=== PATIENT | female | born 1965 | race African-American/Black ===

== ENCOUNTER 2017-07-17 15:42 | Outpatient (CLI) | payer OTHER | END 2017-07-17 15:43 | disposition home or self-care (01) | LOC: BICRAD 15:42 | PROVIDERS: ATTEND Internal Medicine | DX: Z02.71 Encounter for disability determination (principal) | CPT/HCPCS: 71046 ==

== ENCOUNTER 2018-02-25 08:17 | Inpatient (IN) | payer OTHER, SELFPAY ==
[2018-02-25 10:09] LABS: Troponin I 0.015 ng/mL (< 0.028)
[2018-02-25 12:22] LABS: Troponin I Less than 0.010 ng/mL (< 0.028)
[2018-02-25] MEDS ORDERED: Ondansetron ODT 4 MG TAB PO PRN (17:29)
[2018-02-25] MEDS ORDERED: hydrALAZINE 20 MG/ML VIAL SLOW IVP PRN (17:29)
[2018-02-25] MEDS ORDERED: Dextrose 50% Abboject 50 ML SYRINGE SLOW IVP PRN (17:29)
[2018-02-25] MEDS ORDERED: cloNIDine 0.1 MG TAB PO PRN (17:29)
[2018-02-25] MEDS ORDERED: Dextrose 5% in Water 1,000 ML IV PRN (17:29)
[2018-02-25] MEDS ORDERED: Ondansetron PF 4 MG/2 ML Vial IVP PRN (17:29)
[2018-02-25 17:31] VITALS: BMI 26.2
[2018-02-25] MEDS: Carvedilol 6.25 MG TAB PO SCH (20:12)
[2018-02-25] MEDS: Famotidine 20 MG TAB PO SCH (20:14)
[2018-02-25] MEDS: Mometasone/Formoterol 120 PUFF INHALER INH SCH (20:27)
[2018-02-25] MEDS: cefTRIAXone\\ROCEPHIN 2 GM in Sodium Chloride 0.9% 100 ML IVPB SCH (20:47)
--- NOTE | 2018-02-25 21:41 | HP ---
DATE OF ADMISSION: 02/25/2018 PRIMARY CARE PROVIDER: Dr. Sara Clemens. CHIEF COMPLAINT: Shortness of breath and cough. HISTORY OF PRESENT ILLNESS: This is a 52-year-old -Swedish female who presents to [facility] Emergency Department in transfer from [place] [facility] after complaining of incr easing shortness of breath over the last 48 to 72 hours. The patient was initially evaluated by EMS with O2 saturations measured at 89% to 90% on room air. Patient received DuoNebs x2 in addition to S shawna-Medrol and placed on oxygen supplementation. Patient states she has noticed increasing shortness of breath and was exposed to a friend who had upper respiratory infection and symptoms in the last 4 days. Patient denied any productive cough, but does state she has a history of asthma and COPD and has a home nebulizer which she has been using regularly. Patient also took cough drops as well as Al -Ruby Cold medicine. Patient states none of her interventions were alleviated her symptoms. Pat ient denies any other chemical exposure, recent drug use or tobacco. Patient denies any recent diagn osis of pneumonia, immunosuppressant medications or travel history. In the emergency room, patient u nderwent chest imaging showing bilateral infiltrates receiving bronchodilator therapy and Solu-Medrol . Patient also received IV Solu-Medrol and bronchodilator therapy and [facility]. PAST MEDICAL HISTORY: 1. History of hepatitis B. 2. Diabetes mellitus type 2, on oral hypoglycemics. 3. Diastolic dysfunction with ejection fraction of 40-45%. 4. Chronic obstructive pulmonary disease. 5. History of tobacco use, none currently. 6. Hyperlipidemia. 7. Hypertension. PAST SURGICAL HISTORY: Status post hysterectomy. CURRENT MEDICATIONS: 1. Metformin 500 mg p.o. daily. 2. ProAir HFA 2 puffs inhaled q.4 hours p.r.n. 3. Carvedilol 6.25 mg p.o. b.i.d. 4. Lasix 40 mg p.o. b.i.d. 5. Spironolactone 12.5 mg p.o. daily. 6. Nitrostat 0.4 mg sublingually p.r.n. chest pain. 7. Paxil 20 mg p.o. daily. 8. Aspirin 325 mg p.o. daily. 9. DuoNeb 3 mL nebulized q.i.d. p.r.n. ALLERGIES: No known drug allergies. FAMILY HISTORY: Mother with congestive heart failure, chronic kidney disease, and diabetes mellitus. Father with prostate and throat cancer. SOCIAL HISTORY: Patient formerly used tobacco products x15 years. History of alcohol use socially. No current illicit drug use. Remote history of cocaine and marijuana use. with 2 children . Lives in [place], [place]. REVIEW OF SYSTEMS: The following complete review of systems was negative, unless otherwise mentioned in the HPI or below: Constitutional: Weight loss or gain, ability to conduct usual activities. Sk in: Rash, itching. Eyes: Double vision, pain. ENT/Mouth: Nose bleeding, neck stiffness, pain, te nderness. Cardiovascular: Palpitations, dyspnea on exertion, orthopnea. Respiratory: Shortness of breath, wheezing, cough, hemoptysis, fever or night sweats. Gastrointestinal: Poor appetite, abdom inal pain, heartburn, nausea, vomiting, constipation, or diarrhea. Genitourinary: Urgency, frequenc y, dysuria, nocturia. Musculoskeletal: Pain, swelling. Neurologic/Psychiatric: Anxiety, depressio n. Allergy/Immunologic: Skin rash, bleeding tendency. PHYSICAL EXAMINATION: VITAL SIGNS: Currently, blood pressure 154/90, pulse 82, respiratory rate 20, temperature 98.7 degre es Fahrenheit, O2 saturation 98% on 3 liters per minute by nasal cannula. GENERAL APPEARANCE: This is a 52-year-old -Swedish female, alert and oriented x3, pleasant, in no acute distress. HEENT: Pupils are equal, round, and reactive to light and accommodation. Extraocular muscles are in tact. No scleral icterus, no conjunctival injection. Nares patent. OP is clear. Teeth in fair rep air. NECK: Supple, no cervical adenopathy, no thyromegaly, no carotid bruits, no JVD appreciated. Cervic al spine with full active and passive range of motion. No meningeal signs appreciated. LUNGS: Coarse breath sounds bilaterally with expiratory wheezes and basilar crackles. CARDIOVASCULAR: S1, S2, without noted murmur, rub or gallop. ABDOMEN: Rounded, soft, nontender, nondistended. Bowel sounds are positive in all four quadrants. There is no hepatosplenomegaly, no abdominal bruits, no rebound or guarding appreciated. EXTREMITIES: Warm and dry with fair turgor. No clubbing, cyanosis or asymmetric edema appreciated. Pulses palpable distally at the dorsalis pedis, posterior tibial, and popliteal arteries bilaterally . Capillary refill less than 2 seconds. NEUROLOGIC: Cranial nerves II-XII are grossly intact. No focal or lateralizing signs appreciated. PERTINENT LABORATORY AND X-RAY FINDINGS: Sodium 142, potassium 3.6, chloride 108, CO2 of 26, BUN 14, creatinine 0.94, glucose 128. Hemoglobin A1c 6.2, glucose 128, calcium 8.7. LFTs within normal chairez its. Troponin I negative x3. BNP 108, previously noted 33 on 07/05/2017 and 107 on 04/29/2016. CBC showed a white blood cell count of 4.2, hemoglobin 10.7, hematocrit 35, MCV 67, platelet count 128 w ith normal differential. Portable chest x-ray dated 02/25/2018 showed bilateral opacities with quest ionable multifocal infiltrates. ASSESSMENT AND PLAN: 1. Acute hypoxic respiratory failure. Patient will be observed on the telemetry unit. Suspect mult ifactorial including component of potential pneumonia with chronic obstructive pulmonary disease. We will continue treatment as outlined in #2. Oxygen supplementation to maintain O2 saturation greater than or equal to 90%. Solu-Medrol 40 mg IV q.6 hours, Dulera 2 puffs inhaled b.i.d. 2. Bilateral pneumonia. Suspect bacterial in origin; however, atypical. Suspect gram positive orga nisms. Continue Zithromax 500 mg IV q.24 hours with additional Rocephin 2 grams IV q.24 hours. Bloo d cultures x2 pending. DuoNebs q.4 hours. 3. Hypertension, labile. We will resume home antihypertensive regimen after confirmation of home re gimen. P.r.n. hydralazine and clonidine. 4. Diabetes mellitus type 2. Continue home regimen of metformin. Serial Accu-Cheks before meals an d at bedtime. ADA diet. 5. Diastolic dysfunction. Appears compensated currently. Resume home regimen to include Lasix 40 m g b.i.d. 6. Prophylaxis. Sequential compression devices while in bed. Pepcid 20 mg p.o. b.i.d. 7. Influenza vaccination update prior to discharge. 8. Code status is FULL. Surrogate medical decision maker not identified.
[2018-02-25] MEDS: Azithromycin 500 MG in Sodium Chloride 0.9% 250 ML 250 ML IVPB SCH (21:47)
[2018-02-26] MEDS: Benzonatate 100 MG CAP PO PRN (02:41)
[2018-02-26 04:39] LABS: Band 1 % (5-11); Hemoglobin 10.4 g/dL (12.0-16.0); Hypochromia SLIGHT = 6-15 cells (100X) (0-5/hpf); Lymphocytes 19 % (21-51); MDiff Complete? YES; Mean Corpuscular HGB CONC 32.7 g/dL (32.0-36.0); Mean Corpuscular Hemoglobin 21.2 pg (27.0-31.0); Mean Platelet Volume 8.6 fL (7.4-10.4); Microcytosis SLIGHT = 6-15 cells (100X) (0-5/hpf); Monocytes 2 % (0-10); Neutrophil 78 % (42-75); PLT Morphology Comment Appears Decreased; Platelet Count 120 thou/uL (130-400); RBC Distribution Width 18.1 % (11.5-14.5); Red Blood Cell (RBC) Count 4.91 mill/uL (4.20-5.40); Target Cells MODERATE= 6-15 cells (100X) (0-1/hpf); White Blood Cell (WBC) Count 4.9 thou/uL (4.8-10.8)
[2018-02-26 04:55] LABS: Anion Gap 11 mmol/L (10-20); BUN (Urea Nitrogen) 14 mg/dL (9.8-20.1); Calc. Creatinine Clearance 74 mL/min (70-130); Calcium 8.7 mg/dL (7.8-10.44); Carbon Dioxide 23 mmol/L (22-29); Chloride 106 mmol/L (98-107); Estimated GFR-MDRD 71; Glucose 288 mg/dL (70-105); Potassium 4.2 mmol/L (3.5-5.1); Sodium 136 mmol/L (136-145)
[2018-02-26] MEDS: HumaLOG 300 UNITS/3 ML VIAL SC PRN ×4 (05:11→21:49)
[2018-02-26] MEDS: Mometasone/Formoterol 120 PUFF INHALER INH SCH ×2 (08:00→18:43)
[2018-02-26] MEDS: Lisinopril 20 MG TAB PO SCH (08:24)
[2018-02-26] MEDS: Spironolactone 25 MG TAB PO SCH (08:24)
[2018-02-26] MEDS: metFORMIN 500 MG TAB PO SCH (08:24)
[2018-02-26] MEDS: Famotidine 20 MG TAB PO SCH ×2 (08:24→20:17)
[2018-02-26] MEDS: PARoxetine 20 MG TAB PO SCH (08:24)
[2018-02-26] MEDS: Carvedilol 6.25 MG TAB PO SCH ×2 (08:25→20:17)
[2018-02-26] MEDS ORDERED: guaiFENesin 200 MG TAB PO PRN (08:47)
--- NOTE | 2018-02-26 08:50 | PDOC.PN ---
- Subjective Encounter Start Date: 02/26/18 Encounter Start Time: 08:49 Patient sitting up in bed, she reports feeling better today but still complaining of a cough. She states she has some tightness in her chest worse with inspiration and cough. She reports some mild shortness of breath, but denies fever, chills, nausea or vomiting. - Objective Resuscitation Status: Resuscitation Status FULL:Full Resuscitation MAR Reviewed: Yes Vital Signs & Weight: Vital Signs (12 hours) Temp Pulse Resp BP Pulse Ox 02/26/18 08:00 96 02/26/18 07:58 93 18 95 02/26/18 07:24 97.9 F 71 16 154/105 H 98 02/26/18 04:15 97.9 F 70 22 H 166/91 H 97 02/26/18 02:47 97 02/25/18 23:50 98 02/25/18 23:47 97.5 F L 65 16 161/90 H 98 Weight Weight 158 lb I&O: 02/25/18 02/26/18 02/27/18 06:59 06:59 06:59 Intake Total 350 Output Total 700 Balance -350 Result Diagrams: 02/26/18 03:52 02/26/18 03:52 Additional Labs: Accuchecks 02/26/18 02/25/18 04:20 21:15 POC Glucose 267 H 208 H Radiology Reviewed by me: Yes Phys Exam - Physical Examination Mild due to wheezing and shortness of breath HEENT: PERRLA, moist MMs, oral pharynx no lesions Neck: no nodes, no JVD, supple Bilateral expiratory wheezes noted Cardiovascular: RRR, no significant murmur, no rub Gastrointestinal: soft, non-tender, no distention, positive bowel sounds Musculoskeletal: no edema, pulses present Neurological: non-focal, normal sensation, moves all 4 limbs Lymphatic: no nodes Psychiatric: normal affect, A&O x 3 Skin: no rash, normal turgor, cap refill <2 seconds Dx/Plan (1) Pneumonia Code(s): J18.9 - PNEUMONIA, UNSPECIFIED ORGANISM Status: Acute (2) COPD exacerbation Code(s): J44.1 - CHRONIC OBSTRUCTIVE PULMONARY DISEASE W (ACUTE) EXACERBATION Status: Acute (3) Diabetes mellitus Code(s): E11.9 - TYPE 2 DIABETES MELLITUS WITHOUT COMPLICATIONS Status: Chronic Qualifiers: Diabetes mellitus type: type 2 (4) Hypertension Code(s): I10 - ESSENTIAL (PRIMARY) HYPERTENSION Status: Chronic Comment: Dietary indiscretions with high sodium foods and did not take coreg and lisinopril at right doses - Plan cont current plan of care, continue antibiotics, respiratory therapy, DVT proph w/SCDs * Continue supportive treatments with carol rothman, add guaifenesin for cough * IV solumedrol with plan to transition to oral prednisone taper * Continue antibiotics including IV azithromycin and ceftriaxone with plan to transition to oral equivalent prior to discharge * Monitor patient progress, likely discharge in the next 24 hours if improved
[2018-02-26] MEDS ORDERED: Prevnar 13-Val Conj/PF 0.5 ML SYRINGE IM ONE (09:00)
[2018-02-26] MEDS: Acetaminophen 500 MG TAB PO PRN (15:27)
[2018-02-26] MEDS: cefTRIAXone\\ROCEPHIN 2 GM in Sodium Chloride 0.9% 100 ML IVPB SCH (17:09)
[2018-02-26] MEDS: Azithromycin 500 MG in Sodium Chloride 0.9% 250 ML 250 ML IVPB SCH (20:17)
[2018-02-27] MEDS: Acetaminophen 500 MG TAB PO PRN ×4 (00:03→21:02)
[2018-02-27] MEDS: Benzonatate 100 MG CAP PO PRN ×3 (00:03→21:02)
[2018-02-27] MEDS: HumaLOG 300 UNITS/3 ML VIAL SC PRN ×4 (05:17→21:05)
[2018-02-27] MEDS: Mometasone/Formoterol 120 PUFF INHALER INH SCH ×2 (07:40→18:49)
[2018-02-27] MEDS: metFORMIN 500 MG TAB PO SCH (08:48)
[2018-02-27] MEDS: PARoxetine 20 MG TAB PO SCH (08:48)
[2018-02-27] MEDS: Carvedilol 6.25 MG TAB PO SCH ×2 (08:48→21:02)
[2018-02-27] MEDS: Spironolactone 25 MG TAB PO SCH (08:48)
[2018-02-27] MEDS: Lisinopril 20 MG TAB PO SCH (08:48)
[2018-02-27] MEDS: Famotidine 20 MG TAB PO SCH ×2 (08:49→21:03)
[2018-02-27 09:35] LABS: #Lymphocytes 0.5 thou/uL (1.20-3.40); #Monocytes 0.2 thou/uL (0.11-0.59); #Neutrophils 7.3 thou/uL (1.40-6.50); %Eosinophils 0.2 % (0.0-10.0); %Lymphocytes 6.4 % (21.0-51.0); %Neutrophils 90.5 % (42.0-75.0); Hemoglobin 11.3 g/dL (12.0-16.0); Mean Corpuscular HGB CONC 32.4 g/dL (32.0-36.0); Mean Corpuscular Hemoglobin 21.1 pg (27.0-31.0); Mean Corpuscular Volume 65.2 fL (78.0-98.0); Mean Platelet Volume 8.4 fL (7.4-10.4); Platelet Count 141 thou/uL (130-400); RBC Distribution Width 18.3 % (11.5-14.5); Red Blood Cell (RBC) Count 5.36 mill/uL (4.20-5.40)
[2018-02-27 09:50] LABS: Anion Gap 12 mmol/L (10-20); BUN (Urea Nitrogen) 19 mg/dL (9.8-20.1); Calc. Creatinine Clearance 73 mL/min (70-130); Carbon Dioxide 24 mmol/L (22-29); Chloride 105 mmol/L (98-107); Estimated GFR-MDRD 67; Glucose 358 mg/dL (70-105); Potassium 4.4 mmol/L (3.5-5.1); Sodium 137 mmol/L (136-145)
[2018-02-27 10:04] LABS: Hypochromia MODERATE=16-30 cells (100X) (0-5/hpf); MDiff Complete? YES; Microcytosis MODERATE=15-30 cells (100X) (0-5/hpf); PLT Morphology Comment Appears Adequate; Polychromasia SLIGHT = 2-3 cells (100X) (0-2/hpf); Target Cells MODERATE= 6-15 cells (100X) (0-1/hpf)
--- NOTE | 2018-02-27 10:53 | RAD ---
PORTABLE CHEST: History: Cough. Comparison: 02-25-18 FINDINGS: Heart size is enlarged. Pulmonary vessels appear engorged with increased parenchymal markings, more i n the parahilar distribution. On the previous examination the appear to be more upper lobe. I think t his is more just technique related. In reviewing an old examination from 07-17-17, I do not see that t here is a definite interval change. I believe that these changes are related to interstitial fibrotic lung change. IMPRESSION: Cardiomegaly with chronic interstitial fibrotic lung change. POS: ISHA
--- NOTE | 2018-02-27 12:36 | PDOC.PN ---
- Subjective Encounter Start Date: 02/27/18 Encounter Start Time: 10:00 Patient lying in bed, she reports feeling a little better today, but remains short of breath with persistent cough. She denies chest pain. Is reports some side and rib pain from coughing worse with inspiration. - Objective Resuscitation Status - Order Detail: 02/26/18 12:20 Resuscitation Status Routine Resuscitation Status: FULL: Full Resuscitation Discussed with: Per previous order MAR Reviewed: Yes Vital Signs & Weight: Vital Signs (12 hours) Temp Pulse Resp BP Pulse Ox 02/27/18 11:00 97.1 F L 69 20 174/85 H 97 02/27/18 10:49 73 16 02/27/18 08:11 97.1 F L 81 20 172/93 H 96 02/27/18 07:40 96 02/27/18 07:39 71 20 96 02/27/18 05:07 98.1 F 65 20 139/82 95 02/27/18 02:34 72 18 95 Weight Weight 163 lb 8 oz I&O: 02/26/18 02/27/18 02/28/18 06:59 06:59 06:59 Intake Total 350 1400 Output Total 700 850 Balance -350 550 Result Diagrams: 02/27/18 09:20 02/27/18 09:20 Additional Labs: Accuchecks 02/27/18 02/27/18 02/26/18 11:10 05:15 21:21 POC Glucose 344 H 273 H 260 H 02/26/18 17:07 POC Glucose 242 H Radiology Reviewed by me: Yes (Showing chronic interstitial fibrotic changes) EKG Reviewed by me: Yes Phys Exam - Physical Examination Constitutional: NAD HEENT: PERRLA, moist MMs, oral pharynx no lesions Neck: no nodes, no JVD, supple Expiratory wheezes throughout, improved since 02/26 Cardiovascular: RRR, no significant murmur, no rub Gastrointestinal: soft, non-tender, positive bowel sounds Musculoskeletal: no edema, pulses present Neurological: non-focal, normal sensation, moves all 4 limbs Lymphatic: no nodes Psychiatric: normal affect, A&O x 3 Skin: no rash, normal turgor, cap refill <2 seconds Dx/Plan (1) Pneumonia Code(s): J18.9 - PNEUMONIA, UNSPECIFIED ORGANISM Status: Acute (2) COPD exacerbation Code(s): J44.1 - CHRONIC OBSTRUCTIVE PULMONARY DISEASE W (ACUTE) EXACERBATION Status: Acute (3) Diabetes mellitus Code(s): E11.9 - TYPE 2 DIABETES MELLITUS WITHOUT COMPLICATIONS Status: Chronic Qualifiers: Diabetes mellitus type: type 2 (4) Hypertension Code(s): I10 - ESSENTIAL (PRIMARY) HYPERTENSION Status: Chronic Comment: Dietary indiscretions with high sodium foods and did not take coreg and lisinopril at right doses - Plan cont current plan of care, DVT proph w/SCDs * Due to elevated blood pressures will increase carvedilol to 12.5mg BID * Chest xray displaying interstitial fibrotic changes, ordered CT chest for evaluation and consult placed for pulmonology for evaluation * Continue Antibiotics including ceftriaxone and azithromycin * IV solumedrol, along with Duoneb treatments * Continue all other home medications
[2018-02-27] MEDS ORDERED: Carvedilol 6.25 MG TAB PO SCH (12:45)
--- NOTE | 2018-02-27 12:52 | PDOC.EVN ---
Event Note - Event Note Event Note: I have interviewed, examined and discussed pt with Tani LAWS regarding dyspnea and interstitial lung changes on current abx, Solumedrol. Mild improvement in symptoms but maintaining saturations on RA. Repeat PCXR showing persistent interstitial changes. Check CT chest today, ? sarcoidosis. See progress note documentation for full details. Consult Pulmonology for further recommendations.
--- NOTE | 2018-02-27 14:49 | CT ---
CT THORAX WITH CONTRAST: DATE: 02/27/18 HISTORY: 52-year-old female with cough and dyspnea. Rule out fibrotic disease. COMPARISON: CT pulmonary angiogram of 11/20/13. FINDINGS: The previously demonstrated heterogeneously distributed fibrotic interstitial lung disease has worsen ed. This is present in the bilateral upper lobes and lower lobes, but slightly more severe in the upp er lobes. They have both central and peripheral components (no subpleural dominance). They are associ ated with diffuse mild to moderate bronchiectasis in the areas involved. There are patchy areas of pu lmonary parenchyma that are relatively spared, most notably the right middle lobe. The pattern is not that of IPF/UIP. There is no pneumothorax or pleural effusion. Previously, there was severe, conflu ent soft tissue density without calcification throughout much of the mediastinum, especially subcarin al region, with contiguous extension into the bilateral susannah. This is still present, but has improved . No calcified mediastinal or hilar lymph nodes are present. Again noted are the very nodular margins of the liver. There is probably splenomegaly, but only the uppermost portion of the spleen is includ ed on this scan, and therefore the evaluation is incomplete. There are small paraesophageal varices i n the thoracoabdominal junction adjacent to the aorta. No thoracic aortic aneurysm or dissection. No cardiomegaly or pericardial effusion. IMPRESSION: 1. Severe bilateral pulmonary fibrosis has worsened since 2014. (This is NOT idiopathic pulmonary fi brosis/usual interstitial pneumonia). 2. Mediastinal and bilateral hilar lymphadenopathy has slightly improved compared to 2014. 3. Hepatic cirrhosis. 4. Paraesophageal varices. JAME Almanzar POS: ISHA
[2018-02-27] MEDS ORDERED: Iopamidol 370 76% 100 ML VIAL ONE (16:46)
[2018-02-27] MEDS: cefTRIAXone\\ROCEPHIN 2 GM in Sodium Chloride 0.9% 100 ML IVPB SCH (17:12)
[2018-02-27] MEDS: Azithromycin 500 MG in Sodium Chloride 0.9% 250 ML 250 ML IVPB SCH (21:03)
[2018-02-28] MEDS: HumaLOG 300 UNITS/3 ML VIAL SC PRN ×4 (06:14→23:17)
[2018-02-28] MEDS: Mometasone/Formoterol 120 PUFF INHALER INH SCH ×2 (06:40→18:59)
--- NOTE | 2018-02-28 08:47 | CON ---
DATE OF CONSULTATION: 02/27/2018 HISTORY OF PRESENT ILLNESS: 52-year-old female, who was seeing Dr. Madrigal in the remote past, comes into the hospital with shortness of breath, cough, and wheezing. She says, over the last 3 years, she has had history of COPD, asthma diagnosis. She denies any chest pain, chills, or sweats. She was admitted yesterday. X-ray is actually consistent with congestive heart failure. The CAT scan done today shows significant fibrotic changes in both lungs, not much pleural effusion. She says at most she can barely walk 100 feet without getting markedly short of breath. She denies any fever or chills. She has an inhaler at home and a nebulizer, which were prescribed by her primary care physician. PAST MEDICAL HISTORY: Pertinent for CHF, COPD, asthma, previous tobacco abuse, hypertension, apparently hepatitis B, and diabetes. MEDICATIONS: From home includes metformin 500, potassium, Prozac 20, lisinopril 40, Lasix 40 twice a day, Coreg 6.25, and HFA albuterol. ALLERGIES: NONE. SOCIAL HISTORY: Disabled. Alcohol, minimal. Tobacco, smoked maybe a pack every week or so, quit smoking about 4 years ago. PAST SURGICAL HISTORY: Hysterectomy. REVIEW OF SYSTEMS: Otherwise 10-point negative. PHYSICAL EXAMINATION: GENERAL: Appears to be in no acute distress. VITAL SIGNS: Blood pressure is 174/85, saturation 97% on room air, respirations 20, temperature 97, pulse 69. CHEST: Reveals minimal crackles, minimal rhonchi, minimal wheezing bilaterally. CARDIAC: Normal S1 and S2. No gallops. LABORATORY DATA: White count 8000, H and H 11 and 35, platelet count 141. Lytes are normal. IMPRESSION: 1. Bilateral reticulonodular infiltrates consistent with fibrosing lung. 2. Tobacco abuse. 3. Asthma. 4. Diastolic dysfunction. 5. Hepatitis B. PLAN: At this stage, continue empiric antibiotics, neb treatments with steroids and Dulera. Pulmonary function tests prior to discharge. We will notify Dr. Madrigal. We will follow. Job ID: [id number]
[2018-02-28] MEDS: Lisinopril 20 MG TAB PO SCH (08:59)
[2018-02-28] MEDS: metFORMIN 500 MG TAB PO SCH (08:59)
[2018-02-28] MEDS: Spironolactone 25 MG TAB PO SCH (08:59)
[2018-02-28] MEDS: Famotidine 20 MG TAB PO SCH ×2 (09:00→20:33)
[2018-02-28] MEDS: Carvedilol 6.25 MG TAB PO SCH ×2 (09:00→20:32)
[2018-02-28] MEDS: Acetaminophen 500 MG TAB PO PRN ×2 (09:00→23:18)
[2018-02-28] MEDS: PARoxetine 20 MG TAB PO SCH (09:00)
[2018-02-28] MEDS: Benzonatate 100 MG CAP PO PRN (09:00)
--- NOTE | 2018-02-28 16:40 | PDOC.PN ---
- Subjective Encounter Start Date: 02/28/18 Encounter Start Time: 16:40 Patient sitting up in bed, she reports feeling better. She denies chest pain. Mild stable shortness of breath, intermittent cough. CT chest revealed fibrosis. Pulmonology services were consulted, Dr Mooney recommending continuing abx, duonebs, steroids. - Objective Resuscitation Status - Order Detail: 02/26/18 12:20 Resuscitation Status Routine Resuscitation Status: FULL: Full Resuscitation Discussed with: Per previous order MAR Reviewed: Yes Vital Signs & Weight: Vital Signs (12 hours) Temp Pulse Resp BP Pulse Ox 02/28/18 15:52 98.0 F 68 14 141/90 H 96 02/28/18 13:50 66 14 97 02/28/18 10:48 98.0 F 65 20 152/81 H 93 L 02/28/18 09:48 65 16 98 02/28/18 07:45 98.0 F 65 20 173/98 H 95 02/28/18 06:38 61 16 99 02/28/18 05:12 98.4 F 63 16 172/104 H 97 Weight Weight 167 lb 11.2 oz I&O: 02/27/18 02/28/18 03/01/18 06:59 06:59 06:59 Intake Total 1400 1950 Output Total 850 Balance 550 1950 Result Diagrams: 02/27/18 09:20 02/27/18 09:20 Additional Labs: Accuchecks 02/28/18 02/28/18 02/27/18 10:53 05:19 20:27 POC Glucose 323 H 252 H 258 H 02/27/18 16:29 POC Glucose 256 H Radiology Reviewed by me: Yes Phys Exam - Physical Examination Constitutional: NAD HEENT: PERRLA, moist MMs, oral pharynx no lesions Neck: no nodes, no JVD, supple Respiratory: no rales, no rhonchi Coarse breath sounds Cardiovascular: RRR, no significant murmur, no rub Gastrointestinal: soft, non-tender, positive bowel sounds Musculoskeletal: no edema, pulses present Neurological: non-focal, normal sensation, moves all 4 limbs Lymphatic: no nodes Psychiatric: normal affect, A&O x 3 Skin: no rash, normal turgor, cap refill <2 seconds Dx/Plan (1) Pneumonia Code(s): J18.9 - PNEUMONIA, UNSPECIFIED ORGANISM Status: Acute (2) COPD exacerbation Code(s): J44.1 - CHRONIC OBSTRUCTIVE PULMONARY DISEASE W (ACUTE) EXACERBATION Status: Acute (3) Diabetes mellitus Code(s): E11.9 - TYPE 2 DIABETES MELLITUS WITHOUT COMPLICATIONS Status: Chronic Qualifiers: Diabetes mellitus type: type 2 (4) Hypertension Code(s): I10 - ESSENTIAL (PRIMARY) HYPERTENSION Status: Chronic Comment: Dietary indiscretions with high sodium foods and did not take coreg and lisinopril at right doses (5) Pulmonary fibrosis Code(s): J84.10 - PULMONARY FIBROSIS, UNSPECIFIED Status: Acute - Plan cont current plan of care, plan discussed w/ family, continue antibiotics * Pulmonology services following, planning for PFTs * Continue abx, duonebs, steroids for now * Continue other home medications * Further medical management pending PFTs
[2018-02-28] MEDS: cefTRIAXone\\ROCEPHIN 2 GM in Sodium Chloride 0.9% 100 ML IVPB SCH (17:18)
[2018-02-28] MEDS: Azithromycin 500 MG in Sodium Chloride 0.9% 250 ML 250 ML IVPB SCH (20:31)
--- NOTE | 2018-02-28 20:46 | PRG ---
DATE OF SERVICE: 02/28/2018 SUBJECTIVE: Carmelina Collazo says she is feeling better. Her vital signs have been stable. OBJECTIVE: VITAL SIGNS: She is afebrile, heart rate 68, respiratory rate 14, oximetry is 96% on room air, and blood pressure 141/90. LUNGS: Remarkable for end-expiratory wheezes. HEART: Regular rhythm. ABDOMEN: Soft. EXTREMITIES: Without edema. NEURO: Grossly nonfocal. IMPRESSION: 1. Interstitial lung disease of unclear etiology. At this point in time, did not plan a surgical lung biopsy, but this will need to be followed closely. 2. History of chronic obstructive pulmonary disease and asthma, which is probably more reason for her admission. I doubt this is allergic bronchopulmonary aspergillosis. I doubt she has vasculitis, but it will remain in the differential. PLAN: We will continue to follow . Hopefully debbie will be ready to go home in 24 to 48 hours with close outpatient followup. Job ID: [id number] MTDD
[2018-03-01] MEDS: cloNIDine 0.1 MG TAB PO PRN (05:51)
[2018-03-01] MEDS: HumaLOG 300 UNITS/3 ML VIAL SC PRN ×4 (06:00→20:43)
[2018-03-01] MEDS: Mometasone/Formoterol 120 PUFF INHALER INH SCH ×2 (07:05→18:42)
[2018-03-01] MEDS: Carvedilol 6.25 MG TAB PO SCH ×2 (08:28→20:44)
[2018-03-01] MEDS: Famotidine 20 MG TAB PO SCH ×2 (08:28→20:45)
[2018-03-01] MEDS: PARoxetine 20 MG TAB PO SCH (08:28)
[2018-03-01] MEDS: Lisinopril 20 MG TAB PO SCH (08:29)
[2018-03-01] MEDS: metFORMIN 500 MG TAB PO SCH (08:29)
[2018-03-01] MEDS: Spironolactone 25 MG TAB PO SCH (08:29)
--- NOTE | 2018-03-01 11:38 | PRG ---
DATE OF SERVICE: 03/01/2018 SUBJECTIVE: Carmelina Collazo says she is feeling better. She is still quite bronchospastic. OBJECTIVE: VITAL SIGNS: She is afebrile. Heart rate in the 50s, blood pressure is elevated from 161 to 173 this morning, saturation is 93%. LUNGS: Remarkable for coarse diffuse wheezes. HEART: Regular rhythm. ABDOMEN: Soft and nontender. IMPRESSION: 1. Chronic obstructive pulmonary disease exacerbation. I have send an alpha1-antitrypsin level. 2. Interstitial lung disease with cystic changes. I doubt this is lymphangioleiomyomatosis. Eosinophilic granuloma was still in the differential. 3. Mediastinal lymph nodes that are improved compared to 2014. 4. Cirrhosis with esophageal varices seen on CT. 5. We will continue with current care. She can be switched to p.o. antimicrobial therapy. Probably, she continue with IV steroids for now, but we will decrease the dose. We will continue to follow. I have encouraged her to make sure she follows up with us she does go home, but she is probably several days away from being discharged. 6. ??Cirrhosis Job ID: [id number] MTDD
--- NOTE | 2018-03-01 16:30 | PDOC.PN ---
- Subjective Encounter Start Date: 03/01/18 Encounter Start Time: 10:00 Patient lying in bed, she reports feeling a little better. She denies chest pain , fever or chills. She reports some shortness of breath with intermittent cough. - Objective Resuscitation Status - Order Detail: 02/26/18 12:20 Resuscitation Status Routine Resuscitation Status: FULL: Full Resuscitation Discussed with: Per previous order MAR Reviewed: Yes Vital Signs & Weight: Vital Signs (12 hours) Temp Pulse Resp BP BP Pulse Ox 03/01/18 15:52 63 16 03/01/18 15:49 98.2 F 62 18 144/90 H 93 L 03/01/18 11:28 97.8 F 63 16 138/84 96 03/01/18 10:29 65 16 03/01/18 08:29 173/95 H 03/01/18 08:28 173/95 H 03/01/18 07:33 98.4 F 60 20 161/101 H 93 L 03/01/18 07:05 55 L 16 03/01/18 06:52 55 L 16 03/01/18 05:51 173/95 H 03/01/18 05:00 97.9 F 60 16 173/95 H 96 Weight Weight 168 lb 5 oz I&O: 02/28/18 03/01/18 03/02/18 06:59 06:59 06:59 Intake Total 1950 730 Output Total 900 Balance 1950 -170 Result Diagrams: 02/27/18 09:20 02/27/18 09:20 Additional Labs: Accuchecks 03/01/18 03/01/18 02/28/18 10:32 05:55 20:04 POC Glucose 285 H 246 H 343 H 02/28/18 16:43 POC Glucose 243 H Radiology Reviewed by me: Yes EKG Reviewed by me: Yes Phys Exam - Physical Examination Constitutional: NAD HEENT: PERRLA, moist MMs, oral pharynx no lesions Neck: no nodes, no JVD Coarse breath sounds, expiratory wheezes bilaterally Cardiovascular: RRR, no significant murmur, no rub Gastrointestinal: soft, non-tender, no distention, positive bowel sounds Musculoskeletal: no edema, pulses present Neurological: non-focal, normal sensation, moves all 4 limbs Lymphatic: no nodes Psychiatric: normal affect, A&O x 3 Skin: no rash, normal turgor, cap refill <2 seconds Dx/Plan (1) Pneumonia Code(s): J18.9 - PNEUMONIA, UNSPECIFIED ORGANISM Status: Acute (2) COPD exacerbation Code(s): J44.1 - CHRONIC OBSTRUCTIVE PULMONARY DISEASE W (ACUTE) EXACERBATION Status: Acute (3) Diabetes mellitus Code(s): E11.9 - TYPE 2 DIABETES MELLITUS WITHOUT COMPLICATIONS Status: Chronic Qualifiers: Diabetes mellitus type: type 2 (4) Hypertension Code(s): I10 - ESSENTIAL (PRIMARY) HYPERTENSION Status: Chronic Comment: Dietary indiscretions with high sodium foods and did not take coreg and lisinopril at right doses (5) Pulmonary fibrosis Code(s): J84.10 - PULMONARY FIBROSIS, UNSPECIFIED Status: Acute - Plan cont current plan of care, continue antibiotics * Continue medical management * Pulmonology following, Await Alpha 1 antitrypsin. Continue abx and wean off steroids * Continue duonebs, patient may benefit from bronchoscopy in future but will leave up to pulmonology * BP elevated this morning, but improved after home medications, IV hydralazine prn * d/c tele, transfer to medical floor
[2018-03-01] MEDS: Furosemide 80 MG TAB PO SCH (20:45)
[2018-03-01] MEDS: Acetaminophen 500 MG TAB PO PRN (20:47)
--- NOTE | 2018-03-01 20:47 | PDOC.EVN ---
Event Note - Event Note Event Note: Patient discussed with Tani Jovel and records reviewed. Patient examined. Diffuse rales on lung exam, but less than anticipated after reviewing the CT. Discussed the situation with the patient at length. Also discussed with her daughter by phone. Continuing the steroids for the pulmonary fibrosis/ inflammation. Pulmonary following.
[2018-03-01] MEDS: Cefuroxime Axetil 250 MG TAB PO SCH (20:49)
[2018-03-02] MEDS: HumaLOG 300 UNITS/3 ML VIAL SC PRN ×4 (05:29→21:01)
[2018-03-02] MEDS: Mometasone/Formoterol 120 PUFF INHALER INH SCH ×2 (06:34→18:42)
[2018-03-02] MEDS: cloNIDine 0.1 MG TAB PO PRN (08:42)
[2018-03-02] MEDS: PARoxetine 20 MG TAB PO SCH (08:43)
[2018-03-02] MEDS: Potassium Chloride 20 MEQ TAB PO SCH (08:43)
[2018-03-02] MEDS: Spironolactone 25 MG TAB PO SCH (08:43)
[2018-03-02] MEDS: Cefuroxime Axetil 250 MG TAB PO SCH ×2 (08:43→20:35)
[2018-03-02] MEDS: Famotidine 20 MG TAB PO SCH ×2 (08:44→20:36)
[2018-03-02] MEDS: metFORMIN 500 MG TAB PO SCH (08:44)
[2018-03-02] MEDS: Lisinopril 20 MG TAB PO SCH (08:44)
[2018-03-02] MEDS: Furosemide 80 MG TAB PO SCH ×2 (08:45→20:37)
[2018-03-02] MEDS: Carvedilol 6.25 MG TAB PO SCH ×2 (09:22→20:35)
--- NOTE | 2018-03-02 13:02 | PRG ---
DATE OF SERVICE: 03/02/2018 SUBJECTIVE: She says she is still short of breath with minimal exertion. She does not feel like she is able to go home at the current time. OBJECTIVE: VITAL SIGNS: Temperature 97.7, pulse 60, respirations 16, O2 saturation 96%, and blood pressure 167/96. HEENT: Unremarkable. NECK: No adenopathy or JVD. LUNGS: Clear, but distant. CARDIAC: S1 and S2. Regular. ABDOMEN: Soft. EXTREMITIES: No edema. ASSESSMENT: 1. Chronic obstructive pulmonary disease with exacerbation. 2. Rule out alpha-1 antitrypsin disease. PLAN: Basically, awaiting improvement in the patient's performance status. She is continuing therapy with IV steroids, nebulization treatments, and Dulera. PT will be consulted. Job ID: [id number]
--- NOTE | 2018-03-02 14:35 | PDOC.PN ---
- Subjective Encounter Start Date: 03/02/18 Encounter Start Time: 10:00 Patient sitting up in bed undergoing Duoneb treatment. No signs of acute distress. No chest pain. Mild tightness in her chest with shortness of breath. She continues to improve. - Objective Resuscitation Status - Order Detail: 02/26/18 12:20 Resuscitation Status Routine Resuscitation Status: FULL: Full Resuscitation Discussed with: Per previous order MAR Reviewed: Yes Vital Signs & Weight: Vital Signs (12 hours) Temp Pulse Resp BP BP Pulse Ox 03/02/18 14:19 62 16 97 03/02/18 11:43 97.7 F 60 16 167/96 H 96 03/02/18 10:04 62 16 98 03/02/18 09:22 190/94 H 03/02/18 08:44 190/94 H 03/02/18 08:42 190/94 H 03/02/18 08:00 98.2 F 56 L 16 190/94 H 96 03/02/18 06:36 59 L 16 98 03/02/18 06:34 59 L 16 98 03/02/18 04:04 98.1 F 53 L 16 170/93 H 92 L Weight Weight 168 lb 5 oz I&O: 03/01/18 03/02/18 03/03/18 06:59 06:59 06:59 Intake Total 730 550 Output Total 900 1800 Balance -170 -1250 Result Diagrams: 02/27/18 09:20 02/27/18 09:20 Additional Labs: Accuchecks 03/02/18 03/02/18 03/01/18 10:56 05:25 20:36 POC Glucose 389 H 321 H 433 H 03/01/18 16:49 POC Glucose 372 H Radiology Reviewed by me: Yes <Tani Jovel - Last Filed: 03/02/18 14:43> - Objective Resuscitation Status - Order Detail: 02/26/18 12:20 Resuscitation Status Routine Resuscitation Status: FULL: Full Resuscitation Discussed with: Per previous order Vital Signs & Weight: Weight Weight 160 lb 11.2 oz Result Diagrams: 02/27/18 09:20 02/27/18 09:20 <Kit Harris - Last Filed: 03/11/18 08:50> Phys Exam - Physical Examination Constitutional: NAD HEENT: PERRLA, moist MMs, oral pharynx no lesions Neck: no nodes Coarse breath sounds, improved wheezing undergoing duoneb treatment Cardiovascular: RRR, no significant murmur, no rub Gastrointestinal: soft, non-tender, no distention, positive bowel sounds Musculoskeletal: no edema, pulses present Neurological: non-focal, normal sensation, moves all 4 limbs Lymphatic: no nodes Psychiatric: normal affect, A&O x 3 Skin: no rash, normal turgor, cap refill <2 seconds <Tani Jovel - Last Filed: 03/02/18 14:43> Dx/Plan (1) Pneumonia Code(s): J18.9 - PNEUMONIA, UNSPECIFIED ORGANISM Status: Acute (2) COPD exacerbation Code(s): J44.1 - CHRONIC OBSTRUCTIVE PULMONARY DISEASE W (ACUTE) EXACERBATION Status: Acute (3) Diabetes mellitus Code(s): E11.9 - TYPE 2 DIABETES MELLITUS WITHOUT COMPLICATIONS Status: Chronic Qualifiers: Diabetes mellitus type: type 2 (4) Hypertension Code(s): I10 - ESSENTIAL (PRIMARY) HYPERTENSION Status: Chronic Comment: Dietary indiscretions with high sodium foods and did not take coreg and lisinopril at right doses (5) Pulmonary fibrosis Code(s): J84.10 - PULMONARY FIBROSIS, UNSPECIFIED Status: Acute - Plan cont current plan of care, continue antibiotics, PT/OT * Patient will continue current management, Pulmonology plan to wean off IV steroids and likely continue on oral prednisone * Continue oral abx, duoneb treatments and other home medications. * PT/OT * Await alpha 1 antitrypsin * Sugars remain elevated likely due to steroids, increase sliding scale <Tani Jovel - Last Filed: 03/02/18 14:43> - Plan * . <Kit Harris - Last Filed: 03/11/18 08:50> Attending Addendum - Attending Addendum Date/Time: 03/11/18 0850 Pt seen and examined in conjunction with Tani Jovel PA-C on the day of service. I have seen and evaluated the patient and reviewed all documentations. I agree with the findings and plan as outlined in his note and participated in Medical decision-making. <Kit Harris - Last Filed: 03/11/18 08:50>
[2018-03-02] MEDS ORDERED: Insulin Regular 300 UNITS/3 ML VIAL SC PRN (14:41)
[2018-03-02] MEDS ORDERED: Dextrose 5% in Water 1,000 ML IV PRN (14:41)
[2018-03-02] MEDS ORDERED: Dextrose 50% Abboject 50 ML SYRINGE SLOW IVP PRN (14:41)
[2018-03-02] MEDS: Acetaminophen 500 MG TAB PO PRN (18:21)
[2018-03-03] MEDS: HumaLOG 300 UNITS/3 ML VIAL SC PRN ×3 (05:38→19:19)
[2018-03-03] MEDS: Mometasone/Formoterol 120 PUFF INHALER INH SCH ×2 (08:33→19:27)
[2018-03-03] MEDS: Potassium Chloride 20 MEQ TAB PO SCH (09:32)
[2018-03-03] MEDS: Lisinopril 20 MG TAB PO SCH (09:32)
[2018-03-03] MEDS: Cefuroxime Axetil 250 MG TAB PO SCH ×2 (09:33→21:23)
[2018-03-03] MEDS: PARoxetine 20 MG TAB PO SCH (09:33)
[2018-03-03] MEDS: Amlodipine 5 MG TAB PO SCH (09:33)
[2018-03-03] MEDS: Famotidine 20 MG TAB PO SCH ×2 (09:33→20:03)
[2018-03-03] MEDS: Spironolactone 25 MG TAB PO SCH (09:34)
[2018-03-03] MEDS: metFORMIN 500 MG TAB PO SCH (09:34)
[2018-03-03] MEDS: Carvedilol 6.25 MG TAB PO SCH ×2 (09:34→20:03)
[2018-03-03] MEDS: Furosemide 80 MG TAB PO SCH ×2 (09:34→13:42)
[2018-03-03] MEDS: cloNIDine 0.1 MG TAB PO PRN (09:35)
[2018-03-03] MEDS ORDERED: HumaLOG 300 UNITS/3 ML VIAL SC PRN (13:50)
--- NOTE | 2018-03-03 18:48 | PDOC.PN ---
- Subjective Encounter Start Date: 03/03/18 Encounter Start Time: 17:00 Patient was seen and examined s/p code red on the floor, she was moved to safe environment and transported to another room. She had denied any further symptoms at that time. She appeared alert and oriented no acute distress noted. She denies chest pain, sob, or abdominal pain. - Objective Resuscitation Status - Order Detail: 02/26/18 12:20 Resuscitation Status Routine Resuscitation Status: FULL: Full Resuscitation Discussed with: Per previous order MAR Reviewed: Yes Vital Signs & Weight: Vital Signs (12 hours) Temp Pulse Resp BP BP Pulse Ox 03/03/18 11:48 60 20 03/03/18 11:05 133/83 03/03/18 09:35 184/107 H 03/03/18 08:33 53 L 20 94 L 03/03/18 08:15 53 L 20 94 L 03/03/18 08:05 93 L 03/03/18 08:00 97.6 F 56 L 18 184/107 H 93 L Weight Weight 157 lb 4 oz I&O: 03/02/18 03/03/18 03/04/18 06:59 06:59 06:59 Intake Total 550 941 Output Total 1800 1700 Balance -1250 -699 Result Diagrams: 02/27/18 09:20 02/27/18 09:20 Additional Labs: Accuchecks 03/03/18 03/03/18 03/02/18 11:08 05:39 20:47 POC Glucose 410 H 334 H 383 H Phys Exam - Physical Examination Constitutional: NAD HEENT: PERRLA, moist MMs, oral pharynx no lesions Neck: no nodes, no JVD, supple Coarse breath sounds noted, no increased work of breathing Cardiovascular: RRR, no significant murmur, no rub Gastrointestinal: soft, non-tender, positive bowel sounds Musculoskeletal: no edema, pulses present Neurological: non-focal, normal sensation, moves all 4 limbs Lymphatic: no nodes Psychiatric: normal affect, A&O x 3 Skin: no rash, normal turgor, cap refill <2 seconds Dx/Plan (1) Pneumonia Code(s): J18.9 - PNEUMONIA, UNSPECIFIED ORGANISM Status: Acute (2) COPD exacerbation Code(s): J44.1 - CHRONIC OBSTRUCTIVE PULMONARY DISEASE W (ACUTE) EXACERBATION Status: Acute (3) Diabetes mellitus Code(s): E11.9 - TYPE 2 DIABETES MELLITUS WITHOUT COMPLICATIONS Status: Chronic Qualifiers: Diabetes mellitus type: type 2 (4) Hypertension Code(s): I10 - ESSENTIAL (PRIMARY) HYPERTENSION Status: Chronic Comment: Dietary indiscretions with high sodium foods and did not take coreg and lisinopril at right doses (5) Pulmonary fibrosis Code(s): J84.10 - PULMONARY FIBROSIS, UNSPECIFIED Status: Acute - Plan cont current plan of care, continue antibiotics, respiratory therapy * Continue medical management * Monitor patient symptoms of smoking inhalation closely * Wean off steroids * Sugars elevated therefore sliding scale increased
[2018-03-03] MEDS: predniSONE 20 MG TAB PO SCH (19:19)
[2018-03-03] MEDS: Acetaminophen 500 MG TAB PO PRN (20:42)
[2018-03-04] MEDS: HumaLOG 300 UNITS/3 ML VIAL SC PRN ×3 (05:19→16:10)
[2018-03-04] MEDS: Mometasone/Formoterol 120 PUFF INHALER INH SCH (06:28)
[2018-03-04 07:15] VITALS: BP 138/89; TEMP 98
--- NOTE | 2018-03-04 07:49 | PRG ---
DATE OF SERVICE: 03/03/2018 SUBJECTIVE: She looks and feels well. Had no acute complaints. OBJECTIVE: VITAL SIGNS: On exam, temperature 97.6, pulse 53, blood pressure 184/107, and O2 saturation 94% on room air. HEENT: Unremarkable. NECK: Without adenopathy or JVD. CHEST: Clear without audible wheezing or rhonchi. ABDOMEN: Soft and nontender. EXTREMITIES: No edema. ASSESSMENT: 1. Chronic obstructive pulmonary disease exacerbation. 2. Hyperglycemia with [id number] blood sugars. PLAN: I will go ahead and change her over to oral steroids. I think she can probably go home tomorrow. She may need to be on insulin at home temporarily while the steroids are being tapered. That issue will be left to the hospitalist. Job ID: [id number]
[2018-03-04] MEDS: Amlodipine 5 MG TAB PO SCH (08:20)
[2018-03-04] MEDS: Potassium Chloride 20 MEQ TAB PO SCH (08:20)
[2018-03-04] MEDS: Lisinopril 20 MG TAB PO SCH (08:21)
[2018-03-04] MEDS: Spironolactone 25 MG TAB PO SCH (08:21)
[2018-03-04] MEDS: PARoxetine 20 MG TAB PO SCH (08:21)
[2018-03-04] MEDS: Cefuroxime Axetil 250 MG TAB PO SCH (08:21)
[2018-03-04] MEDS: metFORMIN 500 MG TAB PO SCH (08:21)
[2018-03-04] MEDS: predniSONE 20 MG TAB PO SCH (08:21)
[2018-03-04] MEDS: Famotidine 20 MG TAB PO SCH (08:21)
[2018-03-04] MEDS: Furosemide 80 MG TAB PO SCH ×2 (08:21→12:58)
[2018-03-04] MEDS: Carvedilol 6.25 MG TAB PO SCH (08:22)
--- NOTE | 2018-03-04 15:00 | PRG ---
DATE OF SERVICE: 03/04/2018 SUBJECTIVE: Carmelina Collazo says she is feeling better. OBJECTIVE: VITAL SIGNS: Heart rate is in the 50s this morning, 82 at 1048 hours; blood pressure 138/89; respiratory rate 16; oximetry is 97% on room air. LUNGS: Clear. HEART: Regular rhythm. S1 and S2 normal. ABDOMEN: Soft. LABORATORY DATA: White count is 8, hemoglobin 11.3, and platelets 141,000. Only lab that has been checked is blood sugar in the last few days. IMPRESSION: 1. Chronic obstructive pulmonary disease exacerbation, alpha-1 level is pending. 2. Cirrhosis by CT. She states she used to be a fairly heavy drinker, but has never had this worked up. She does need to see a cost control specialist after discharge. 3. Nodular changes on CT. These will be followed as an outpatient. Doubt she has eosinophilic granuloma, and probably, cut her prednisone back to once a day, which should help with blood sugar control. Job ID: [id number]
[2018-03-05] MEDS ORDERED: predniSONE 20 MG TAB PO SCH (08:00)
--- NOTE | 2018-03-06 15:27 | DIS ---
DATE OF ADMISSION: 02/25/2018 DATE OF DISCHARGE: 03/04/2018 PRIMARY CARE PHYSICIAN: Dr. Sara Clemens. CONSULTANTS: Dr. Mooney, Dr. Madrigal, and Dr. Mcdonald from Pulmonology. PROCEDURES: 1. The patient had a chest x-ray, which showed cardiomegaly with chronic interstitial fibrotic lung change. 2. Chest CT. Impression was;. a. Severe bilateral pulmonary fibrosis, it is worsened since 2014. b. Mediastinal bilateral hilar lymphadenopathy with slight improvement compared to 2014. c. Hepatic cirrhosis. d. Paraesophageal varices. HOSPITAL COURSE: Ms. Collazo is a 52-year-old female, who was admitted on 02/25/2018. She was transferred from the [facility] after complaining of increasing shortness of breath over the last 48 to 72 hours. The patient was initially evaluated by EMS with O2 saturation measured about 89% to 90% on room air. The patient received two DuoNebs in the emergency room in addition to Solu-Medrol and placed on O2. The patient at that time reported that she had noticed some increasing shortness of breath and was exposed to a friend with upper respiratory infection in the last 4 days prior to admission. Reports that she does have a history of asthma and COPD and uses a home nebulizer. The patient was referred to the hospitalist service for admission. Past medical history includes hepatitis B; type 2 diabetes; diastolic dysfunction with an EF of 40% to 45%; chronic obstructive pulmonary disease; history of tobacco use, none currently; hyperlipidemia; and hypertension. The patient was seen by Pulmonology during her stay and recommended empiric antibiotics, neb treatments, steroids, and Dulera. Recommended a pulmonary function test prior to discharge. The patient was seen by Dr. Madrigal. On day of discharge, stated that she was feeling much better, impression of chronic obstructive pulmonary disease exacerbation. Alpha one level was pending. Cirrhosis by CT. Nodular changes on CT. She will be followed as an outpatient. Recommended her prednisone be cut back once a day. The patient was feeling better. Reports she was feeling much less short of breath. Was feeling comfortable with discharge. DISCHARGE DIAGNOSES: 1. Chronic obstructive pulmonary disease exacerbation. 2. Cirrhosis by CT. 3. Nodular changes on CT. Bilateral pneumonia, improved. 4. Hypertension. 5. Diabetes mellitus. 6. Diastolic dysfunction. REVIEW OF SYSTEMS: The patient was examined on the morning of discharge. The patient reports much lesser shortness of breath. Reports that she is breathing easier. Denies a headache. Denies chest pain or palpitations. Denies lower extremity edema. Denied any abdominal pain, nausea, vomiting, or diarrhea. All other systems were reviewed and were negative unless mentioned in the hospital course. PHYSICAL EXAMINATION: VITAL SIGNS: Temperature is 98.7, pulse 66, respirations 16, pulse ox 96% on room air, and blood pressure 112/76. CONSTITUTIONAL: The patient is in no distress. The patient is alert and oriented to person, place, and time. HEENT: Head is atraumatic and normocephalic. Eyes, pupils are equally round and reactive to light. Extraocular muscles are intact. No nystagmus. ENT; mouth exam is normal. Mucous membranes are moist. NECK: Normal range of motion. Trachea is midline. RESPIRATORY/CHEST: Breath sounds are clear. No wheezing. No rales. CARDIOVASCULAR: Heart rate is normal rate and rhythm. Heart sounds are normal. ABDOMEN: Female, nontender abdomen. Bowel sounds are heard. BACK: Normal inspection. Normal range of motion. No tenderness, EXTREMITIES: Upper extremity, findings; normal inspection. Normal range of motion. Motor strength is normal. Sensation intact. Radial pulses are normal bilaterally. Lower extremity; normal range of motion. Motor strength is normal. Sensation is intact bilaterally. No edema is noted. Pedal pulses are normal bilaterally. NEURO: The patient is alert to person, place, and time. Speech is normal. Gait is normal. Cranial nerves 2 through 12 are intact. No focal motor or sensory deficits. SKIN: Warm and dry, normal in color. PSYCH: The patient has a normal affect. MEDICATIONS: The patient was discharged on her home medications, which include, 1. ProAir two puffs q.4 hours as needed for shortness of breath or wheezing. 2. Lisinopril 40 mg p.o. daily. 3. Paroxetine 20 mg p.o. daily. 4. Norvasc 5 mg p.o. daily. 5. Coreg 6.25 mg p.o. b.i.d. 6. Lasix 40 mg p.o. b.i.d. 7. Atrovent inhaler q.6 hours as needed for shortness of breath or wheezing. 8. Metformin 500 mg p.o. b.i.d. 9. Dulera 200 two puffs b.i.d. 10. Potassium chloride 20 mEq p.o. daily. 11. Prednisone 20 mg p.o. q.a.m. 12. Aldactone 25 mg p.o. daily. ALLERGIES: NO KNOWN DRUG ALLERGIES. PATIENT CONDITION: Stable. DISPOSITION: The patient was discharged to home. REFERRALS: Dr. Sara Clemens within the next week. Dr. Madrigal within the next 2 to 3 weeks. Job ID: [id number]
== END 2018-03-04 18:11 | disposition home or self-care (01) | DRG 190 ==
LOC: ERS 08:17 → ERHOLD 09:03 → OBSVTOIN 09:03 → 2SW 09:25 → ONC 03-01 17:46 → T4-A 03-03 17:18
PROVIDERS: ADMIT Family Medicine; ATTEND Family Medicine
DX: J44.0 Chronic obstructive pulmonary disease with (acute) lower respiratory infection (principal); J96.01 Acute respiratory failure with hypoxia; J18.9 Pneumonia, unspecified organism; B19.10 Unspecified viral hepatitis B without hepatic coma; I50.30 Unspecified diastolic (congestive) heart failure; J44.1 Chronic obstructive pulmonary disease with (acute) exacerbation; E11.9 Type 2 diabetes mellitus without complications; Z79.84 Long term (current) use of oral hypoglycemic drugs; Z72.0 Tobacco use; Z79.01 Long term (current) use of anticoagulants; J84.10 Pulmonary fibrosis, unspecified; I11.0 Hypertensive heart disease with heart failure
CPT/HCPCS: 36415; 36416; 71045; 71260; 80048; 82103; 85007; 85025; 85027; 87040; 94640; 99285; G8979-GP-CI; J0456; J0696; J2920; J7050; J7506; J7620

== ENCOUNTER 2018-03-22 17:08 | Observation (INO) | payer SELFPAY ==
[2018-03-22] MEDS ORDERED: Albuterol Sulfate 2.5 mg/3 ml Neb ONE (18:02)
[2018-03-22 19:33] LABS: Troponin I 0.028 ng/mL (< 0.028)
[2018-03-22] MEDS ORDERED: Acetaminophen 325 MG TAB PO PRN (19:49)
[2018-03-22] MEDS ORDERED: Ondansetron ODT 4 MG TAB SL PRN (19:49)
[2018-03-22] MEDS ORDERED: Ondansetron PF 4 MG/2 ML Vial IVP PRN (19:49)
[2018-03-22 21:25] LABS: Troponin I 0.016 ng/mL (< 0.028)
[2018-03-22] MEDS ORDERED: Dextrose 5% in Water 1,000 ML IV PRN (22:01)
[2018-03-22] MEDS ORDERED: Dextrose 50% Abboject 50 ML SYRINGE SLOW IVP PRN (22:01)
[2018-03-23 01:09] LABS: Troponin I 0.014 ng/mL (< 0.028)
--- NOTE | 2018-03-23 03:27 | HP ---
CHIEF COMPLAINT: Shortness of breath and cough. HISTORY OF PRESENT ILLNESS: This patient is a 52-year-old female, who was just discharged from this facility about 3-1/2 weeks ago. At that time, the patient had significant COPD exacerbation and concerning for possibility of some pulmonary fibrosis. She also had some nodular cirrhosis seen on her imaging. She did have a history of alcohol abuse, but there was workup undergoing for alpha-1 antitrypsin levels. The patient was ultimately discharged with p.o. steroids. She was having substantial trouble with hyperglycemia related to her steroids, and therefore Dr. Clemens, her PCP, discontinued those. The patient reports for the last 3 days, she has had increased shortness of breath, dyspnea on exertion, orthopnea, and cough. The cough is dry and nonproductive. She has had no associated fevers or chills. She does say she feels cold all the time. The patient initially presented to Dr. Clemens's office today. Based on her symptoms, she was referred to the [facility], where she appeared to have some hypoxia. She received 20 mg of Lasix there and was transferred to this facility. In the emergency department here, the patient received nebulizer treatments with some improvement. REVIEW OF SYSTEMS: The patient reports that she has had some slight discomfort in her upper pretibial areas bilaterally. She has also had some cramping in her feet. She also reports some dark stools over the last week. All other systems were reviewed and all pertinent positives and negatives noted in the history of present illness. PAST MEDICAL HISTORY: Notable for the above-mentioned COPD with possibility of some fibrotic changes, hepatitis B, diabetes mellitus type 2, diastolic dysfunction, systolic function revealing EF of 40% to 45% on echo, history of tobacco abuse, hyperlipidemia, hypertension. SURGICAL HISTORY: Hysterectomy. SOCIAL HISTORY: The patient smoked for 15 years, history of significant alcohol use, but no longer, no history of drugs. She has a remote history of cocaine and marijuana use. She is , has 2 children. She is full code and her daughter would be her surrogate decision maker. FAMILY HISTORY: Mother had congestive heart failure, chronic kidney disease, diabetes mellitus. Father had prostate cancer and throat cancer. ALLERGIES: NONE. CURRENT MEDICATIONS: 1. Metformin 500 mg p.o. b.i.d. 2. Aldactone 25 mg daily. 3. Potassium 20 mEq daily. 4. Paroxetine 20 daily. 5. Coreg 6.25 one p.o. b.i.d. 6. Norvasc 5 mg daily. 7. Albuterol HFA 2 puffs q.4 hours p.r.n. 8. Ipratropium bromide one vial q.i.d. per neb p.r.n. 9. Lasix 40 mg b.i.d. 10. Dulera 200/5 two puffs b.i.d. 11. Lisinopril 40 mg p.o. daily. PHYSICAL EXAMINATION: VITAL SIGNS: Temperature 98.3, pulse 91, respirations 16, O2 saturation on 2 L nasal cannula, BP 117/75. GENERAL APPEARANCE: Age-appropriate female. She is awake, alert, oriented, pleasant, and cooperative. Currently, she is breathing quite comfortably with nasal cannula. She is speaking in full sentences without any difficulty. She has minimal observed cough. ENT: PERRL. No OP lesions. NECK: Supple and symmetric without lymphadenopathy, JVD, or carotid bruits. HEART: Regular rate and rhythm with occasional PVCs noted. LUNGS: Demonstrate bibasilar rales, right worse than left with fair air exchange. No wheezes noted. ABDOMEN: Soft, nontender, and nondistended. Positive bowel sounds. No masses. No organomegaly. EXTREMITIES: Warm and dry. Very slight tenderness over the pretibial bony area of both lower extremities. No cyanosis, clubbing, or edema. NEUROLOGIC: The patient moves all extremities spontaneously with no evidence of focal deficits. PSYCHIATRIC: The patient has normal affect and behavior. LABORATORY DATA: White count 4.4, hemoglobin 12.1, platelets 92. Sodium 141, potassium 4.8, chloride 106, CO2 is 23, BUN 12, creatinine 1.06, glucose 86, calcium 9.4, magnesium 2.2. Troponin 0.021. BNP 175. TSH 1.167. Flu screen is negative. Chest x-ray, extensive bilateral interstitial changes which appear to be stable, probable small pleural effusion, borderline cardiomegaly. IMPRESSION AND PLAN: 1. Acute hypoxic respiratory failure. The patient was noted to have sats in the 80s at the outside emergency department. She has responded well to nebulizer treatments thus far and appears to be doing fairly well with regards to her breathing. We will continue some steroids and nebulizer treatments. 2. The patient has a history of mild systolic dysfunction with ejection fraction of 40% to 45% and grade 1 diastolic dysfunction. She does not appear to be in decompensated heart failure at this time, although she did receive a dose of Lasix at the outside Emergency Department. 3. Iron deficiency anemia. The patient has microcytosis. She did have iron studies done in previous workup and iron levels were significantly low. She reports some dark stools this week and will need to do hemoccults and start the patient on some iron supplementation. 4. History of diabetes, which was poorly controlled when she was on steroids. We will need to continue to monitor that for the time that she is here. We will give sliding scale insulin as needed. 5. Hypertension. Continue with the Norvasc and lisinopril. 6. Palpitations. The patient appears to be having some simple premature ventricular contractions which are likely benign. We will continue to monitor on tele and checking the troponins. Job ID: [id number]
[2018-03-23 05:35] LABS: Anion Gap 13 mmol/L (10-20); BUN (Urea Nitrogen) 15 mg/dL (9.8-20.1); Calc. Creatinine Clearance 64 mL/min (70-130); Calcium 9.2 mg/dL (7.8-10.44); Carbon Dioxide 23 mmol/L (22-29); Chloride 104 mmol/L (98-107); Estimated GFR-MDRD 62; Glucose 306 mg/dL (70-105); Potassium 3.9 mmol/L (3.5-5.1); Sodium 136 mmol/L (136-145)
[2018-03-23] MEDS: HumaLOG 300 UNITS/3 ML VIAL SC PRN ×4 (05:52→21:10)
[2018-03-23 05:57] LABS: #Lymphocytes 0.7 thou/uL (1.20-3.40); #Monocytes 0.1 thou/uL (0.11-0.59); #Neutrophils 1.5 thou/uL (1.40-6.50); %Basophils 1.4 % (0.0-1.0); %Eosinophils 1.4 % (0.0-10.0); %Lymphocytes 28.6 % (21.0-51.0); %Monocytes 5.4 % (0.0-10.0); %Neutrophils 63.2 % (42.0-75.0); Anisocytosis SLIGHT = 6-15 cells (100X) (0-5/hpf); Hemoglobin 11.9 g/dL (12.0-16.0); Hypochromia SLIGHT = 6-15 cells (100X) (0-5/hpf); Large Platelets SLIGHT; MDiff Complete? YES; Mean Corpuscular Hemoglobin 22.8 pg (27.0-31.0); Mean Corpuscular Volume 67.2 fL (78.0-98.0); Microcytosis SLIGHT = 6-15 cells (100X) (0-5/hpf); PLT Morphology Comment Appears Decreased; Platelet Count 90 thou/uL (130-400); Poikilocytosis SLIGHT = 6-15 cells (100X) (0-5/hpf); Polychromasia SLIGHT = 2-3 cells (100X) (0-2/hpf); RBC Distribution Width 21.3 % (11.5-14.5); Red Blood Cell (RBC) Count 5.22 mill/uL (4.20-5.40); Schistocytes SLIGHT = 2-5 cells (100X) (0-1/hpf); Stomatocytes SLIGHT = 2-5 cells (100X) (0-1/hpf); Target Cells SLIGHT = 2-5 cells (100X) (0-1/hpf); White Blood Cell (WBC) Count 2.4 thou/uL (4.8-10.8)
[2018-03-23] MEDS: Mometasone/Formoterol 120 PUFF INHALER INH SCH ×2 (06:58→18:39)
[2018-03-23] MEDS: Lisinopril 20 MG TAB PO SCH (09:44)
[2018-03-23] MEDS: Potassium Chloride 20 MEQ TAB PO SCH (09:47)
[2018-03-23] MEDS: metFORMIN 500 MG TAB PO SCH ×2 (09:47→17:56)
[2018-03-23] MEDS: Spironolactone 25 MG TAB PO SCH (09:48)
[2018-03-23] MEDS: PARoxetine 20 MG TAB PO SCH (09:48)
[2018-03-23] MEDS: Amlodipine 5 MG TAB PO SCH (09:50)
[2018-03-23] MEDS: Ferrous Sulfate 325 MG TAB PO SCH ×2 (09:50→17:55)
[2018-03-23] MEDS: Carvedilol 6.25 MG TAB PO SCH ×2 (09:50→17:55)
[2018-03-23] MEDS: Famotidine 20 MG TAB PO SCH ×2 (09:50→19:45)
[2018-03-23] MEDS: Furosemide 40 MG TAB PO SCH ×2 (09:51→14:56)
[2018-03-23] MEDS ORDERED: Acetaminophen 325 MG TAB PO PRN (12:34)
[2018-03-23] MEDS ORDERED: Dicyclomine 20 MG TAB PO PRN (12:35)
--- NOTE | 2018-03-23 12:49 | PDOC.PN ---
- Subjective Encounter Start Date: 03/23/18 (1850) Subjective: Patient still c/o of SOB, worse with exertion -: Reports no dizziness today with ambulation -: Reports wheezing, reports intermittent abdominal cramping - Objective Resuscitation Status - Order Detail: 03/22/18 21:58 Resuscitation Status Routine Resuscitation Status: FULL: Full Resuscitation Discussed with: Patient Vital Signs & Weight: Vital Signs (12 hours) Temp Pulse Resp BP BP Pulse Ox 03/23/18 12:40 68 16 98 03/23/18 11:44 97.4 F L 59 L 16 125/72 96 03/23/18 09:50 74 131/86 03/23/18 09:44 131/86 03/23/18 09:13 98 03/23/18 07:48 97.9 F 74 20 132/93 H 96 03/23/18 06:58 70 16 98 03/23/18 06:51 70 16 98 03/23/18 04:27 97.7 F 78 16 112/63 100 Weight Weight 69.672 kg I&O: 03/22/18 03/23/18 03/24/18 06:59 06:59 06:59 Intake Total 550 Balance 550 Result Diagrams: 03/23/18 04:52 03/23/18 04:52 Additional Labs: Accuchecks 03/23/18 03/23/18 03/22/18 10:55 04:35 20:45 POC Glucose 399 H 295 H 229 H Phys Exam - Physical Examination Constitutional: NAD HEENT: PERRLA, moist MMs Neck: no nodes, no JVD Respiratory: wheezing present Wheezing noted to upper lobes, scattered rhonchi Cardiovascular: RRR, no significant murmur Gastrointestinal: soft, non-tender Musculoskeletal: no edema, pulses present Neurological: non-focal, normal sensation Lymphatic: no nodes Psychiatric: normal affect, A&O x 3 Skin: no rash, normal turgor Dx/Plan (1) COPD exacerbation Code(s): J44.1 - CHRONIC OBSTRUCTIVE PULMONARY DISEASE W (ACUTE) EXACERBATION Status: Acute (2) Congestive heart failure due to hypertension Code(s): I11.0 - HYPERTENSIVE HEART DISEASE WITH HEART FAILURE Status: Chronic Comment: Taking meds incorrectly- didn't increase lisinopril or coreg per titration instructions. States she is currently taking 40 mg q day instead of BID and coreg 3.125 mg po q day- although is unreliable historian (3) Dyspnea Code(s): R06.00 - DYSPNEA, UNSPECIFIED Status: Acute (4) Palpitations Code(s): R00.2 - PALPITATIONS Status: Chronic Comment: EKG sinus rhythm- probably due to not taking coreg over weekend - Plan cont current plan of care, respiratory therapy Will dc solu-medrol after 3 doses and switch to Prednisone 20mg daily -: Continue neb treatments -: Awaiting stool sample for occult blood, reports intermittment abd cramping -: Sliding scale insulin protocol for hyperglycemia due to steroids -: Monitor VS, labs, hopefully DC tomorrow * .
[2018-03-23 16:15] VITALS: BMI 25.5
--- NOTE | 2018-03-23 21:24 | CON ---
DATE OF CONSULTATION: HISTORY OF PRESENT ILLNESS: The patient of Dr. Madrigal's who was apparently due to see him in a few weeks presented with congestion, coughing, unresponsive to her home medication. We have been consulted regarding her pulmonary status. She has known history of COPD, alpha-1 results are pending, cirrhosis by CT. She says she is not smoking. Clearly, she has had previous history of smoking, quit smoking four years ago. She also carries a history of asthma. She denies any chills or sweats. PAST MEDICAL HISTORY: COPD, asthma, CHF, hepatitis B, diabetes, hypertension. PREVIOUS SURGERIES: Hysterectomy. SOCIAL HISTORY: Alcohol, social. Tobacco, quit four years ago. HOME MEDICATIONS: Metformin 500 twice a day, Aldactone 25, potassium, Prozac 20 twice a day, lisinopril 40, Lasix 40 twice a day, Coreg 6.25 twice a day, Norvasc 5 mg a day. REVIEW OF SYSTEMS: Otherwise, 10 point negative. PHYSICAL EXAMINATION: GENERAL: She appears to be in no acute distress. VITAL SIGNS: Saturations are 98 on 2 L, respiratory rate 16, temperature 97, blood pressure 135/72. CHEST: Basilar crackles. No wheezing. CARDIAC: Normal S1, S2. No gallops. ABDOMEN: No masses. LABORATORY DATA: White count is 2.4, H and H is 11 is 35, platelet count is 90,000, thrombocytopenic. Lytes are normal. Creatinine is unremarkable. X-ray shows CHF findings. IMPRESSION: Congestive heart failure, chronic obstructive pulmonary disease, asthma, former tobacco abuse. From a pulmonary standpoint of view, she is on adequate medication. Continue neb treatments, supportive care whenever okay with primary care physician to follow up with Dr. Madrigal. This is a 70-minute clinic consultation note with 50% in direct patient care. Job ID: [id number]
[2018-03-24] MEDS: Mometasone/Formoterol 120 PUFF INHALER INH SCH (07:15)
[2018-03-24] MEDS ORDERED: predniSONE 20 MG TAB PO SCH (08:00)
[2018-03-24] MEDS: Carvedilol 6.25 MG TAB PO SCH (09:01)
[2018-03-24] MEDS: Ferrous Sulfate 325 MG TAB PO SCH (09:01)
[2018-03-24] MEDS: Lisinopril 20 MG TAB PO SCH (09:02)
[2018-03-24] MEDS: Furosemide 40 MG TAB PO SCH (09:02)
[2018-03-24] MEDS: Potassium Chloride 20 MEQ TAB PO SCH (09:02)
[2018-03-24] MEDS: metFORMIN 500 MG TAB PO SCH (09:02)
[2018-03-24] MEDS: Famotidine 20 MG TAB PO SCH (09:02)
[2018-03-24] MEDS: Amlodipine 5 MG TAB PO SCH (09:02)
[2018-03-24] MEDS: Spironolactone 25 MG TAB PO SCH (09:02)
[2018-03-24] MEDS: PARoxetine 20 MG TAB PO SCH (09:03)
[2018-03-24 12:10] VITALS: BP 100/55; TEMP 98.7
--- NOTE | 2018-03-24 13:28 | PRG ---
DATE OF SERVICE: 03/24/2018 SUBJECTIVE: This morning, she says she is better, less shortness of breath and cough. OBJECTIVE: VITAL SIGNS: Sats are 96 on room air, respirations 16, temperature 98, pulse 72, and blood pressure is 112/76. CHEST: Decreased breath sounds. No wheezing. CARDIAC: Normal S1 and S2. No gallops. ABDOMEN: No masses. IMPRESSION: 1. Congestive heart failure. 2. Chronic obstructive pulmonary disease. 3. Bronchitis, much improved. DISPOSITION: Probably could go home at any time on present treatment. Follow up with Dr. Madrigal. Job ID: [id number]
--- NOTE | 2018-03-25 00:36 | DIS ---
DATE OF ADMISSION: 03/22/2018 DATE OF DISCHARGE: 03/24/2018 PRIMARY CARE PHYSICIAN: Sara Clemens DO CONSULTANTS: Dr. Mooney with Pulmonology. PROCEDURES: The patient had a chest x-ray in [place] on 03/22/2018, which showed extensive bilateral interstitial changes which appear stable. Probable small pleural effusions. Borderline cardiomegaly. No significant new process. HOSPITAL COURSE: Ms. Collazo is very pleasant 52-year-old female, who had recently been discharged from this facility about 3-1/2 weeks ago. At that time, she had significant COPD exacerbation and concerning for possibility of some pulmonary fibrosis. Also nodular cirrhosis seen on her imaging. She did have a history of alcohol abuse. The patient was ultimately discharged at that time with p.o. steroids. She was having substantial trouble with her hypoglycemia related to her steroids and therefore Dr. Clemens, her PCP, discontinued this. The patient reports over the last 3 days, she has had increased shortness of breath, dyspnea on exertion, orthopnea, and cough. Cough is dry and nonproductive. She has had no associated fevers or chills. The patient reports that she initially had gone to see her PCP. Based on her symptoms, she was referred to the [facility], where she appeared to have some hypoxia, received 20 mg of Lasix and was transferred to the [facility] in [place], where she was subsequently admitted. During her ER visit in this facility, she received some nebulizer treatments, which she reports gave her some improvement. During her admission here, she was given DuoNeb q.6 hours, Lasix b.i.d., her inhalers and Pulmonary was consulted, who agreed with the plan. The patient subsequently started feeling better. Vital signs remained stable. Laboratory remained stable and the patient was subsequently discharged to home with Pulmonology agreeing to plan. The patient's case also discussed with Dr. Lopez and he agreed with the plan to discharge to home. DISCHARGE DIAGNOSES: 1. Acute hypoxic respiratory failure, improved. 2. Mild systolic dysfunction. 3. Iron-deficiency anemia. 4. Diabetes mellitus. 5. Hypertension. REVIEW OF SYSTEMS: The patient was examined on the morning of discharge. The patient reports that her breathing has improved. She denies any palpitations, chest pain, any shortness of breath, any headache, fever, chills, abdominal pain, nausea, vomiting, or diarrhea. All other systems are reviewed and are negative unless mentioned in the hospital course. PHYSICAL EXAMINATION: VITAL SIGNS: Temperature is 98.5, respiratory rate is 16, pulse is 72, blood pressure is 112/76, and pulse ox is 96% on room air. CONSTITUTIONAL: The patient is in no distress. The patient appears pain free, is oriented to person, place, and time. HEENT: Head is atraumatic and normocephalic. Eyes; eyelids are normal to inspection. Pupils are equally round and reactive to light. Extraocular muscles are intact. ENT; mouth exam is normal. Mucous membranes are moist. NECK: Normal range of motion. Trachea is midline. RESPIRATORY AND CHEST: Clear bilaterally. CARDIOVASCULAR: Heart rate is regular rate and rhythm. Heart sounds are normal. ABDOMEN: Female. Nontender. Bowel sounds are heard. BACK: Normal inspection. Normal range of motion. EXTREMITIES: Upper extremities; normal inspection. Normal range of motion. Motor strength is normal. Sensation is intact. Radial pulses are normal bilaterally. Lower extremity; inspection is normal, range of motion is normal, motor strength is normal. Sensation is intact. Pedal pulses are normal bilaterally. No edema. NEUROLOGIC: The patient is alert to person, place, and time. Speech is normal. Gait is normal. Cranial nerves II through XII are intact. No focal, motor, or sensory deficits are noted. SKIN: Warm, dry, and normal in color. PSYCHIATRIC: The patient has a normal affect. MEDICATIONS: The patient will be discharged to home on her home medications, which include; 1. ProAir HFA 2 puffs q.4 hours as needed for shortness of breath or wheezing. 2. Lisinopril 40 mg p.o. daily. 3. Paroxetine 20 mg p.o. daily. 4. Norvasc 5 mg p.o. daily. 5. Coreg 6.25 mg p.o. b.i.d. 6. Lasix 40 mg p.o. b.i.d. 7. Metformin 500 mg p.o. b.i.d. 8. DuoNeb q.6 hours as needed for wheezing or shortness of breath. 9. Dulera 200 two puffs b.i.d. 10. Potassium chloride 20 mEq p.o. daily. 11. Spironolactone 25 mg p.o. daily. 12. Prednisone 20 mg p.o. daily q.a.m. x4 days. ALLERGIES: NONE. CONDITION ON DISCHARGE: The patient's condition is stable. The patient will be discharged to home. FOLLOWUP: The patient should follow up with Dr. Clemens within the next week. Follow up with Dr. Madrigal within the next 2 weeks. Job ID: [id number]
== END 2018-03-24 13:55 | disposition home or self-care (01) ==
LOC: ERS 17:08 → 2SW 18:08
PROVIDERS: ADMIT Family Medicine; ATTEND Family Medicine
DX: J96.01 Acute respiratory failure with hypoxia (principal); E11.9 Type 2 diabetes mellitus without complications; E78.5 Hyperlipidemia, unspecified; D50.9 Iron deficiency anemia, unspecified; I11.0 Hypertensive heart disease with heart failure; I50.9 Heart failure, unspecified; J44.9 Chronic obstructive pulmonary disease, unspecified; Z79.84 Long term (current) use of oral hypoglycemic drugs; Z79.899 Other long term (current) drug therapy; Z87.891 Personal history of nicotine dependence
CPT/HCPCS: 36415; 36416; 80048; 82274; 84484; 85025; 90471; 90686; 94640; 96374; 96376; G0008; G0378; J2920; J7506; J7611; J7620

== ENCOUNTER 2019-10-08 14:05 | Inpatient (IN) | payer BC, OTHER ==
[2019-10-08 15:20] LABS: Hemoglobin 12.5 g/dL (12.0-16.0); Mean Corpuscular Hemoglobin 26.4 pg (27.0-31.0); Mean Corpuscular Volume 77.7 fL (78.0-98.0); RBC Distribution Width 16.1 % (11.5-14.5); Red Blood Cell (RBC) Count 4.74 mill/uL (4.20-5.40)
[2019-10-08 15:51] LABS: Band 4 % (5-11); Lymphocytes 9 % (21-51); MDiff Complete? YES; Mean Platelet Volume 10.4 fL (7.4-10.4); Monocytes 2 % (0-10); Neutrophil 79 % (42-75); Platelet Count 85 thou/uL (130-400); Platelet Morphology Comment Appears Decreased; Polychromasia SLIGHT = 2-3 cells (100X) (0-2/hpf); Reactive Lymphocytes 6 % (0-10); Target Cells MODERATE= 6-15 cells (100X) (0-1/hpf)
--- NOTE | 2019-10-08 15:54 | RAD ---
PORTABLE CHEST ONE VIEW: 10/08/19 at 2:18 p.m. HISTORY: Cough, shortness of breath, hypoxia on room air. COMPARISON: 03/22/18. FINDINGS/IMPRESSION: The heart size is normal. The aorta is tortuous. Chronic interstitial changes are again seen bilatera lly. No lobar consolidation, pneumothoraces, or large effusions are identified. Mild superimposed per ipheral opacities may represent superimposed viral infection. POS: [facility]
[2019-10-08 15:58] LABS: ALT (SGPT) 16 U/L (8-55); Albumin 3.8 g/dL (3.5-5.0); Alkaline Phosphatase 122 U/L (40-110); Anion Gap 14 mmol/L (10-20); BUN (Urea Nitrogen) 12 mg/dL (9.8-20.1); Calc. Creatinine Clearance 0 mL/min (70-130); Calcium 8.8 mg/dL (7.8-10.44); Carbon Dioxide 20 mmol/L (22-29); Chloride 108 mmol/L (98-107); Estimated GFR-MDRD 78; Globulin 3.7 g/dL (2.4-3.5); Glucose 159 mg/dL (70-105); Potassium 4.5 mmol/L (3.5-5.1); Protein, Total 7.5 g/dL (6.0-8.3); Sodium 137 mmol/L (136-145)
[2019-10-08] MEDS ORDERED: Nitroglycerin 2% Ointment 1 INCH/1 GM Packet ONE (16:09)
[2019-10-08] MEDS ORDERED: Nitroglycerin 0.4 MG TAB 1 EACH ONE (16:09)
[2019-10-08] MEDS ORDERED: Furosemide 40 MG/4 ML VIAL ONE (16:09)
[2019-10-08 17:12] LABS: AST (SGOT) 33 U/L (5-34)
[2019-10-08] MEDS ORDERED: Dextrose 5% in Water 1,000 ML IV PRN (18:13)
[2019-10-08] MEDS ORDERED: Ondansetron ODT 4 MG TAB PO PRN (18:13)
[2019-10-08] MEDS ORDERED: Dextrose 50% Abboject 50 ML SYRINGE SLOW IVP PRN (18:13)
[2019-10-08] MEDS ORDERED: HumaLOG 300 UNITS/3 ML VIAL SC PRN ×2 (18:13)
[2019-10-08] MEDS ORDERED: HYDROcodone/Acetaminophen 5/325 mg Tablet PO PRN (18:13)
[2019-10-08] MEDS ORDERED: Acetaminophen 325 MG TAB PO PRN (18:13)
[2019-10-08 19:11] LABS: Troponin I 0.037 ng/mL (< 0.028)
[2019-10-08 21:46] VITALS: BMI 23.8
[2019-10-08] MEDS: Multivitamins, Adult 10 ML, Folic Acid 1 MG, Thiamine HCl 100 MG in Dextrose 5 %-0.45 %... IV SCH (21:53)
[2019-10-08 22:15] LABS: Troponin I 0.033 ng/mL (< 0.028)
[2019-10-08] MEDS: cefTRIAXone\\ROCEPHIN 1 GM in Sodium Chloride 0.9% 100 ML IVPB SCH (22:15)
[2019-10-08] MEDS: Nitroglycerin 2% Ointment 1 INCH/1 GM Packet TOP SCH (22:15)
[2019-10-08] MEDS: Zolpidem Tartrate 5 MG TAB PO PRN (22:18)
[2019-10-09] MEDS: Nitroglycerin 2% Ointment 1 INCH/1 GM Packet TOP SCH (04:11)
[2019-10-09 05:21] LABS: Anion Gap 15 mmol/L (10-20); BUN (Urea Nitrogen) 21 mg/dL (9.8-20.1); Calc. Creatinine Clearance 65 mL/min (70-130); Calcium 8.5 mg/dL (7.8-10.44); Carbon Dioxide 22 mmol/L (22-29); Chloride 106 mmol/L (98-107); Estimated GFR-MDRD 68; Glucose 126 mg/dL (70-105); Potassium 3.6 mmol/L (3.5-5.1); Sodium 139 mmol/L (136-145)
--- NOTE | 2019-10-09 05:32 | HP ---
PRIMARY CARE PROVIDER: Svetlana Kerr MD HISTORY OF PRESENT ILLNESS: The patient is a transfer for possible COVID infection. The patient reports that she has had cough, shortness of breath, and chills for 3 days. She denies fever prior to admission. She was seen and evaluated in the emergency room. A COVID test was negative; however, her chest x-ray was positive for diffuse pneumonia. She is being admitted. PAST MEDICAL HISTORY: Pertinent for diabetes mellitus type 2, hepatitis B, congestive heart failure, chronic obstructive pulmonary disease, dyslipidemia, and hypertension. PAST SURGICAL HISTORY: Hysterectomy. ALLERGIES: NO KNOWN DRUG ALLERGIES. CURRENT MEDICATIONS: 1. Metformin 500 mg twice a day. 2. Coreg 6.25 mg twice a day. 3. Lasix 40 mg 2 times a day. 4. Spironolactone 25 mg a day. 5. Lisinopril 40 mg a day. 6. Potassium chloride 20 mEq a day. 7. Paxil 20 mg a day. 8. DuoNeb 0.2 mg/mL 1 unit every 6 hours p.r.n. 9. ProAir HFA 2 puffs q.4 hours p.r.n. 10. Amlodipine 5 mg a day. 11. Xifaxan 550 mg twice a day. 12. Entecavir 1 mg daily. 13. Eliquis 2.5 mg twice a day. 14. Flecainide 50 mg twice a day. 15. Imdur 30 mg a day. 16. Lipitor 40 mg a day. FAMILY HISTORY: Son with diabetes. Mother with diabetes and coronary artery disease. SOCIAL HISTORY: No tobacco. Drinks 8 beers a day. Full code status. No illicit drugs. She did smoke in the distant past. PHYSICAL EXAMINATION: GENERAL: The patient is alert, cooperative, pleasant lady. VITAL SIGNS: Blood pressures in the emergency room ranged from 174/110 to 149/99, pulse is reportedly consistently in the 70s and 80s, temperature was 98.6 to 98.9, O2 saturations were adequate on room air at rest, she desaturated however with activity. HEENT: Examination of her head, eyes, ears, nose, and throat revealed pupils equal, round, and reactive. Extraocular movements are intact. Tympanic membranes are clear. Sclerae are white. Mouth is wet. NECK: Supple without jugular venous distention, adenopathy, or thyromegaly. CHEST: Reveals diffuse rales both posterior chest and lateral, but most pronounced on the left. HEART: Had a regular rate and rhythm with frequent burst of either SVT or atrial fibrillation. The heart sounds were normal and as I mentioned, the heart rhythm ranged from regular to irregular. There were no murmurs. ABDOMEN: Soft, bowel sounds are normal. There is no hepatosplenomegaly. No masses. No rebound. No bruits. EXTREMITIES: Reveal no cyanosis, clubbing, or edema. PULSES: Carotid, radial, femoral, and dorsalis pedis pulses are intact. SKIN: Warm and dry without bruises or rash. HEME/LYMPH: No tender or swollen lymph nodes in axilla, inguinal, and cervical area. NEUROLOGIC: Cranial nerves 2 through 12 are intact. Deep tendon reflexes are symmetric. IMAGING DATA: Chest x-ray, personally reviewed, revealed bilateral infiltrates, most consistent with atypical or viral infection. EKG, sinus rhythm with frequent episodes of SVT. No acute ST-T abnormality. LABORATORY DATA: White count 4.0, hemoglobin 12.5, platelet count 85,000. Comprehensive metabolic profile; blood sugar 159, chloride 108, CO2 of 20, otherwise normal. BNP 861. Troponin 0.017. Serology was negative for COVID. ADMITTING DIAGNOSES: 1. Pneumonia. 2. Diabetes mellitus type 2. 3. Hepatitis B. 4. History of congestive heart failure. 5. Chronic obstructive pulmonary disease. 6. Hypertension. 7. Dyslipidemia. 8. Most likely atrial fibrillation. Blood cultures have been drawn. The patient will be given O2 p.r.n. Accu-Cheks sliding scale will be monitored. Levaquin and Rocephin will be given IV. Home medicines will be continued as appropriate. Her liver function tests are normal. However, I suspect her low white count and platelet count could be related to hypersplenism and liver disease. Job ID: [id number]
[2019-10-09 06:36] LABS: Hemoglobin 11.8 g/dL (12.0-16.0); Mean Corpuscular HGB CONC 33.2 g/dL (32.0-36.0); Mean Corpuscular Hemoglobin 25.6 pg (27.0-31.0); Mean Corpuscular Volume 77.2 fL (78.0-98.0); Mean Platelet Volume 8.4 fL (7.4-10.4); Platelet Count 96 thou/uL (130-400); RBC Distribution Width 16.3 % (11.5-14.5); Red Blood Cell (RBC) Count 4.62 mill/uL (4.20-5.40); White Blood Cell (WBC) Count 6.2 thou/uL (4.8-10.8)
[2019-10-09 06:37] LABS: Anisocytosis SLIGHT = 6-15 cells (100X) (0-5/hpf); Band 9 % (5-11); Lymphocytes 15 % (21-51); MDiff Complete? YES; Monocytes 16 % (0-10); Neutrophil 60 % (42-75); Platelet Morphology Comment Appears Decreased; Target Cells SLIGHT = 2-5 cells (100X) (0-1/hpf)
[2019-10-09] MEDS ORDERED: Enoxaparin Sodium 40 MG/0.4 ML SYRINGE SC SCH (09:00)
--- NOTE | 2019-10-09 14:43 | PDOC.HOSPP ---
- Subjective Encounter Date: 10/09/19 Encounter Time: 14:41 Subjective: mild cough, sweat last nite, OW no symptons - Objective Vital Signs & Weight: Vital Signs (12 hours) Temp Pulse Resp BP Pulse Ox 10/09/19 08:00 85 18 161/87 H 95 10/09/19 03:28 98.0 F 75 17 138/95 H 93 L Weight Weight 143 lb 9.6 oz I&O: 10/08/19 10/09/19 10/10/19 06:59 06:59 06:59 Intake Total 580 Balance 580 Result Diagrams: 10/09/19 04:06 10/09/19 04:06 Additional Labs: Accuchecks 10/09/19 10/09/19 10:57 06:52 POC Glucose 220 H 195 H Hospitalist ROS - Medication Medications: Active Medications Generic Name Dose Route Start Last Admin Trade Name Freq PRN Reason Stop Dose Admin Enoxaparin Sodium 40 mg 10/09/19 09:00 10/09/19 12:14 Lovenox SC Not Given 0900 [facility] Ceftriaxone Sodium 1 gm/ 100 mls @ 200 mls/hr 10/08/19 20:00 10/08/19 22:15 Sodium Chloride IVPB 100 mls Q24HR TALISHA Administration Levofloxacin 750 mg/ Device 150 mls @ 100 mls/hr 10/08/19 18:30 10/08/19 21: 52 IVPB Not Given Q24HR [facility] Multivitamins 10 ml/ Folic 1,011.2 mls @ 250 mls/hr 10/08/19 21:00 10/08/19 21:53 Acid 1 mg/ Thiamine HCl 100 mg IV Not Given / Dextrose/Sodium Chloride Q24HR [facility] Insulin Human Lispro 0 units 10/08/19 18:13 10/09/19 12:22 Humalog SC 4 unit .MODERATE SLIDING SC PRN Administration Moderate Correctional Scale Sodium Chloride 10 ml 10/08/19 21:00 10/09/19 08:32 Flush - Normal Saline IVF 10 ml Q12HR TALISHA Administration Zolpidem Tartrate 5 mg 10/08/19 18:13 10/08/19 22:18 Ambien PO 5 mg HSPRN PRN Administration Insomnia - Exam General Appearance: awake alert Neck: no JVD Heart: RRR, no murmur Respiratory: CTAB Gastrointestinal: soft, normal bowel sounds Extremities: no edema Hosp A/P (1) Hepatitis B Status: Acute (2) COPD exacerbation Code(s): J44.1 - CHRONIC OBSTRUCTIVE PULMONARY DISEASE W (ACUTE) EXACERBATION Status: Acute (3) Pneumonia Code(s): J18.9 - PNEUMONIA, UNSPECIFIED ORGANISM Status: Acute Qualifiers: Pneumonia type: due to unspecified organism Laterality: bilateral Lung location: unspecified part of lung Qualified Code(s): J18.9 - Pneumonia, unspecified organism (4) Diabetes mellitus Code(s): E11.9 - TYPE 2 DIABETES MELLITUS WITHOUT COMPLICATIONS Status: Chronic Qualifiers: Diabetes mellitus type: type 2 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
[2019-10-09] MEDS ORDERED: Non-Formulary Item 1 EACH (Albuterol Sulfate [Proair Hfa] 2 PUFF) INH PRN (14:44)
[2019-10-09] MEDS: metFORMIN 500 MG TAB PO SCH (17:41)
[2019-10-09] MEDS: Mometasone 200 MCG/Formoterol 5 MCG 120 PUFF INHALER INH SCH (18:35)
[2019-10-09] MEDS: Carvedilol 6.25 MG TAB PO SCH (19:40)
[2019-10-09] MEDS: Apixaban 2.5 MG TAB PO SCH (19:40)
[2019-10-09] MEDS: Flecainide 50 MG TAB PO SCH (19:40)
[2019-10-09] MEDS: cefTRIAXone\\ROCEPHIN 1 GM in Sodium Chloride 0.9% 100 ML IVPB SCH (19:41)
[2019-10-09] MEDS: Multivitamins, Adult 10 ML, Folic Acid 1 MG, Thiamine HCl 100 MG in Dextrose 5 %-0.45 %... IV SCH (19:41)
[2019-10-09] MEDS: Rifaximin 550 MG TAB PO SCH (19:41)
[2019-10-09] MEDS ORDERED: Furosemide 80 MG TAB PO SCH (21:00)
[2019-10-09] MEDS: Zolpidem Tartrate 5 MG TAB PO PRN (22:56)
[2019-10-10 04:36] LABS: Anion Gap 11 mmol/L (10-20); BUN (Urea Nitrogen) 16 mg/dL (9.8-20.1); Calc. Creatinine Clearance 66 mL/min (70-130); Carbon Dioxide 24 mmol/L (22-29); Chloride 107 mmol/L (98-107); Estimated GFR-MDRD 70; Glucose 116 mg/dL (70-105); Potassium 3.7 mmol/L (3.5-5.1); Sodium 138 mmol/L (136-145)
[2019-10-10 04:39] LABS: Band 73 % (5-11); Eosinophils 7 % (0-10); Hemoglobin 11.2 g/dL (12.0-16.0); Hypochromia SLIGHT = 6-15 cells (100X) (0-5/hpf); MDiff Complete? YES; Mean Corpuscular HGB CONC 34.2 g/dL (32.0-36.0); Mean Corpuscular Hemoglobin 26.5 pg (27.0-31.0); Mean Corpuscular Volume 77.5 fL (78.0-98.0); Myelocyte 3 % (0-0); Platelet Count 76 thou/uL (130-400); Platelet Morphology Comment Appears Decreased; RBC Distribution Width 16.2 % (11.5-14.5); Reactive Lymphocytes 17 % (0-10); White Blood Cell (WBC) Count 3.2 thou/uL (4.8-10.8)
[2019-10-10] MEDS: Furosemide 80 MG TAB PO SCH ×2 (05:52→13:12)
[2019-10-10] MEDS: Mometasone 200 MCG/Formoterol 5 MCG 120 PUFF INHALER INH SCH ×3 (07:13→20:06)
[2019-10-10] MEDS: metFORMIN 500 MG TAB PO SCH ×2 (08:12→17:02)
[2019-10-10] MEDS: Apixaban 2.5 MG TAB PO SCH ×2 (08:12→20:14)
[2019-10-10] MEDS: Carvedilol 6.25 MG TAB PO SCH ×2 (08:12→20:06)
[2019-10-10] MEDS: Atorvastatin Calcium 40 MG TAB PO SCH (08:12)
[2019-10-10] MEDS: Rifaximin 550 MG TAB PO SCH ×2 (08:13→20:06)
[2019-10-10] MEDS: Lisinopril 10 MG TAB PO SCH (08:13)
[2019-10-10] MEDS: Potassium Chloride 20 MEQ TAB PO SCH (08:13)
[2019-10-10] MEDS: Flecainide 50 MG TAB PO SCH ×2 (08:13→20:06)
[2019-10-10] MEDS: PARoxetine 20 MG TAB PO SCH (08:13)
[2019-10-10] MEDS: Spironolactone 25 MG TAB PO SCH (08:13)
--- NOTE | 2019-10-10 13:55 | PDOC.HOSPP ---
- Subjective Encounter Date: 10/10/19 Encounter Time: 12:45 Subjective: pt up in bed feels sob and has a cough. - Objective Vital Signs & Weight: Vital Signs (12 hours) Temp Pulse Resp BP BP Pulse Ox 10/10/19 13:00 98.3 F 76 18 125/83 94 L 10/10/19 08:26 95 10/10/19 08:13 142/74 H 10/10/19 08:12 142/74 H 10/10/19 08:10 98.2 F 77 20 142/74 H 95 10/10/19 07:07 102 H 18 10/10/19 03:45 98.7 F 79 18 135/70 95 Weight Weight 145 lb I&O: 10/09/19 10/10/19 10/11/19 06:59 06:59 06:59 Intake Total 580 2340 240 Balance 580 2340 240 Result Diagrams: 10/10/19 04:02 10/10/19 04:02 Additional Labs: Accuchecks 10/10/19 10/09/19 10/09/19 06:21 21:25 17:22 POC Glucose 115 H 117 H 112 H Hospitalist ROS - Review of Systems Respiratory: reports: shortness of breath Cardiovascular: denies: chest pain, palpitations, orthopnea, paroxysmal noc. dyspnea, edema, light headedness, other Gastrointestinal: denies: nausea, vomiting, abdominal pain, diarrhea, constipation, melena, hematochezia, other Genitourinary: denies: dysuria, frequency, incontinence, hematuria, retention, other - Medication Medications: Active Medications Generic Name Dose Route Start Last Admin Trade Name Heathq PRN Reason Stop Dose Admin Apixaban 2.5 mg 10/09/19 21:00 10/10/19 08:12 Eliquis PO 2.5 mg BID TALISHA Administration Atorvastatin Calcium 40 mg 10/10/19 09:00 10/10/19 08:12 Lipitor PO 40 mg DAILY TALISHA Administration Carvedilol 12.5 mg 10/09/19 21:00 10/10/19 08:12 Coreg PO 12.5 mg BID TALISHA Administration Flecainide Acetate 50 mg 10/09/19 21:00 10/10/19 08:13 Tambocor PO 50 mg BID TALISHA Administration Furosemide 80 mg 10/10/19 06:00 10/10/19 13:12 Lasix PO 80 mg 0600,1400 TALISHA Administration Levofloxacin 750 mg/ Device 150 mls @ 100 mls/hr 10/08/19 18:30 10/09/19 17: 41 IVPB 150 mls Q24HR TALISHA Administration Multivitamins 10 ml/ Folic 1,011.2 mls @ 250 mls/hr 10/08/19 21:00 10/09/19 19:41 Acid 1 mg/ Thiamine HCl 100 mg IV Not Given / Dextrose/Sodium Chloride Q24HR TALISHA Insulin Human Lispro 0 units 10/08/19 18:13 10/09/19 12:22 Humalog SC 4 unit .MODERATE SLIDING SC PRN Administration Moderate Correctional Scale Isosorbide Mononitrate 30 mg 10/10/19 09:00 10/10/19 08:13 Imdur Er PO 30 mg DAILY TALISHA Administration Lisinopril 10 mg 10/10/19 09:00 10/10/19 08:13 Zestril PO 10 mg DAILY TALISHA Administration Metformin HCl 500 mg 10/09/19 17:00 10/10/19 08:12 Glucophage PO 500 mg BID-WM TALISHA Administration Mometasone Furoate/Formoterol Fumar 2 puff 10/09/19 18:30 10/10/19 07:13 Dulera 200 Mcg/5 Mcg Inhaler INH 2 puff BID-RT TALISHA Administration Paroxetine HCl 20 mg 10/10/19 09:00 10/10/19 08:13 Paxil PO 20 mg DAILY TALISHA Administration Potassium Chloride 20 meq 10/10/19 09:00 10/10/19 08:13 K-Dur PO 20 meq DAILY TALISHA Administration Rifaximin 550 mg 10/09/19 21:00 10/10/19 08:13 Xifaxan PO 550 mg BID TALISHA Administration Sodium Chloride 10 ml 10/08/19 21:00 10/10/19 08:14 Flush - Normal Saline IVF 10 ml Q12HR TALISHA Administration Spironolactone 25 mg 10/10/19 09:00 10/10/19 08:13 Aldactone PO 25 mg DAILY TALISHA Administration Zolpidem Tartrate 5 mg 10/08/19 18:13 10/09/19 22:56 Ambien PO 5 mg HSPRN PRN Administration Insomnia - Exam Neck: negative: supple, symmetric, no JVD, no thyromegaly, no lymphadenopathy, no carotid bruit, JVD Heart: negative: RRR, no murmur, no gallops, no rubs, normal peripheral pulses, irregular, diminshed peripheral pulses, murmur present, II/IV, III/IV Respiratory: rhonchi, wheezes Gastrointestinal: negative: soft, non-tender, non-distended, normal bowel sounds , no palpable masses, no hepatomegaly, no splenomegaly, no bruit, no guarding, no rigidity, tender to palpation, distended, diminished bowl sounds, voluntary guarding Hosp A/P (1) Dyspnea Code(s): R06.00 - DYSPNEA, UNSPECIFIED Status: Acute (2) Cirrhosis Code(s): K74.60 - UNSPECIFIED CIRRHOSIS OF LIVER Status: Acute (3) Pulmonary fibrosis Code(s): J84.10 - PULMONARY FIBROSIS, UNSPECIFIED Status: Acute (4) Diabetes mellitus Code(s): E11.9 - TYPE 2 DIABETES MELLITUS WITHOUT COMPLICATIONS Status: Chronic Qualifiers: Diabetes mellitus type: type 2 Diabetes mellitus chcf insulin use: without chcf use Diabetes mellitus complication status: without complication Qualified Code(s): E11.9 - Type 2 diabetes mellitus without complications - Plan sob could be secondary to covid vs exab of IPF pt was exposed to her daughter who has coivd. her initial test was negative but i have retested her given her symptoms. chart reviewed she has pulmonary fibrosis and i do not think she follows with pulmonary. will continue steroids for now. i will hold on the duoneb until she is negative. she also has cirrhosis on ct findings most likely due to hep b. Not sure why she is on eliquis. will continue Levaquin but stop ceftriaxone.
[2019-10-10] MEDS: Multivitamins, Adult 10 ML, Folic Acid 1 MG, Thiamine HCl 100 MG in Dextrose 5 %-0.45 %... IV SCH (20:14)
[2019-10-10] MEDS: Zolpidem Tartrate 5 MG TAB PO PRN (20:25)
[2019-10-11] MEDS: Furosemide 80 MG TAB PO SCH ×2 (04:47→13:40)
[2019-10-11] MEDS ORDERED: Iron, Sodium Ferric Gluconate 125 MG in Sodium Chloride 0.9% 100 ML IVPB SCH (07:00)
[2019-10-11] MEDS: Mometasone 200 MCG/Formoterol 5 MCG 120 PUFF INHALER INH SCH ×2 (07:29→16:27)
[2019-10-11] MEDS: Apixaban 2.5 MG TAB PO SCH ×2 (07:30→21:19)
[2019-10-11] MEDS: Carvedilol 6.25 MG TAB PO SCH ×2 (07:30→21:18)
[2019-10-11] MEDS: metFORMIN 500 MG TAB PO SCH ×2 (07:30→16:27)
[2019-10-11] MEDS: Atorvastatin Calcium 40 MG TAB PO SCH (07:30)
[2019-10-11] MEDS: PARoxetine 20 MG TAB PO SCH (07:31)
[2019-10-11] MEDS: Lisinopril 10 MG TAB PO SCH (07:31)
[2019-10-11] MEDS: Potassium Chloride 20 MEQ TAB PO SCH (07:31)
[2019-10-11] MEDS: Flecainide 50 MG TAB PO SCH ×2 (07:31→21:19)
[2019-10-11] MEDS: Rifaximin 550 MG TAB PO SCH ×2 (07:32→21:19)
[2019-10-11] MEDS: Spironolactone 25 MG TAB PO SCH (07:32)
--- NOTE | 2019-10-11 17:14 | PDOC.HOSPP ---
- Subjective Encounter Date: 10/11/19 Encounter Time: 11:45 Subjective: pt up in bed feels well. - Objective Vital Signs & Weight: Vital Signs (12 hours) Temp Pulse Resp BP Pulse Ox 10/11/19 16:11 97.7 F 71 22 H 108/68 94 L 10/11/19 12:07 98.1 F 80 22 H 108/72 92 L 10/11/19 08:24 95 10/11/19 07:52 97.9 F 78 20 116/78 95 Weight Weight 146 lb 1.6 oz I&O: 10/10/19 10/11/19 10/12/19 06:59 06:59 06:59 Intake Total 2340 898 860 Output Total 2850 1500 Balance 7563 -9111 -277 Result Diagrams: 10/10/19 04:02 10/10/19 04:02 Additional Labs: Accuchecks 10/11/19 10/10/19 10/10/19 04:54 20:24 17:12 POC Glucose 112 H 115 H 112 H 10/10/19 12:38 POC Glucose 95 Hospitalist ROS - Review of Systems Cardiovascular: denies: chest pain, palpitations, orthopnea, paroxysmal noc. dyspnea, edema, light headedness, other Gastrointestinal: denies: nausea, vomiting, abdominal pain, diarrhea, constipation, melena, hematochezia, other - Medication Medications: Active Medications Generic Name Dose Route Start Last Admin Trade Name Freq PRN Reason Stop Dose Admin Apixaban 2.5 mg 10/09/19 21:00 10/11/19 07:30 Eliquis PO 2.5 mg BID TALISHA Administration Atorvastatin Calcium 40 mg 10/10/19 09:00 10/11/19 07:30 Lipitor PO 40 mg DAILY TALISHA Administration Carvedilol 12.5 mg 10/09/19 21:00 10/11/19 07:30 Coreg PO 12.5 mg BID TALISHA Administration Flecainide Acetate 50 mg 10/09/19 21:00 10/11/19 07:31 Tambocor PO 50 mg BID TALISHA Administration Furosemide 80 mg 10/10/19 06:00 10/11/19 13:40 Lasix PO 80 mg 0600,1400 TALISHA Administration Insulin Human Lispro 0 units 10/08/19 18:13 10/09/19 12:22 Humalog SC 4 unit .MODERATE SLIDING SC PRN Administration Moderate Correctional Scale Isosorbide Mononitrate 30 mg 10/10/19 09:00 10/11/19 07:31 Imdur Er PO 30 mg DAILY TALISHA Administration Lisinopril 10 mg 10/10/19 09:00 10/11/19 07:31 Zestril PO 10 mg DAILY TALISHA Administration Metformin HCl 500 mg 10/09/19 17:00 10/11/19 16:27 Glucophage PO 500 mg BID-WM TALISHA Administration Mometasone Furoate/Formoterol Fumar 2 puff 10/09/19 18:30 10/11/19 16:27 Dulera 200 Mcg/5 Mcg Inhaler INH 2 puff BID-RT TALISHA Administration Paroxetine HCl 20 mg 10/10/19 09:00 10/11/19 07:31 Paxil PO 20 mg DAILY TALISHA Administration Potassium Chloride 20 meq 10/10/19 09:00 10/11/19 07:31 K-Dur PO 20 meq DAILY TALISHA Administration Rifaximin 550 mg 10/09/19 21:00 10/11/19 07:32 Xifaxan PO 550 mg BID TALISHA Administration Sodium Chloride 10 ml 10/08/19 21:00 10/11/19 07:32 Flush - Normal Saline IVF 10 ml Q12HR TALISHA Administration Sodium Chloride 10 ml 10/08/19 18:27 10/10/19 17:01 Flush - Normal Saline IVF 10 ml PRN PRN Administration Saline Flush Spironolactone 25 mg 10/10/19 09:00 10/11/19 07:32 Aldactone PO 25 mg DAILY TALISHA Administration Zolpidem Tartrate 5 mg 10/08/19 18:13 10/10/19 20:25 Ambien PO 5 mg HSPRN PRN Administration Insomnia - Exam Heart: negative: RRR, no murmur, no gallops, no rubs, normal peripheral pulses, irregular, diminshed peripheral pulses, murmur present, II/IV, III/IV Respiratory: rales Gastrointestinal: negative: soft, non-tender, non-distended, normal bowel sounds , no palpable masses, no hepatomegaly, no splenomegaly, no bruit, no guarding, no rigidity, tender to palpation, distended, diminished bowl sounds, voluntary guarding Extremities: negative: no cyanosis, no clubbing, no edema, 1+ LE edema, 2+ LE edema, clubbing Hosp A/P (1) Dyspnea Code(s): R06.00 - DYSPNEA, UNSPECIFIED Status: Acute (2) Cirrhosis Code(s): K74.60 - UNSPECIFIED CIRRHOSIS OF LIVER Status: Acute (3) Pulmonary fibrosis Code(s): J84.10 - PULMONARY FIBROSIS, UNSPECIFIED Status: Acute (4) Diabetes mellitus Code(s): E11.9 - TYPE 2 DIABETES MELLITUS WITHOUT COMPLICATIONS Status: Chronic Qualifiers: Diabetes mellitus type: type 2 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 her initial test was negative but i have retested her given her symptoms. chart reviewed she has pulmonary fibrosis and i do not think she follows with pulmonary. will continue steroids for now. i will hold on the duoneb until she is negative. she also has cirrhosis on ct findings most likely due to hep b. Not sure why she is on eliquis. will continue Levaquin but stop ceftriaxone. 10/10 pt doing well, she does follow with pulmonary and gi for her lungs and cirrhosis. awaiting covid testing. will continue steroids. will ambulate pt to see if she needs oxygen. if she does well possible discharge in am.
[2019-10-11] MEDS: Zolpidem Tartrate 5 MG TAB PO PRN (21:45)
[2019-10-12] MEDS: Furosemide 80 MG TAB PO SCH ×2 (05:10→13:33)
[2019-10-12] MEDS: Mometasone 200 MCG/Formoterol 5 MCG 120 PUFF INHALER INH SCH ×2 (05:11→18:08)
[2019-10-12] MEDS: metFORMIN 500 MG TAB PO SCH ×2 (08:05→18:08)
[2019-10-12] MEDS: Atorvastatin Calcium 40 MG TAB PO SCH (08:05)
[2019-10-12] MEDS: Apixaban 2.5 MG TAB PO SCH ×2 (08:05→20:32)
[2019-10-12] MEDS: Carvedilol 6.25 MG TAB PO SCH ×2 (08:05→20:32)
[2019-10-12] MEDS: Lisinopril 10 MG TAB PO SCH (08:05)
[2019-10-12] MEDS: Rifaximin 550 MG TAB PO SCH ×2 (08:06→20:32)
[2019-10-12] MEDS: PARoxetine 20 MG TAB PO SCH (08:06)
[2019-10-12] MEDS: Flecainide 50 MG TAB PO SCH ×2 (08:06→20:32)
[2019-10-12] MEDS: Spironolactone 25 MG TAB PO SCH (08:06)
[2019-10-12] MEDS: Potassium Chloride 20 MEQ TAB PO SCH (08:06)
[2019-10-12 11:52] VITALS: TEMP 98.5
[2019-10-12] MEDS: ENTECAVIR 1 MG PO SCH ×2 (11:54→11:55)
[2019-10-12 12:24] LABS: SARS-CoV-2 MS2 Positive; SARS-CoV-2 N Gene Negative; SARS-CoV-2 S Gene Negative; SARS-CoV-2 orf1ab Negative
[2019-10-12 20:33] VITALS: BP 142/74
--- NOTE | 2019-10-12 22:19 | DIS ---
DATE OF ADMISSION: 10/08/2019 DATE OF DISCHARGE: 10/12/2019 DISCHARGE DIAGNOSES: As of the following; 1. Shortness of breath. 2. Pneumonia, community acquired. 3. Diabetes. 4. History of hepatitis B. 5. Interstitial lung disease. I was also noted in her previous records, possible sarcoidosis, however, the patient is unaware. 6. Chronic obstructive pulmonary disease. 7. Hypertension. 8. Dyslipidemia. HOSPITAL COURSE: The patient is a 53-year-old female, who initially presented to the hospital with complaints of cough, shortness of breath. The patient has been exposed to patients with COVID. The patient's daughter apparently was COVID positive. She had a rapid test done, which was negative. A retest was done, which was negative. The patient did have a chest x-ray, which appeared to be COVID like, however, upon further evaluating her records and looking at her prior CAT scan, it appears that she has history of interstitial lung disease. I did discuss this with the patient. She states that she does have a physician that she follows up with at [facility]. However, she states that she normally follows up for her cirrhosis of the liver, but she will follow up with her claims configuration analyst also at [facility]. She was not really aware that she had interstitial lung disease. The patient continued to improve through the hospital stay. As I mentioned, her two COVID tests were negative. She was put on oral antibiotics. MEDICATIONS: As the patient will be discharged home, her home medications will bel 1. Metformin 500 mg twice a day. 2. Spironolactone 25 mg daily. 3. Rifaximin 550 mg twice a day. 4. Lisinopril 10 mg daily. 5. Isosorbide 30 mg daily. 6. Flecainide 50 mg twice a day. 7. Entecavir 1 mg daily. 8. Coreg 12.5 twice a day. 9. Atorvastatin 40 mg daily. 10. Eliquis 2.5 twice a day. 11. Levaquin 750 at bedtime for a total of 7 days. 12. Lasix 40 mg b.i.d. from 80 mg twice a day. PHYSICAL EXAMINATION: VITAL SIGNS: Temperature of 98.5, pulse 80, respiratory rate 16, oxygen saturation 94% on room air, and her blood pressure is 101/63. GENERAL: She is awake, alert, and oriented x3. Does not appear in any distress. CV: S1 and S2 present. No murmurs, rubs, or gallops. ABDOMEN: Soft, nontender. Bowel sounds are present x2. She will be discharged home. She will follow up with her primary and also I will add some iron supplements for her since her MCV was low. I have told her specifically to follow up with Pulmonology as outpatient. We will try and see if we can qualify her for oxygen, she might require that for few days. Job ID: [id number]
--- NOTE | 2019-10-13 22:16 | PQF ---
CLINICAL DOCUMENTATION CLARIFICATION FORM: Dear : Caroline Rosales Date / Time: 10/13/2019 22:51 Please exercise your independent, professional judgment in responding to the clarification form. Clinical indicators are provided on the bottom of this form for your review Can you please specify the etiology of patients SOB? [ ] CHF exacerbation (Please specify type) [ ] Systolic [ ] Diastolic [ ] Combined systolic and diastolic pt did not have chf exab [ x ] Pneumonia [ ] COPD exacerbation [ ] Pulmonary fibrosis [ ] Sarcoidosis of lung [ ] Other diagnosis [ ] Unable to determine Physician Signature: Date/Time: For continuity of documentation, please document condition throughout progress notes and discharge summary. Thank You. To be completed by CDI/Coding staff for physician review: Present Clinical Indicators - Signs / Symptoms / Labs Results and Location in Medical Record [x] The patient reports that she has had cough,SOB and chills HP 10/07 [x] SOB could be secondary to Covid vs exacerbation of IPF PN 10/09 [x] chest:reveals diffuse rales both posterior chest and lateral HP / [x] Mild superimposed peripheral opacities may represent superimposed viral infection Chest Xray 10/07 [x] CHF exacerbation ED Notes 10/07 [x] Covid test were negative DS 10/11 Present Risk Factors Results and Location in Medical Record [x] DM HP 07/ [x] CHF HP 07/08 [x] COPD HP 07/08 [x] Former Smoker HP 07/ [x] PNA HP 07/ [x] HTN PN 10/08 [x] Pulmonary fibrosis DS 10/11 [x] Sarcoidosis of of lung DS 10/11 Present Treatments Results and Location in Medical Record [x] Chest Xray Collected [x] Covid test PN 10/08 [x] Pulmonology consult DS 10/11 [x] Lasix 40mg IV MAR 10/07 [x] Albuterol Sulfate 2 puff MAR 10/08 [x] Dulera 200mcg 2 puff MAR 10/08 [x] Aldactone 25mg Oral MAR 10/09 [x] Levaquin 750mg Oral JUN 06 CDS/Automotive Product Engineer Signature:Fabiánnahid ParraMariseladebra Salguero Phone #: ext [phone] Date/Time: 10/13/2019 22:51 This is a permanent part of the Medical Record [facility]
--- NOTE | 2019-10-16 22:50 | PQF ---
CLINICAL DOCUMENTATION CLARIFICATION FORM: Dear : Caroline Rosales Date / Time: 10/17/2019 22:48 Please exercise your independent, professional judgment in responding to the clarification form. Clinical indicators are provided on the bottom of this form for your review Please check appropriate box(es): [ ] Sepsis due to Pneumonia [ ] Septic Shock [ ] Localized infection without sepsis [ ] SIRS due to non-infectious process (please specify etiology) [ ] without organ dysfunction [ ] Other diagnosis [ ] Unable to determine In addition, please specify: Present on Admission (POA): [ ] Yes [ ] No [ ] Unable to determine Physician Signature: Date/Time: For continuity of documentation, please document condition throughout progress notes and discharge summary. Thank You. To be completed by CDI/Coding staff for physician review: Present Clinical Indicators - Signs / Symptoms / Labs Results and Location in Medical Record [x] Vital Signs Temp: 10/07=98.5 10/11=98.7 Vital Signs 10/07 [x] Vital Signs Pulse: 10/0830=909 10/0926=100 Vital Signs 10/08 [x] Vital Signs BP: 10/0945=900/58 10/11=90/55 Vital Signs 10/09 [x] Vital Signs Respi: 10/09=22 07=22 07=22 Vital Signs 10/09 [x] Labs WBC: 10/07=4.0 10/09=3.2 Labs 10/07 [x] Labs Lactate: 10/07=1.0 Labs 10/07 [x] Blood culture: no growth for 5 days Collected 10/07 [x] The patient reports that she has had cough,SOB and chills HP 10/07 [x] chest:reveals diffuse rales both posterior chest and lateral HP 10/07 [x] Mild superimposed peripheral opacities may represent superimposed viral infection Chest Xray 10/07 [x] SOB due to Pneumonia Query answer 10/15 Present Risk Factors Results and Location in Medical Record [x] DM HP / [x] CHF HP 10/07 [x] Former Smoker HP 10/07 [x] Pneumonia HP 10/07 [x] Pulmonary fibrosis DS 10/11 [x] Sarcoidosis of of lung DS 10/11 Present Treatments Results and Location in Medical Record [x] Chest Xray Collected 10/07 [x] Covid test PN 10/08 [x] Pulmonology consult DS 09/30 [x] Levaquin 750mg Oral MAR 10/10 [x] Blood culture Collected 10/07 CDS/Glass Tinter Signature: Christian Salguero Phone #: [facility] [phone] Date/Time: 10/17/2019 22:48 This is a permanent part of the Medical Record [facility]
== END 2019-10-12 21:07 | disposition home or self-care (01) | DRG 194 ==
LOC: ERS 14:05 → 2NO 21:24 → 2SW 10-10 12:52
PROVIDERS: ADMIT Internal Medicine; ATTEND Internal Medicine
DX: J18.9 Pneumonia, unspecified organism (principal); B16.9 Acute hepatitis B without delta-agent and without hepatic coma; J44.1 Chronic obstructive pulmonary disease with (acute) exacerbation; J44.0 Chronic obstructive pulmonary disease with (acute) lower respiratory infection; Z20.828 Contact with and (suspected) exposure to other viral communicable diseases; D86.0 Sarcoidosis of lung; E11.9 Type 2 diabetes mellitus without complications; I50.9 Heart failure, unspecified; E78.5 Hyperlipidemia, unspecified; I11.0 Hypertensive heart disease with heart failure; K74.60 Unspecified cirrhosis of liver; J84.10 Pulmonary fibrosis, unspecified; Z90.710 Acquired absence of both cervix and uterus; Z79.01 Long term (current) use of anticoagulants; Z79.51 Long term (current) use of inhaled steroids; Z79.899 Other long term (current) drug therapy; Z87.891 Personal history of nicotine dependence; Z79.84 Long term (current) use of oral hypoglycemic drugs
CPT/HCPCS: 36415; 36416; 71045; 80048; 80053; 82728; 83605; 83880; 84484; 85025; 85379; 86140; 87040; 87635; 93005; 93010; 94640; 96374; J0696; J1940; J1956; J2916; J3490; J7620; U0002; U0003

== ENCOUNTER 2020-04-23 14:22 | Inpatient (IN) | payer BC ==
[2020-04-23] MEDS ORDERED: Dextrose 5% in Water 1,000 ML IV PRN (18:15)
[2020-04-23] MEDS ORDERED: Dextrose 50% Abboject 50 ML SYRINGE SLOW IVP PRN (18:15)
[2020-04-23] MEDS ORDERED: Ondansetron PF 4 MG/2 ML Vial IVP PRN (18:15)
[2020-04-23] MEDS ORDERED: Ondansetron ODT 4 MG TAB PO PRN (18:15)
[2020-04-23] MEDS ORDERED: HumaLOG 300 UNITS/3 ML VIAL SC PRN ×2 (18:15)
[2020-04-23 18:25] VITALS: BMI 21.5
--- NOTE | 2020-04-23 18:58 | HP ---
PRIMARY CARE PHYSICIAN: Svetlana Kerr MD CHIEF COMPLAINT: "I have been having cough and shortness of breath for the past 3 weeks." HISTORY OF PRESENT ILLNESS: Ms. Collazo is a very pleasant 54-year-old female, who has a history of hypertension, diabetes mellitus, and congestive heart failure. She says that she was in her usual state of health until about 3 weeks ago. She said that she was having a cough, which was initially slightly productive, but now it has become a dry cough and then she also noticed some shortness of breath as well. She says it has gotten progressively worse to the point where she could barely walk from her bathroom to the living room without being severely short of breath. She also has a nebulizer and she had been using that, but this was not helping. She also noticed that she would get short of breath when she tried to sleep through the night. She would have to sleep basically almost sitting up in order to breathe. She also noted some hurting around her chest and she says sometimes she would cough so hard she would get dizzy and she also noted that her legs would hurt when she walked as well. She even saw her primary care physician and got a COVID test thinking that her symptoms were related to COVID-19. This is reportedly negative. Her symptoms continued to worsen and as a result, she came to the ER for evaluation. In the ER, she had a troponin done, which was elevated at 1132. Chest x-ray showed bilateral pulmonary infiltrates and she is being admitted for presumed congestive heart failure exacerbation. REVIEW OF SYSTEMS: All systems were reviewed and are negative except for that mentioned in the History of Present Illness. PAST MEDICAL HISTORY: Significant for diabetes mellitus; hepatitis B, which she says has been cured; congestive heart failure; COPD; hyperlipidemia; hypertension; and interstitial lung disease. PAST SURGICAL HISTORY: Includes hysterectomy. ALLERGIES: NO KNOWN DRUG ALLERGIES. SOCIAL HISTORY: She is single, has 2 children. She is currently not working. She is a former smoker. She quit about 5 years ago. Prior to that, she used to smoke about 2-1/2 packs per week for about 20 years. She also drinks about 8 beers a week. FAMILY HISTORY: Significant for diabetes mellitus. CURRENT MEDICATIONS: Taken from the ER records and these include; 1. Metformin 500 mg twice a day. 2. Carvedilol 12.5 mg twice daily. 3. Lasix 40 mg twice a day. 4. Spironolactone 25 mg daily. 5. Lisinopril 40 mg daily. 6. Potassium chloride 20 mEq p.o. daily. 7. Paroxetine 20 mg daily. 8. inhaled q.6 as needed. 9. ProAir inhaler 2 puffs q.4 hours as needed. 10. Albuterol sulfate q.4 hours as needed. 11. Amlodipine 5 mg daily. 12. Xifaxan 550 mg twice a day. 13. Entecavir 1 mg daily. 14. Eliquis 2.5 mg twice daily. 15. Flecainide 50 mg twice a day. 16. Isosorbide mononitrate extended release 30 mg daily. 17. Prednisone 30 mg daily. 18. Atorvastatin 40 mg daily. 19. Aspirin 325 mg p.o. daily. PHYSICAL EXAMINATION: GENERAL: She is alert and oriented. She appears to be in no acute distress. She is sitting on a stretcher, watching TV. She is chronically ill in appearance and a bit frail. VITAL SIGNS: Blood pressure was 104/79, heart rate 80, respiratory rate of 22, and temperature was 98.3. HEENT: Pupils are equal, round, and reactive. Extraocular muscles are intact. Her sclerae are anicteric. Throat; no erythema, no exudates. NECK: She did have what appeared to be some elevated jugular venous pressure. There are no bruits. No adenopathy. LUNGS: She has bilateral rales. There was no wheezing, no rhonchi. CARDIOVASCULAR: She had a normal S1 and S2. I was not able to appreciate an S3 or S4. No murmurs, clicks, or rubs. ABDOMEN: Obese. It is soft, mildly distended. It is nontender, mildly distended. There is no evidence of any organomegaly. Bowel sounds are present. EXTREMITIES: She has some mild diffuse muscle wasting. There is no calf tenderness. No joint effusions. NEUROLOGIC: The exam is grossly nonfocal. SKIN AND INTEGUMENT: No skin changes. No rash. LABORATORY DATA: The white blood cell count is 7.2, hemoglobin 13.2, hematocrit is 40.7, and platelet count is 111. Sodium 140, potassium 3.5, chloride is 107, CO2 is 22, BUN of 15, creatinine 0.99, and glucose is 106. ProBNP was 1132. IMAGING DATA: Her chest x-ray, this is by my reading, there was evidence of mild cardiomegaly and evidence of small pleural effusions as well as increased pulmonary vascular markings in interstitial pattern with significant air bronchograms. On her EKG, it is sinus rhythm, the rate was 77. She had some T-wave inversions in III, aVF and from V3 to V6 and evidence of a prolonged QT and this is also by my reading. ASSESSMENT AND PLAN: 1. This is a pleasant female, who presents to the emergency room complaining of shortness of breath and chest pain. She gives a history of both PND and orthopnea and has evidence of cardiomegaly and increased pulmonary vascular markings as well as elevated proBNP. The most likely etiology of her symptoms is congestive heart failure exacerbation. She does admit to being somewhat noncompliant with dietary sodium restriction. However, she has not had a recent echocardiogram that she is aware of. Therefore, we will admit the patient. We will start her on IV Lasix. Continue lisinopril, Aldactone and trend her cardiac enzymes. 2. The patient appears to be on medications usually reserved for atrial fibrillation. Therefore, we will continue the Eliquis as well as the flecainide. 3. Increased abdominal girth. We will get an abdominal ultrasound given her history of hepatitis B even though she states that this has been cared. 4. Diabetes mellitus. Again, we will reconcile and restart her home medications as well as place her on a sliding-scale insulin. 5. Hypertension. Again, we will reconcile and restart her medications. Job ID: [id number]
[2020-04-23 19:47] LABS: Troponin I 0.024 ng/mL (< 0.028)
[2020-04-23] MEDS: Famotidine 20 MG TAB PO SCH (20:56)
[2020-04-23 21:51] LABS: Troponin I 0.027 ng/mL (< 0.028)
[2020-04-23] MEDS: Benzonatate 100 MG CAP PO PRN (22:45)
[2020-04-24 05:01] LABS: Anion Gap 16 mmol/L (10-20); BUN (Urea Nitrogen) 14 mg/dL (9.8-20.1); Calc. Creatinine Clearance 61 mL/min (70-130); Calcium 8.4 mg/dL (7.8-10.44); Carbon Dioxide 23 mmol/L (22-29); Chloride 105 mmol/L (98-107); Glucose 110 mg/dL (70-105); Potassium 3.5 mmol/L (3.5-5.1); Sodium 140 mmol/L (136-145)
[2020-04-24] MEDS: Furosemide 40 MG/4 ML VIAL SLOW IVP SCH ×2 (05:37→13:45)
[2020-04-24 05:39] LABS: Eosinophils 1 % (0-10); Lymphocytes 21 % (21-51); MDiff Complete? YES; Mean Corpuscular HGB CONC 33.5 g/dL (32.0-36.0); Mean Corpuscular Volume 86.6 fL (78.0-98.0); Mean Platelet Volume 11.9 fL (7.4-10.4); Monocytes 11 % (0-10); Neutrophil 67 % (42-75); Platelet Count 123 thou/uL (130-400); Platelet Morphology Comment Appears Decreased; RBC Distribution Width 15.8 % (11.5-14.5); RBC Morphology Normal; Red Blood Cell (RBC) Count 4.47 mill/uL (4.20-5.40); White Blood Cell (WBC) Count 5.5 thou/uL (4.8-10.8)
[2020-04-24] MEDS: Famotidine 20 MG TAB PO SCH ×2 (08:56→20:54)
--- NOTE | 2020-04-24 08:56 | ULT ---
ABDOMINAL ULTRASOUND: Date: 04/24/2020 PROVIDED CLINICAL HISTORY: Abdominal distention. FINDINGS: The visualized abdominal aorta, IVC, and pancreas appear normal. The liver demonstrates a nodular peripheral margin without evidence for mass or intrahepatic biliary ductal dilatation. The common duct is not dilated. The gallbladder demonstrates no stones, wall thick ening, or pericholecystic fluid. The kidneys demonstrated no hydronephrosis or mass. The spleen is markedly enlarged, measuring about 18.4 x 10.7 x 5.9 cm. There is no evidence for free intraperitoneal fluid. IMPRESSION: 1. Splenomegaly, possibly on the basis of portal hypertension given the cirrhotic morphology of the liver suspected. 2. Otherwise unremarkable abdominal ultrasound. POS: ELIZ
[2020-04-24] MEDS ORDERED: FLU VACC QS2020-21(6MOS UP)/PF 60 MCG/0.5 ML SYRINGE IM ONE (09:00)
--- NOTE | 2020-04-24 11:31 | PDOC.HOSPP ---
- Subjective Encounter Date: 04/24/20 Encounter Time: 12:01 Subjective: Ms. Collazo was seen this morning in follow-up of acute CHF exacerbation. She feels much better today saying she can have longer conversations without having to catch her breath. She still complains of a dry cough, weakness in both lower extremities, wheezing, and she has not had a bowel movement since her admission. S. She also complains of a new bruise found on her right waist and upper thigh. Etiology unknown - Objective Vital Signs & Weight: Vital Signs (12 hours) Temp Pulse Pulse Pulse Resp BP BP 04/24/20 11:06 77 79 106/57 L 99/68 04/24/20 08:50 97.6 F 82 16 04/24/20 03:54 98.1 F 71 16 BP Pulse Ox Pulse Ox Pulse Ox 04/24/20 11:06 96 90 L 04/24/20 08:50 123/74 95 04/24/20 03:54 131/82 96 Weight Weight 127 lb 8 oz I&O: 04/23/20 04/24/20 04/25/20 06:59 06:59 06:59 Intake Total 300 Output Total 450 Balance -150 Result Diagrams: 04/24/20 04:16 04/24/20 04:16 Additional Labs: Accuchecks 04/24/20 04/24/20 04/23/20 11:03 05:37 20:58 POC Glucose 129 H 125 H 113 H Hospitalist ROS - Review of Systems Constitutional: denies: fever Respiratory: reports: cough, shortness of breath (has improved, but still present.), SOB with excertion Gastrointestinal: denies: nausea, vomiting, abdominal pain, diarrhea, co nstipation Musculoskeletal: reports: back pain Skin: reports: bruising Neurological: reports: weakness (in both lower extremities.) - Medication Medications: Active Medications Generic Name Dose Route Start Last Admin Trade Name Freq PRN Reason Stop Dose Admin Benzonatate 100 mg 04/23/20 21:39 04/23/20 22:45 Benzonatate 100 Mg Cap PO 100 mg Q4H PRN Administration Cough Famotidine 20 mg 04/23/20 21:00 04/24/20 08:56 Famotidine 20 Mg Tab PO 20 mg BID TALISHA Administration Furosemide 40 mg 04/24/20 06:00 04/24/20 05:37 Furosemide 40 Mg/4 Ml Vial SLOW IVP 40 mg 0600,1400 TALISHA Administration - Exam Eye: PERRL, anicteric sclera Neck: no JVD Heart: RRR, no murmur, no gallops, no rubs, normal peripheral pulses Respiratory: normal chest expansion, wheezes (right and left upper lobes mostly.) Gastrointestinal: soft, non-tender, normal bowel sounds, no palpable masses, no hepatomegaly, distended (slightly) Extremities: no cyanosis, no clubbing, no edema Skin - other findings: nodular bruise at R 5th IC space at the mid-axillary line & R upper thigh. Musculoskeletal: normal strength Hosp A/P (1) Congestive heart failure due to hypertension Code(s): I11.0 - HYPERTENSIVE HEART DISEASE WITH HEART FAILURE Status: Acute Plan: continue Lasix (2) Dyspnea Code(s): R06.00 - DYSPNEA, UNSPECIFIED Status: Acute - Plan Her shortness of breath is multifactorial as listed below including noncompliance with medications and poor p.o. intake and overall deconditioning. -Etiology i is likely with history of atrial fibrillation and cirrhosis - Acute on chronic CHF exacerbation unlikely as she clinically does not look volume overload BNP elevation very likely due to cirrhosis and not likely due to CHF exacer bation -Clinically she does not look volume overload 0- on the contrary quite fragile and no pitting edema appreciated -Echo showed EF of 60% and diastolic dysfunction; Right ventricular enlargement moderate tricuspid regurgitation -Reduced the diuresis will repeat the BMP tomorrow her creatinine normal range History of interstitial lung disease Possible sarcoidosis but not confirmed. COPD without being exacerbation Hypertension Possible portal hypertension History of hepatitis B -It appears patient is on antiviral medication we need to verify before starting her on it. Increased abdominal girth--- multifactorial --Abdominal ultrasound showed only splenomegaly but no ascites. Pancreas abdominal aorta and IVC appears normal no hydronephrosis or mass. 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 Questionable atrial fibrillation [id number] score is 4 --pt is on flecainide and eliquis -We need to verify with her pharmacy. Type 2 diabetes mellitus Malnutrition and catchetic -Moderate due to poor p.o. 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
[2020-04-24] MEDS ORDERED: Polyethylene Glycol 3350 17 GM Packet PO PRN (15:28)
[2020-04-24] MEDS ORDERED: Senokot S 8.6-50 MG TAB PO SCH (15:30)
[2020-04-24] MEDS: Benzonatate 100 MG CAP PO PRN (16:01)
[2020-04-24] MEDS: metFORMIN 500 MG TAB PO SCH (18:06)
[2020-04-24] MEDS: Apixaban 2.5 MG TAB PO SCH (20:53)
[2020-04-24] MEDS: Acetaminophen 325 MG TAB PO PRN (20:54)
[2020-04-24] MEDS: Atorvastatin Calcium 40 MG TAB PO SCH (20:54)
[2020-04-24] MEDS: Flecainide 50 MG TAB PO SCH (20:54)
[2020-04-24] MEDS: Rifaximin 550 MG TAB PO SCH (20:54)
[2020-04-24] MEDS: Carvedilol 6.25 MG TAB PO SCH (20:54)
[2020-04-24] MEDS: Senokot S 8.6-50 MG TAB PO SCH (20:55)
[2020-04-25 05:39] LABS: Anion Gap 15 mmol/L (10-20); BUN (Urea Nitrogen) 17 mg/dL (9.8-20.1); Calc. Creatinine Clearance 49 mL/min (70-130); Calcium 8.7 mg/dL (7.8-10.44); Carbon Dioxide 29 mmol/L (22-29); Chloride 101 mmol/L (98-107); Glucose 125 mg/dL (70-105); Magnesium 1.9 mg/dL (1.6-2.6); Potassium 3.4 mmol/L (3.5-5.1); Sodium 142 mmol/L (136-145)
[2020-04-25] MEDS ORDERED: Furosemide 20 MG/2 ML VIAL SLOW IVP SCH (06:00)
[2020-04-25 06:07] LABS: Thyroid Stimulating Hormone 0.6408 uIU/mL (0.35-4.94); Vitamin D, 25 Hydroxy 6.9 ng/ml (> 30.0)
[2020-04-25] MEDS ORDERED: Potassium Chloride 20 MEQ TAB PO SCH (08:30)
[2020-04-25] MEDS ORDERED: Spironolactone 25 MG TAB PO SCH (09:00)
[2020-04-25] MEDS ORDERED: Lisinopril 20 MG TAB PO SCH (09:00)
[2020-04-25] MEDS: Senokot S 8.6-50 MG TAB PO SCH ×2 (09:18→20:28)
[2020-04-25] MEDS: Aspirin 81 mg Enteric Coated Tablet PO SCH (09:18)
[2020-04-25] MEDS: Benzonatate 100 MG CAP PO PRN ×2 (09:19→20:28)
[2020-04-25] MEDS: Famotidine 20 MG TAB PO SCH ×2 (09:19→20:26)
[2020-04-25] MEDS: metFORMIN 500 MG TAB PO SCH ×2 (09:20→16:10)
[2020-04-25] MEDS: Flecainide 50 MG TAB PO SCH ×2 (09:20→20:27)
[2020-04-25] MEDS: Apixaban 2.5 MG TAB PO SCH ×2 (09:20→20:27)
[2020-04-25] MEDS: Cholecalciferol 1,000 UNITS (25 MCG) TAB PO SCH (09:20)
[2020-04-25] MEDS: Rifaximin 550 MG TAB PO SCH ×2 (09:21→20:27)
[2020-04-25] MEDS: Spironolactone 25 MG TAB PO SCH (10:25)
[2020-04-25] MEDS: Lisinopril 10 MG TAB PO SCH (10:25)
[2020-04-25] MEDS: Carvedilol 6.25 MG TAB PO SCH ×2 (10:25→20:29)
[2020-04-25] MEDS: Furosemide 40 MG TAB PO SCH (10:25)
[2020-04-25] MEDS: Acetaminophen 325 MG TAB PO PRN (12:01)
--- NOTE | 2020-04-25 14:42 | PDOC.HOSPP ---
- Subjective Encounter Date: 04/25/20 Encounter Time: 10:45 Subjective: Patient appears well she states that she is not eating the last several months.. She feels quite improved and now and appetite seems to be improving. Repeat BNP is significantly reduced from 6 48-1 87 And she did not receive any aggressive IV diuresis suggesting this may not be due to CHF exacerbation. Possibly cirrhosis contributing to her elevated BNP. Her urine output -700 mL. We do not have her weight today. - Objective Vital Signs & Weight: Vital Signs (12 hours) Temp Pulse Resp BP BP BP BP 04/25/20 13:28 78 16 04/25/20 12:40 97.6 F 77 16 98/49 L 04/25/20 09:52 90/54 L 86/54 L 97/61 04/25/20 09:25 99/61 04/25/20 07:26 79 20 04/25/20 04:00 97.1 F L 64 18 104/65 Pulse Ox 04/25/20 13:28 04/25/20 12:40 93 L 04/25/20 09:52 04/25/20 09:25 04/25/20 07:26 04/25/20 04:00 99 Weight Weight 127 lb 8 oz I&O: 04/24/20 04/25/20 04/26/20 06:59 06:59 06:59 Intake Total 300 1500 Output Total 450 2200 Balance -150 -700 Result Diagrams: 04/24/20 04:16 04/25/20 11:46 Additional Labs: Accuchecks 04/25/20 04/24/20 04/24/20 05:59 20:16 16:57 POC Glucose 127 H 118 H 150 H Hospitalist ROS - Medication Medications: Active Medications Generic Name Dose Route Start Last Admin Trade Name Freq PRN Reason Stop Dose Admin Acetaminophen 650 mg 04/23/20 18:15 04/25/20 12:01 Acetaminophen 325 Mg Tab PO 650 mg Q4H PRN Administration Headache/Fever/Mild Pain (1-3) Albuterol/Ipratropium 3 ml 04/24/20 19:00 04/25/20 13:28 Ipratropium/Albuterol Sulfate 3 Ml Neb NEB 3 ml [id number] TALISHA Administration Apixaban 2.5 mg 04/24/20 21:00 04/25/20 09:20 Apixaban 2.5 Mg Tab PO 2.5 mg BID TALISHA Administration Aspirin 81 mg 04/25/20 09:00 04/25/20 09:18 Aspirin 81 Mg Enteric Coated Tablet PO 81 mg DAILY TALISHA Administration Atorvastatin Calcium 40 mg 04/24/20 21:00 04/24/20 20:54 Atorvastatin Calcium 40 Mg Tab PO 40 mg HS TALISHA Administration Benzonatate 100 mg 04/23/20 21:39 04/25/20 09:19 Benzonatate 100 Mg Cap PO 100 mg Q4H PRN Administration Cough Carvedilol 12.5 mg 04/24/20 21:00 04/25/20 10:25 Carvedilol 6.25 Mg Tab PO Not Given BID TALISHA Cholecalciferol 1,000 units 04/25/20 09:00 04/25/20 09:20 Cholecalciferol 1,000 Units (25 Mcg) Tab PO 1,000 units DAILY TALISHA Administration Famotidine 20 mg 04/23/20 21:00 04/25/20 09:19 Famotidine 20 Mg Tab PO 20 mg BID TALISHA Administration Flecainide Acetate 50 mg 04/24/20 21:00 04/25/20 09:20 Flecainide 50 Mg Tab PO 50 mg BID TALISHA Administration Furosemide 40 mg 04/25/20 07:30 04/25/20 10:25 Furosemide 40 Mg Tab PO Not Given DAILY-AC [facility] Isosorbide Mononitrate 30 mg 04/25/20 09:00 04/25/20 10:25 Isosorbide Mononitrate Er 30 Mg Tab PO Not Given DAILY [facility] Lisinopril 10 mg 04/25/20 09:00 04/25/20 10:25 Lisinopril 10 Mg Tab PO Not Given DAILY [facility] Metformin HCl 500 mg 04/24/20 17:00 04/25/20 09:20 Metformin 500 Mg Tab PO 500 mg BID-WM TALISHA Administration Rifaximin 550 mg 04/24/20 21:00 04/25/20 09:21 Rifaximin 550 Mg Tab PO 550 mg BID TALISHA Administration Senna/Docusate Sodium 2 tab 04/24/20 21:00 04/25/20 09:18 Senokot S 8.6-50 Mg Tab PO 2 tab BID TALISHA Administration Sodium Chloride 10 ml 04/25/20 09:00 04/25/20 09:21 Flush - Normal Saline 10 Ml Syringe IVF 10 ml Q12HR TALISHA Administration Spironolactone 12.5 mg 04/25/20 09:00 04/25/20 10:25 Spironolactone 25 Mg Tab PO Not Given DAILY TALISHA - Exam General Appearance: NAD, awake alert Eye: PERRL ENT: normocephalic atraumatic Neck: supple Heart: RRR Respiratory: CTAB, normal chest expansion Gastrointestinal: soft, normal bowel sounds Neurological: cranial nerve grossly intact, no focal deficits Psychiatric: normal affect, normal behavior, A&O x 3 Hosp A/P (1) Congestive heart failure due to hypertension Code(s): I11.0 - HYPERTENSIVE HEART DISEASE WITH HEART FAILURE Status: Acute (2) Dyspnea Code(s): R06.00 - DYSPNEA, UNSPECIFIED Status: Acute - Plan Her shortness of breath is multifactorial as listed below including no ncompliance with medications and poor p.o. intake and overall deconditioning. -Etiology i is likely with history of atrial fibrillation and cirrhosis - Acute on chronic CHF exacerbation unlikely as she clinically does not look volume overload BNP elevation very likely due to cirrhosis and not likely due to CHF exacerbation -Clinically she does not look volume overload 0- on the contrary quite fragile and no pitting edema appreciated -Echo showed EF of 60% and diastolic dysfunction; Right ventricular enlargement moderate tricuspid regurgitation -Reduced the diuresis will repeat the BMP tomorrow her creatinine normal range History of interstitial lung disease Possible sarcoidosis but not confirmed. COPD without being exacerbation Hypertension Possible portal hypertension History of hepatitis B -It appears patient is on antiviral medication we need to verify before starting her on it. Increased abdominal girth--- multifactorial --Abdominal ultrasound showed only splenomegaly but no ascites. Pancreas abdominal aorta and IVC appears normal no hydronephrosis or mass. 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 Questionable atrial fibrillation [id number] score is 4 --pt is on flecainide and eliquis -We need to verify with her pharmacy. Type 2 diabetes mellitus Malnutrition and catchetic -Moderate due to poor p.o. 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 24th Repeat BNP is significantly reduced from 6 48 to 1 87 And she did not receive any aggressive IV diuresis suggesting this may not be due to CHF exacerbation. Possibly cirrhosis contributing to her elevated BNP. Her urine output -700 mL. We do not have her weight today. Like I mentioned above shortness of breath is multifactorial with her several comorbidities including poor p.o. intake. -Physical therapy consult After cardiology input possibly discharge home with home health if needed.
--- NOTE | 2020-04-25 20:06 | CON ---
DATE OF CONSULTATION: HISTORY: Carmelina Collazo is a 54-year-old black female, who has history of diastolic heart failure. She was first evaluated by Dr. Farfan in October 2013. Ejection fraction on catheterization was 45% to 50%. and she had normal coronary arteries. Her care was then taken over by Dr. Szymanski in October 2015. At that time, she was found to have nonsustained paroxysmal atrial fibrillation. She was last seen in the office in May 2016. She was hospitalized in March 2018 with COPD exacerbation and in October 2019 with community-acquired pneumonia. She now presents complaining of increased shortness of breath over the past 3 weeks as well as a nonproductive cough. She would have episodes of PND and orthopnea, would have to sleep in a chair. She denied any peripheral edema or chest discomfort. Chest x-ray in the emergency room revealed multifocal infiltrates. COVID is negative. She has been given intravenous furosemide and feels much better. PAST MEDICAL HISTORY: Hypertension, diabetes, hepatitis B for which she has been treated, diastolic heart failure, COPD, hyperlipidemia, and interstitial lung disease. OPERATIONS: Hysterectomy. MEDICATIONS: 1. Albuterol 2 puffs q.4 hours p.r.n. 2. Eliquis 2.5 mg b.i.d. 3. Aspirin 81 daily. 4. Atorvastatin 40 at bedtime. 5. Carvedilol 12.5 b.i.d. 6. Entecavir 1 mg daily. 7. Ferrous sulfate 325 daily. 8. Tambocor 50 b.i.d. 9. Furosemide 40 b.i.d. 10. DuoNebs. 11. Isosorbide mononitrate 30 daily. 12. Lisinopril 20 daily. 13. Metformin 500 mg b.i.d. 14. Dulera 2 puffs b.i.d. 15. Paroxetine 20 mg daily. 16. KCl 20 mEq daily. 17. Prednisone 30 mg q.a.m. 18. Xifaxan 550 mg b.i.d. 19. Spironolactone 25 q.a.m. ALLERGIES: NONE. SOCIAL HISTORY: She quit smoking 5 years ago. Prior to that she smoked about a half pack per day. She also drinks about 8 beers per week. FAMILY HISTORY: Negative for coronary artery disease. REVIEW OF SYSTEMS: 10-point review of systems is otherwise unremarkable. PHYSICAL EXAMINATION: VITAL SIGNS: 98/49, pulse of 77. HEENT: PERRL. NECK: Supple. CHEST: Reveals bibasilar rales. There is no wheezing. CARDIOVASCULAR: S1, S2 normal without any S3, S4, or murmurs. ABDOMEN: Normal bowel sounds without tenderness, organomegaly. EXTREMITIES: Revealed no clubbing, cyanosis, or edema. NEUROLOGICAL: Grossly intact. SKIN: Warm and dry. LABORATORY DATA: EKG revealed normal sinus rhythm with diffuse T-wave inversion. Hemoglobin 13.0, hematocrit 38.7, white count 5500, platelets 123,000. Sodium 142, potassium 3.4, chloride 101, carbon dioxide 29, BUN 17, creatinine 1.19. BNP 187.4. TSH is normal. BNP 648.1 on admission. Echocardiogram revealed ejection fraction of 55% to 60% with evidence of diastolic dysfunction, moderately enlarged right ventricle, mild mitral regurgitation, mild to moderate tricuspid regurgitation, mild pulmonic regurgitation, and aortic valvular sclerosis. IMPRESSION: 1. [id number] diastolic heart failure. 2. Normal coronary arteries on catheterization in 2013. 3. Previous history of systolic dysfunction. However, ejection fraction is currently normal on echo. 4. Hypertension, although blood pressure is somewhat low at this time. 5. Diabetes. 6. Hypercholesterolemia. 7. Former smoker. 8. History of atrial fibrillation in the past. PLAN: The patient will continue to be diuresed. Lisinopril dose has been reduced with current blood pressures and this may need to be reduced even further. Also she complains of leg cramping and consideration will be given to lower extremity venous duplex exam as an outpatient to check for venous insufficiency with her history of frequent leg cramping. Job ID: [id number] [facility]
[2020-04-25] MEDS: Atorvastatin Calcium 40 MG TAB PO SCH (20:28)
[2020-04-26 04:32] LABS: Platelet Count 131 thou/uL (130-400)
[2020-04-26 04:56] LABS: Anion Gap 8 mmol/L (10-20); BUN (Urea Nitrogen) 16 mg/dL (9.8-20.1); Calc. Creatinine Clearance 59 mL/min (70-130); Calcium 8.5 mg/dL (7.8-10.44); Carbon Dioxide 33 mmol/L (22-29); Chloride 101 mmol/L (98-107); Glucose 130 mg/dL (70-105); Potassium 3.5 mmol/L (3.5-5.1); Sodium 138 mmol/L (136-145)
[2020-04-26] MEDS: metFORMIN 500 MG TAB PO SCH ×2 (08:25→17:02)
[2020-04-26] MEDS: Cholecalciferol 1,000 UNITS (25 MCG) TAB PO SCH (08:26)
[2020-04-26] MEDS: Carvedilol 6.25 MG TAB PO SCH ×2 (08:26→21:05)
[2020-04-26] MEDS: Rifaximin 550 MG TAB PO SCH ×2 (08:26→21:06)
[2020-04-26] MEDS: Famotidine 20 MG TAB PO SCH ×2 (08:26→21:06)
[2020-04-26] MEDS: Apixaban 2.5 MG TAB PO SCH ×2 (08:26→21:05)
[2020-04-26] MEDS: Aspirin 81 mg Enteric Coated Tablet PO SCH (08:26)
[2020-04-26] MEDS: Flecainide 50 MG TAB PO SCH ×2 (08:26→21:06)
[2020-04-26] MEDS: Furosemide 40 MG TAB PO SCH (08:26)
[2020-04-26] MEDS: Lisinopril 10 MG TAB PO SCH (08:27)
[2020-04-26] MEDS: Senokot S 8.6-50 MG TAB PO SCH ×2 (08:27→21:06)
[2020-04-26] MEDS: Spironolactone 25 MG TAB PO SCH (08:27)
[2020-04-26] MEDS ORDERED: Magnesium Oxide 400 MG TAB PO SCH (09:30)
[2020-04-26] MEDS: Benzonatate 100 MG CAP PO PRN ×3 (10:49→21:06)
--- NOTE | 2020-04-26 10:50 | PDOC.HOSPP ---
- Subjective Encounter Date: 04/26/20 Encounter Time: 11:14 Subjective: Ms. Collazo was seen this morning in follow-up of acute CHF exacerbation and lower extremity weakness. She says that she feels much better today. The wheezing has subsided but she still has the cough. Her leg weakness has also improved. She says that she has been compliant with the Hepatitis B medication even though she does not have the condition anymore. She has no other complaints. She has ongoing cramps in lower extremities - Objective Vital Signs & Weight: Vital Signs (12 hours) Temp Pulse Resp BP BP Pulse Ox 04/26/20 08:26 100/67 04/26/20 07:45 97.6 F 69 17 104/80 99 04/26/20 07:32 74 14 04/26/20 04:00 98.2 F 69 20 98/65 99 04/26/20 00:00 71 91/53 L Weight Weight 125 lb 6.4 oz I&O: 04/25/20 04/26/20 04/27/20 06:59 06:59 06:59 Intake Total 1500 1300 Output Total 2200 250 Balance -700 1050 Result Diagrams: 04/26/20 03:59 04/26/20 03:59 Additional Labs: Accuchecks 04/26/20 04/25/20 04/25/20 05:53 20:36 16:56 POC Glucose 112 H 115 H 136 H 04/25/20 11:28 POC Glucose 112 H Hospitalist ROS - Review of Systems Constitutional: denies: fever Respiratory: reports: cough (wet). denies: shortness of breath Cardiovascular: denies: chest pain, palpitations, edema Gastrointestinal: denies: nausea, vomiting, abdominal pain, diarrhea, constipation Neurological: reports: weakness. denies: numbness - Medication Medications: Active Medications Generic Name Dose Route Start Last Admin Trade Name Freq PRN Reason Stop Dose Admin Acetaminophen 650 mg 04/23/20 18:15 04/25/20 12:01 Acetaminophen 325 Mg Tab PO 650 mg Q4H PRN Administration Headache/Fever/Mild Pain (1-3) Albuterol/Ipratropium 3 ml 04/24/20 19:00 04/26/20 07:32 Ipratropium/Albuterol Sulfate 3 Ml Neb NEB 3 ml [id number] TALISHA Administration Apixaban 2.5 mg 04/24/20 21:00 04/26/20 08:26 Apixaban 2.5 Mg Tab PO 2.5 mg BID [facility] Administration Aspirin 81 mg 04/25/20 09:00 04/26/20 08:26 Aspirin 81 Mg Enteric Coated Tablet PO 81 mg DAILY TALISHA Administration Atorvastatin Calcium 40 mg 04/24/20 21:00 04/25/20 20:28 Atorvastatin Calcium 40 Mg Tab PO 40 mg HS TALISHA Administration Benzonatate 100 mg 04/23/20 21:39 04/26/20 10:49 Benzonatate 100 Mg Cap PO 100 mg Q4H PRN Administration Cough Cholecalciferol 1,000 units 04/25/20 09:00 04/26/20 08:26 Cholecalciferol 1,000 Units (25 Mcg) Tab PO 1,000 units DAILY TALISHA Administration Famotidine 20 mg 04/23/20 21:00 04/26/20 08:26 Famotidine 20 Mg Tab PO 20 mg BID TALISHA Administration Flecainide Acetate 50 mg 04/24/20 21:00 04/26/20 08:26 Flecainide 50 Mg Tab PO 50 mg BID [facility] Administration Furosemide 40 mg 04/25/20 07:30 04/26/20 08:26 Furosemide 40 Mg Tab PO Not Given DAILY-AC [facility] Magnesium Oxide 400 mg 04/26/20 09:30 04/26/20 10:48 Magnesium Oxide 400 Mg Tab PO 04/26/20 11:30 400 mg NOW TALISHA Administration Metformin HCl 500 mg 04/24/20 17:00 04/26/20 08:25 Metformin 500 Mg Tab PO 500 mg BID-WM TALISHA Administration Rifaximin 550 mg 04/24/20 21:00 04/26/20 08:26 Rifaximin 550 Mg Tab PO 550 mg BID [facility] Administration Senna/Docusate Sodium 2 tab 04/24/20 21:00 04/26/20 08:27 Senokot S 8.6-50 Mg Tab PO Not Given BID [facility] Sodium Chloride 10 ml 04/25/20 09:00 04/26/20 08:27 Flush - Normal Saline 10 Ml Syringe IVF 10 ml Q12HR TALISHA Administration Spironolactone 12.5 mg 04/25/20 09:00 04/26/20 08:27 Spironolactone 25 Mg Tab PO Not Given DAILY TALISHA - Exam Eye: PERRL, anicteric sclera Neck: no JVD Heart: RRR, no murmur, no gallops, no rubs, normal peripheral pulses Respiratory: CTAB, no wheezes, no rales, no ronchi, normal chest expansion, no tachypnea Gastrointestinal: soft, non-tender, normal bowel sounds, no palpable masses, no hepatomegaly Gastrointestinal - other findings: wide abdominal girth. Hosp A/P (1) Congestive heart failure due to hypertension Code(s): I11.0 - HYPERTENSIVE HEART DISEASE WITH HEART FAILURE Status: Acute (2) Dyspnea Code(s): R06.00 - DYSPNEA, UNSPECIFIED Status: Acute - Plan Her shortness of breath is multi-factorial as listed below including noncompliance with medications and poor p.o. intake and overall deconditioning. -Etiology i is likely with history of atrial fibrillation and cirrhosis Acute on chronic CHF exacerbation unlikely as she clinically does not look volume overloaded. BNP elevation very likely due to cirrhosis and not likely due to CHF exacerbation -Clinically she does not look volume overload -on the contrary quite fragile and no pitting edema appreciated -Echo showed EF of 60% and diastolic dysfunction; Right ventricular enlargement moderate tricuspid regurgitation -Reduced the diuresis will repeat the BMP tomorrow her creatinine normal range History of interstitial lung disease Possible sarcoidosis but not confirmed. COPD without being exacerbation Hypertension Possible portal hypertension History of hepatitis B-she is taking antiviral Increased abdominal girth--- multi-factorial --Abdominal ultrasound showed only splenomegaly, but no ascites. Pancreas abdominal aorta and IVC appears normal; no hydronephrosis or mass. 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 Questionable atrial fibrillation [id number] score is 4 --pt is on flecainide and eliquis -She is compliant in taking this medications Type 2 diabetes mellitus Malnutrition and cachectic -Moderate due to poor p.o. intake and multiple co-morbidities Deconditioning -Physical therapy evaluation 24 Repeat BNP is significantly reduced from 648 to 187 And she did not receive any aggressive IV diuresis suggesting this may not be due to CHF exacerbation. Possibly cirrhosis contributing to her elevated BNP. Her urine output -700 mL. We do not have her weight today. shortness of breath is multi-factorial with her several co-morbidities incl uding poor p.o. intake. -Physical therapy consult After cardiology input possibly discharge home with home health if needed. 25th Leg cramps Her electrolyte panels including potassium magnesium and calcium in the normal range. 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 She lost about 2 pounds with the very gentle diuresis. Creatinine is stable. Physical therapy evaluation today If she remains improved and stable plan for discharge tomorrow
[2020-04-26] MEDS: Cyclobenzaprine 10 MG TAB PO SCH ×2 (15:04→21:05)
[2020-04-26] MEDS: Acetaminophen 325 MG TAB PO PRN (15:07)
[2020-04-26] MEDS: Atorvastatin Calcium 40 MG TAB PO SCH (21:05)
[2020-04-27 04:50] LABS: Hemoglobin 12.7 g/dL (12.0-16.0); Platelet Count 123 thou/uL (130-400)
[2020-04-27 05:12] LABS: Anion Gap 13 mmol/L (10-20); BUN (Urea Nitrogen) 12 mg/dL (9.8-20.1); Calc. Creatinine Clearance 72 mL/min (70-130); Calcium 8.5 mg/dL (7.8-10.44); Carbon Dioxide 26 mmol/L (22-29); Chloride 105 mmol/L (98-107); Glucose 91 mg/dL (70-105); Potassium 3.9 mmol/L (3.5-5.1); Sodium 140 mmol/L (136-145)
[2020-04-27] MEDS: Cyclobenzaprine 10 MG TAB PO SCH ×3 (09:27→21:12)
[2020-04-27] MEDS: Famotidine 20 MG TAB PO SCH ×2 (09:27→21:13)
[2020-04-27] MEDS: Aspirin 81 mg Enteric Coated Tablet PO SCH (09:27)
[2020-04-27] MEDS: Flecainide 50 MG TAB PO SCH ×2 (09:28→21:13)
[2020-04-27] MEDS: Magnesium Oxide 400 MG TAB PO SCH (09:28)
[2020-04-27] MEDS: Benzonatate 100 MG CAP PO PRN (09:28)
[2020-04-27] MEDS: Apixaban 2.5 MG TAB PO SCH ×2 (09:28→21:12)
[2020-04-27] MEDS: metFORMIN 500 MG TAB PO SCH ×2 (09:28→15:32)
[2020-04-27] MEDS: Cholecalciferol 1,000 UNITS (25 MCG) TAB PO SCH (09:28)
[2020-04-27] MEDS: Rifaximin 550 MG TAB PO SCH ×2 (09:28→21:13)
[2020-04-27] MEDS: Senokot S 8.6-50 MG TAB PO SCH ×2 (09:29→21:15)
[2020-04-27] MEDS ORDERED: Carvedilol 6.25 MG TAB PO SCH (10:15)
[2020-04-27] MEDS ORDERED: Furosemide 40 MG TAB PO SCH (10:15)
[2020-04-27] MEDS ORDERED: Flecainide 50 MG TAB PO SCH (10:15)
[2020-04-27] MEDS: Spironolactone 25 MG TAB PO SCH (10:54)
[2020-04-27] MEDS: Carvedilol 6.25 MG TAB PO SCH ×2 (11:13→21:12)
[2020-04-27] MEDS: Furosemide 40 MG TAB PO SCH (11:14)
--- NOTE | 2020-04-27 11:59 | PDOC.HOSPP ---
- Subjective Encounter Date: 04/27/20 Encounter Time: 10:00 Subjective: Ms. Collazo was seen this morning in follow-up of acute respiratory failure and lower extremity weakness. She complains that she feels more tired today, and the cough has gotten worse. She has no lower extremity weakness today. PT evaluation pending. Thrombocytopenic at 123, but stable. - Objective Vital Signs & Weight: Vital Signs (12 hours) Temp Pulse Resp BP BP Pulse Ox 04/27/20 10:54 112/69 04/27/20 07:43 70 14 96 04/27/20 07:05 98.8 F 16 L 16 129/80 97 04/27/20 04:00 98.2 F 75 22 H 108/57 L 99 04/27/20 00:06 74 12 Weight Weight 124 lb 1.6 oz I&O: 04/26/20 04/27/20 04/28/20 06:59 06:59 06:59 Intake Total 1300 750 Output Total 250 Balance 1050 750 Result Diagrams: 04/28/20 03:37 04/28/20 09:45 Additional Labs: Accuchecks 04/27/20 04/26/20 04/26/20 10:42 20:24 16:35 POC Glucose 147 H 113 H 111 H Hospitalist ROS - Review of Systems Constitutional: denies: fever, chills, sweats Respiratory: reports: cough. denies: shortness of breath, wheezing Cardiovascular: denies: chest pain, palpitations, orthopnea Gastrointestinal: denies: nausea, vomiting, abdominal pain, diarrhea, constipation Neurological: denies: weakness, numbness - Medication Medications: Active Medications Generic Name Dose Route Start Last Admin Trade Name Freq PRN Reason Stop Dose Admin Acetaminophen 650 mg 04/23/20 18:15 04/26/20 15:07 Acetaminophen 325 Mg Tab PO 650 mg Q4H PRN Administration Headache/Fever/Mild Pain (1-3) Albuterol/Ipratropium 3 ml 04/24/20 19:00 04/27/20 07:43 Ipratropium/Albuterol Sulfate 3 Ml Neb NEB 3 ml [id number] TALISHA Administration Apixaban 2.5 mg 04/24/20 21:00 04/27/20 09:28 Apixaban 2.5 Mg Tab PO 2.5 mg BID TALISHA Administration Aspirin 81 mg 04/25/20 09:00 04/27/20 09:27 Aspirin 81 Mg Enteric Coated Tablet PO 81 mg DAILY TALISHA Administration Atorvastatin Calcium 40 mg 04/24/20 21:00 04/26/20 21:05 Atorvastatin Calcium 40 Mg Tab PO 40 mg HS TALISHA Administration Benzonatate 100 mg 04/23/20 21:39 04/27/20 09:28 Benzonatate 100 Mg Cap PO 100 mg Q4H PRN Administration Cough Carvedilol 3.125 mg 04/27/20 10:15 04/27/20 10:54 Carvedilol 6.25 Mg Tab PO 04/27/20 13:00 3.125 mg NOW TALISHA Administration Cholecalciferol 1,000 units 04/25/20 09:00 04/27/20 09:28 Cholecalciferol 1,000 Units (25 Mcg) Tab PO 1,000 units DAILY TALISHA Administration Cyclobenzaprine HCl 5 mg 04/26/20 15:00 04/27/20 09:27 Cyclobenzaprine 10 Mg Tab PO 5 mg TID TALISHA Administration Famotidine 20 mg 04/23/20 21:00 04/27/20 09:27 Famotidine 20 Mg Tab PO 20 mg BID TALISHA Administration Flecainide Acetate 25 mg 04/27/20 10:15 04/27/20 10:31 Flecainide 50 Mg Tab PO 04/27/20 13:00 Not Given NOW [facility] Furosemide 20 mg 04/27/20 10:15 04/27/20 10:55 Furosemide 40 Mg Tab PO 04/27/20 12:00 20 mg NOW [facility] Administration Magnesium Oxide 400 mg 04/27/20 09:00 04/27/20 09:28 Magnesium Oxide 400 Mg Tab PO 400 mg DAILY TALISHA Administration Metformin HCl 500 mg 04/24/20 17:00 04/27/20 09:28 Metformin 500 Mg Tab PO 500 mg BID-WM TALISHA Administration Rifaximin 550 mg 04/24/20 21:00 04/27/20 09:28 Rifaximin 550 Mg Tab PO 550 mg BID TALISHA Administration Senna/Docusate Sodium 2 tab 04/24/20 21:00 04/27/20 09:29 Senokot S 8.6-50 Mg Tab PO Not Given BID [facility] Sodium Chloride 10 ml 04/25/20 09:00 04/27/20 09:29 Flush - Normal Saline 10 Ml Syringe IVF 10 ml Q12HR TALISHA Administration Spironolactone 12.5 mg 04/25/20 09:00 04/27/20 10:54 Spironolactone 25 Mg Tab PO 12.5 mg DAILY TALISHA Administration Hospitalist Exam Vitals: Vital Signs (12 hours) Temp Pulse Resp BP BP Pulse Ox 04/27/20 10:54 112/69 04/27/20 07:43 70 14 96 04/27/20 07:05 98.8 F 16 L 16 129/80 97 04/27/20 04:00 98.2 F 75 22 H 108/57 L 99 04/27/20 00:06 74 12 Weight Weight 124 lb 1.6 oz Eye: PERRL, anicteric sclera Neck: no JVD Heart: RRR, no murmur, no gallops, no rubs, normal peripheral pulses Respiratory: CTAB, no wheezes, no rales, no ronchi, normal chest expansion, no tachypnea, normal percussion Gastrointestinal: soft, non-tender, non-distended, normal bowel sounds, no palpable masses, no hepatomegaly, no splenomegaly, no bruit, no guarding, no rigidity Extremities: no edema Hosp A/P (1) Congestive heart failure due to hypertension Code(s): I11.0 - HYPERTENSIVE HEART DISEASE WITH HEART FAILURE Status: Acute (2) Dyspnea Code(s): R06.00 - DYSPNEA, UNSPECIFIED Status: Acute - Plan Her shortness of breath is multi-factorial as listed below including noncompliance with medications and poor p.o. intake and overall deconditioning. -Etiology i is likely with history of atrial fibrillation and cirrhosis Acute on chronic CHF exacerbation unlikely as she clinically does not look volume overloaded. BNP elevation very likely due to cirrhosis and not likely due to CHF exacerbation -Clinically she does not look volume overload -on the contrary quite fragile and no pitting edema appreciated -Echo showed EF of 60% and diastolic dysfunction; Right ventricular enlargement moderate tricuspid regurgitation -Reduced the diuresis will repeat the BMP tomorrow her creatinine normal range History of interstitial lung disease Possible sarcoidosis but not confirmed. COPD without being exacerbation Hypertension Possible portal hypertension History of hepatitis B-she is taking antiviral Increased abdominal girth--- multi-factorial --Abdominal ultrasound showed only splenomegaly, but no ascites. Pancreas abdominal aorta and IVC appears normal; no hydronephrosis or mass. 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 Questionable atrial fibrillation [id number] score is 4 --pt is on flecainide and eliquis -She is compliant in taking this medications Type 2 diabetes mellitus Malnutrition and cachectic -Moderate due to poor p.o. intake and multiple co-morbidities Deconditioning -Physical therapy evaluation 24 Repeat BNP is significantly reduced from 648 to 187 And she did not receive any aggressive IV diuresis suggesting this may not be due to CHF exacerbation. Possibly cirrhosis contributing to her elevated BNP. Her urine output -700 mL. We do not have her weight today. shortness of breath is multi-factorial with her several co-morbidities including poor p.o. intake. -Physical therapy consult After cardiology input possibly discharge home with home health if needed. 25th Leg cramps Her electrolyte panels including potassium magnesium and calcium in the normal range. 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 She lost about 2 pounds with the very gentle diuresis. Creatinine is stable. Physical therapy evaluation today If she remains improved and stable plan for discharge tomorrow 26th Leg cramps have improved. Thrombocytopenia stable at 123,000. Continue to monitor. Glucose level is increased to 147. Continue insulin regimen. seen the pt w.. student and agree w.. above plan
[2020-04-27] MEDS: Atorvastatin Calcium 40 MG TAB PO SCH (21:12)
[2020-04-28 04:17] LABS: Hemoglobin 12.6 g/dL (12.0-16.0); Platelet Count 126 thou/uL (130-400)
[2020-04-28 04:41] LABS: Anion Gap 13 mmol/L (10-20); BUN (Urea Nitrogen) 13 mg/dL (9.8-20.1); Calc. Creatinine Clearance 70 mL/min (70-130); Carbon Dioxide 25 mmol/L (22-29); Chloride 104 mmol/L (98-107); Glucose 93 mg/dL (70-105); Potassium 3.9 mmol/L (3.5-5.1); Sodium 138 mmol/L (136-145)
[2020-04-28 04:45] LABS: Calcium 8.5 mg/dL (7.8-10.44)
[2020-04-28] MEDS ORDERED: Furosemide 40 MG TAB PO SCH (07:30)
[2020-04-28] MEDS: Famotidine 20 MG TAB PO SCH (09:02)
[2020-04-28] MEDS: metFORMIN 500 MG TAB PO SCH (09:02)
[2020-04-28] MEDS: Magnesium Oxide 400 MG TAB PO SCH (09:02)
[2020-04-28] MEDS: Rifaximin 550 MG TAB PO SCH (09:02)
[2020-04-28] MEDS: Aspirin 81 mg Enteric Coated Tablet PO SCH (09:03)
[2020-04-28] MEDS: Spironolactone 25 MG TAB PO SCH (09:03)
[2020-04-28] MEDS: Carvedilol 6.25 MG TAB PO SCH (09:04)
[2020-04-28] MEDS: Flecainide 50 MG TAB PO SCH (09:04)
[2020-04-28] MEDS: Apixaban 2.5 MG TAB PO SCH (09:07)
[2020-04-28] MEDS: Cyclobenzaprine 10 MG TAB PO SCH (09:07)
[2020-04-28] MEDS: Senokot S 8.6-50 MG TAB PO SCH (09:07)
[2020-04-28] MEDS: Cholecalciferol 1,000 UNITS (25 MCG) TAB PO SCH (09:07)
[2020-04-28] MEDS: Benzonatate 100 MG CAP PO PRN ×2 (09:11→15:13)
--- NOTE | 2020-04-28 09:55 | PQF ---
CLINICAL DOCUMENTATION CLARIFICATION FORM: Dear Dr. Janice Thomas Date: 04/28/20 Please exercise your independent, professional judgment in responding to the clarification form. Clinical indicators are provided on the bottom of this form for your review. Please check appropriate box(es): [ x] Acute Renal Failure (ARF) / Acute Kidney Injury (DIXIE) [ ] No Acute Renal Failure (ARF) / Acute Kidney Injury (DIXIE) [ ] Other diagnosis [ ] Unable to determine In addition, please specify: Present on Admission (POA): [ ] Yes [ ] No [ ] Unable to determine For continuity of documentation, please document condition throughout progress notes and discharge summary. Thank You. To be completed by CDI/Coding staff for physician review: CLINICAL INDICATORS - SIGNS / SYMPTOMS / LABS / RESULTS AND LOCATION IN MR BUN: 14, 17, 16, 12 13 (Lab data, 04/24-) CR: 0.96, 1.19, 1.11 0.99, 0.79, 0.82 (Lab data, 04/24-) GFR: 73, 57, 62, 70, >90, 88 (Lab data, 04/24-) RISK FACTORS / RESULTS AND LOCATION IN MR Acute on chronic diastolic heart failure (H&P 04/24, Cardiology consult 04/25) IV Lasix (MAY, 04/24) PO Lasix (MAY, 04/28) TREATMENTS / RESULTS AND LOCATION IN MR Serial lab monitoring (EMR Lab data 04/24) National [employer] Guidelines for CKD Staging Stage I Kidney damage with normal or increased GFR GFR > 90 Stage II Kidney damage with mildly decreased GFR GFR 60-89 Stage III Kidney damage with moderately decreased GFR GFR 30-59 Stage IV Kidney damage with severely decreased GFR GFR 16-29 Stage V Kidney failure GFR<15 ESRD End Stage Renal Disease On dialysis Acute Renal Failure/Acute Kidney Failure defined as: Increases in SCr by (>) 0.3 mg/dl within 48 hours OR- Increases in SCr by (>) 1.5 times baseline, known or presumed to have occurred within the prior 7 days OR- Urine volume < 0.5 ml/kg/hour for 6 hours (KDIGO supplement 2012 for RIFLE/SIENNA criteria) Thank you! CDS Signature: Yanira Pugh RN, BSN Phone #: [phone] Date: 04/28/20 This is a permanent part of the Medical Record MTDD
[2020-04-28 12:59] VITALS: BP 119/77; TEMP 98.1
--- NOTE | 2020-04-28 14:17 | PDOC.DS.DS ---
Provider Date of Admission: 04/26/20 15:00 Admitting Provider: Reagan Tapia MD Primary Care Physician: Svetlana Kerr Course Hospital Course: 54-year-old female presented with (1) Congestive heart failure due to hypertension Code(s): I11.0 - HYPERTENSIVE HEART DISEASE WITH HEART FAILURE Status: Acute (2) Dyspnea Code(s): R06.00 - DYSPNEA, UNSPECIFIED Status: Acute Her shortness of breath is multi-factorial as listed below including noncompliance with medications and poor p.o. intake and overall deconditioning. -Etiology i is likely with history of atrial fibrillation and cirrhosis Acute on chronic CHF exacerbation unlikely as she clinically does not look vo lume overloaded. BNP elevation very likely due to cirrhosis and not likely due to CHF exacerbation -Clinically she does not look volume overload -on the contrary quite fragile and no pitting edema appreciated -Echo showed EF of 60% and diastolic dysfunction; Right ventricular enlargement moderate tricuspid regurgitation History of interstitial lung disease Possible sarcoidosis but not confirmed. COPD without being exacerbation Hypertension Possible portal hypertension History of hepatitis B-she is taking antiviral Increased abdominal girth--- multi-factorial --Abdominal ultrasound showed only splenomegaly, but no ascites. Pancreas abdominal aorta and IVC appears normal; no hydronephrosis or mass. 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 Questionable atrial fibrillation [id number] score is 4 --pt is on flecainide and eliquis -She is compliant in taking this medications Type 2 diabetes mellitus Malnutrition and cachectic -Moderate due to poor p.o. intake and multiple co-morbidities Deconditioning -Physical therapy evaluation Repeat BNP is significantly reduced from 648 to 187 And she did not receive any aggressive IV diuresis suggesting this may not be due to CHF exacerbation. Possibly cirrhosis contributing to her elevated BNP. Her urine output -700 mL. We do not have her weight today. shortness of breath is multi-factorial with her several co-morbidities including poor p.o. intake. -Physical therapy consult After cardiology input possibly discharge home with home health if needed. Please note that her blood pressure was consistently low that I need to reduce her home BP medications and it was reconciled as given in the med rec. Patient is also informed that she needs to follow-up with the new medication list rather than what she has at home. Patient expressed her understanding. She is clinically stable enough to be discharged home today. Discharge time over 30 minutes. Resuscitation Status: 04/23/20 17:38 Resuscitation Status Routine Resuscitation Status: FULL: Full Resuscitation Lab Results: 04/28/20 03:37 04/28/20 09:45 Abnormal Lab Results - Last 48 hrs 04/27/20 04:17: Plt Count 123 L 04/28/20 03:37: Plt Count 126 L Vitals: Vital Signs (12 hours) Temp Pulse Resp BP BP Pulse Ox 04/28/20 12:55 98.1 F 80 17 119/77 97 04/28/20 09:04 132/91 H 04/28/20 09:00 128/78 04/28/20 07:39 70 14 97 04/28/20 07:20 98.5 F 17 L 16 131/86 92 L 04/28/20 03:17 98.3 F 73 18 119/72 99 Weight Weight 126 lb 1.6 oz Physical Exam: The patient was seen and examined on the day of discharge. Problem (1) Congestive heart failure due to hypertension Code(s): I11.0 - HYPERTENSIVE HEART DISEASE WITH HEART FAILURE Status: Acute (2) Dyspnea Code(s): R06.00 - DYSPNEA, UNSPECIFIED Status: Acute Plan Prescriptions: Carvedilol [Coreg] 3.125 mg PO BID 30 Days #60 tablet Cyclobenzaprine [Flexeril] 5 mg PO TID PRN 20 Days #20 tab PRN Reason: muscle spasm Furosemide [Lasix] 20 mg PO DAILY 30 Days #30 tab Lisinopril 10 mg PO DAILY 30 Days #30 tablet Cholecalciferol [Vitamin D3] 1,000 units PO DAILY 30 Days #30 tab Home Medications: Medication Instructions Recorded Confirmed Type Albuterol Sulfate [Proair HFA] 2 puff INH Q4HR PRN 11/05/13 04/23/20 History Paroxetine HCl [PARoxetine HCl] 20 mg PO DAILY 10/19/15 04/23/20 History Mometasone/Formoterol 200/5 2 puff INH BID-RT #1 aer 03/04/18 04/23/20 Rx [Dulera 200 Mcg/5 Mcg Inhaler] metFORMIN [Glucophage] 500 mg PO BID-WM #60 tab 03/04/18 04/23/20 Rx Ipratropium/Albuterol Sulfate 3 ml NEB [id number] #30 neb 03/24/18 04/23/20 Rx [DuoNeb] Apixaban [Eliquis] 2.5 mg PO BID 10/08/19 04/23/20 History Atorvastatin Calcium [Lipitor] 40 mg PO HS 10/08/19 04/23/20 History Carvedilol [Coreg] 12.5 mg PO BID 10/08/19 04/23/20 History Entecavir 1 mg PO DAILY 10/08/19 04/23/20 History Flecainide [Tambocor] 50 mg PO BID 10/08/19 04/23/20 History Rifaximin [Xifaxan] 550 mg PO BID 10/08/19 04/23/20 History Ferrous Sulfate 325 mg PO DAILY #30 tab 10/12/19 04/23/20 Rx Aspirin [Aspirin EC] 81 mg PO DAILY 04/23/20 04/23/20 History Carvedilol [Coreg] 3.125 mg PO BID 30 Days #60 tablet 04/28/20 Rx Cholecalciferol [Vitamin D3] 1,000 units PO DAILY 30 Days #30 04/28/20 Rx tab Cyclobenzaprine [Flexeril] 5 mg PO TID PRN 20 Days #20 tab 04/28/20 Rx Furosemide [Lasix] 20 mg PO DAILY 30 Days #30 tab 04/28/20 Rx Lisinopril 10 mg PO DAILY 30 Days #30 tablet 04/28/20 Rx Allergies: No Known Allergies Allergy (Verified 04/23/20 19:37) Referrals: Cardiac Rehab - [place] [Outside] - 7 Days (Your doctor has ordered outpatient cardiac rehab for you to begin within 1-2 weeks after you go home from the hospital. The location nearest to you is the [facility]. They will call you in 3-5 days to get you scheduled for your evaluation. If you do not receive a call, please reach out to them at [phone] and request an appointment. Should you have any trouble or need assistance, please call the cardiac rehab main line in [place] at [phone]. ) Karlo Mike MD [Active] - 2-3 Weeks (Please call the office and schedule a follow up appointment) Svetlana Kerr MD [Primary Care Provider] - 05/05/20 10:00 am (This is your hospital follow up appointment. Please bring all of your discharge paperwork and medications with you to the appointment.) Disposition: HOME Quality CORE MEASURES:: N/A
== END 2020-04-28 15:30 | disposition home or self-care (01) | DRG 432 ==
LOC: ERS 14:22 → INTOOBSV 16:33 → 2NO 16:33 → OBSVTOIN 04-26 15:00
PROVIDERS: ADMIT Internal Medicine; ATTEND Internal Medicine
DX: K74.60 Unspecified cirrhosis of liver (principal); I50.33 Acute on chronic diastolic (congestive) heart failure; J96.00 Acute respiratory failure, unspecified whether with hypoxia or hypercapnia; J84.9 Interstitial pulmonary disease, unspecified; R64 Cachexia; E44.0 Moderate protein-calorie malnutrition; N17.9 Acute kidney failure, unspecified; I11.0 Hypertensive heart disease with heart failure; Z20.822 Contact with and (suspected) exposure to COVID-19; E11.9 Type 2 diabetes mellitus without complications; I48.0 Paroxysmal atrial fibrillation; J44.9 Chronic obstructive pulmonary disease, unspecified; E78.00 Pure hypercholesterolemia, unspecified; E78.5 Hyperlipidemia, unspecified; F17.210 Nicotine dependence, cigarettes, uncomplicated; D69.6 Thrombocytopenia, unspecified; Z86.19 Personal history of other infectious and parasitic diseases; Z79.84 Long term (current) use of oral hypoglycemic drugs; Z79.82 Long term (current) use of aspirin; Z79.51 Long term (current) use of inhaled steroids; Z79.899 Other long term (current) drug therapy; Z91.14 Patient's other noncompliance with medication regimen
CPT/HCPCS: 36415; 36416; 80048; 82306; 82607; 82746; 83735; 83880; 84425; 84443; 85014; 85018; 85025; 85049; 93005; 93306; 93798; 93975; 94640; 96360; 96376; 97139; G0378; J1940; J7620

== ENCOUNTER 2020-08-08 23:09 | Inpatient (IN) | payer BC ==
[2020-08-09 03:04] VITALS: BMI 20.4
[2020-08-09] MEDS ORDERED: Dextrose 50% Abboject 50 ML SYRINGE SLOW IVP PRN (04:25)
[2020-08-09] MEDS ORDERED: Dextrose 5% in Water 1,000 ML IV PRN (04:25)
[2020-08-09] MEDS ORDERED: Potassium Chloride 20 MEQ TAB PO SCH (04:30)
[2020-08-09] MEDS: Furosemide 40 MG/4 ML VIAL SLOW IVP SCH ×2 (05:40→13:48)
[2020-08-09] MEDS: HumaLOG 300 UNITS/3 ML VIAL SC PRN ×2 (05:41→21:06)
[2020-08-09 05:54] LABS: Anion Gap 16 mmol/L (10-20); BUN (Urea Nitrogen) 14 mg/dL (9.8-20.1); Calc. Creatinine Clearance 44 mL/min (70-130); Calcium 8.9 mg/dL (7.8-10.44); Carbon Dioxide 27 mmol/L (22-29); Chloride 101 mmol/L (98-107); Glucose 216 mg/dL (70-105); Potassium 3.5 mmol/L (3.5-5.1); Sodium 140 mmol/L (136-145)
[2020-08-09 06:07] LABS: Hemoglobin 13.8 g/dL (12.0-16.0); Mean Corpuscular HGB CONC 34.6 g/dL (32.0-36.0); Mean Corpuscular Volume 80.9 fL (78.0-98.0); RBC Distribution Width 15.8 % (11.5-14.5); Red Blood Cell (RBC) Count 4.92 mill/uL (4.20-5.40); White Blood Cell (WBC) Count 5.5 thou/uL (4.8-10.8)
[2020-08-09 06:18] LABS: Eosinophils 4 % (0-10); Lymphocytes 19 % (21-51); MDiff Complete? YES; Mean Platelet Volume 9.7 fL (7.4-10.4); Monocytes 11 % (0-10); Neutrophil 66 % (42-75); Platelet Count 107 thou/uL (130-400); Platelet Morphology Comment Appears Decreased; Target Cells SLIGHT = 2-5 cells (100X) (0-1/hpf)
[2020-08-09] MEDS ORDERED: ENTECAVIR 1 MG PO SCH (09:00)
[2020-08-09] MEDS ORDERED: Rifaximin 550 MG TAB PO SCH (09:00)
[2020-08-09] MEDS ORDERED: Carvedilol 6.25 MG TAB PO SCH (10:56)
[2020-08-09] MEDS ORDERED: Cholecalciferol 1,000 UNITS (25 MCG) TAB PO SCH (10:56)
[2020-08-09] MEDS ORDERED: Non-Formulary Item 1 EACH (Cyclobenzaprine Hcl [Cyclobenzaprine Hcl] 5 MG Tablet) PO PRN (10:56)
[2020-08-09] MEDS ORDERED: Non-Formulary Item 1 EACH (Albuterol Sulfate [Proair Hfa] 8.5 GM Hfa.Aer.Ad) INH PRN (10:56)
[2020-08-09] MEDS ORDERED: Albuterol 200 PUFF (6.7GM INHALER) INH PRN (11:08)
[2020-08-09] MEDS ORDERED: Cyclobenzaprine 10 MG TAB PO PRN (11:09)
[2020-08-09] MEDS ORDERED: Carvedilol 3.125 MG TAB PO SCH (11:15)
[2020-08-09] MEDS: glipiZIDE 5 MG TAB PO SCH ×2 (12:01→21:01)
[2020-08-09] MEDS: PARoxetine 20 MG TAB PO SCH (12:01)
[2020-08-09] MEDS: Flecainide 50 MG TAB PO SCH ×2 (12:01→21:03)
[2020-08-09] MEDS: Aspirin 81 mg Enteric Coated Tablet PO SCH (12:01)
[2020-08-09] MEDS: Lisinopril 2.5 MG TAB PO SCH (12:01)
[2020-08-09] MEDS ORDERED: methylPREDNISolone Sod Succ/PF 125 MG/2 ML VIAL IVP SCH (13:03)
[2020-08-09] MEDS: methylPREDNISolone Sod Succ 40 MG VIAL IVP SCH ×2 (13:44→19:27)
[2020-08-09] MEDS ORDERED: Albuterol Sulfate 2.5 mg/3 ml Neb EZPAP PRN (15:06)
[2020-08-09] MEDS: Mometasone 200 MCG/Formoterol 5 MCG 120 PUFF INHALER INH SCH (18:23)
[2020-08-09] MEDS: Acetaminophen 325 MG TAB PO PRN (19:25)
[2020-08-09] MEDS: Bacteriostatic Water 30 ML VIAL FS PRN (19:27)
[2020-08-09] MEDS: Carvedilol 3.125 MG TAB PO SCH (21:02)
[2020-08-09] MEDS: Atorvastatin Calcium 40 MG TAB PO SCH (21:02)
[2020-08-09] MEDS: Rifaximin 550 MG TAB PO SCH (21:03)
[2020-08-09] MEDS: Apixaban 2.5 MG TAB PO SCH (21:04)
[2020-08-10] MEDS: methylPREDNISolone Sod Succ 40 MG VIAL IVP SCH ×3 (03:15→15:34)
[2020-08-10 05:45] LABS: Hemoglobin A1c 5.9 % (4.0-6.0)
[2020-08-10 05:50] LABS: #Lymphocytes 0.6 thou/uL (1.20-3.40); #Monocytes 0.3 thou/uL (0.11-0.59); #Neutrophils 2.9 thou/uL (1.40-6.50); %Basophils 0.3 % (0.0-1.0); %Eosinophils 0.2 % (0.0-10.0); %Lymphocytes 15.4 % (21.0-51.0); %Monocytes 6.7 % (0.0-10.0); %Neutrophils 77.3 % (42.0-75.0); Hemoglobin 13.9 g/dL (12.0-16.0); Mean Corpuscular HGB CONC 32.3 g/dL (32.0-36.0); Mean Corpuscular Hemoglobin 26.5 pg (27.0-31.0); Mean Corpuscular Volume 81.9 fL (78.0-98.0); Mean Platelet Volume 9.4 fL (7.4-10.4); Platelet Count 110 thou/uL (130-400); RBC Distribution Width 15.8 % (11.5-14.5); Red Blood Cell (RBC) Count 5.27 mill/uL (4.20-5.40); White Blood Cell (WBC) Count 3.8 thou/uL (4.8-10.8)
[2020-08-10] MEDS: HumaLOG 300 UNITS/3 ML VIAL SC PRN ×4 (06:00→21:24)
[2020-08-10] MEDS: Furosemide 40 MG/4 ML VIAL SLOW IVP SCH ×2 (06:00→15:34)
[2020-08-10 06:02] LABS: Anion Gap 12 mmol/L (10-20); BUN (Urea Nitrogen) 21 mg/dL (9.8-20.1); Calc. Creatinine Clearance 50 mL/min (70-130); Calcium 9.2 mg/dL (7.8-10.44); Carbon Dioxide 31 mmol/L (22-29); Cardiac Risk 3.1 (Less than 4.5); Chloride 97 mmol/L (98-107); Cholesterol 170 mg/dl (< 200 Desired); Glucose 219 mg/dL (70-105); HDL Cholesterol 55 mg/dL (>60 Neg Risk); LDL Cholesterol, Calculated 106 mg/dL; Potassium 3.4 mmol/L (3.5-5.1); Sodium 137 mmol/L (136-145); Triglycerides 43 mg/dL (Less than 150)
[2020-08-10] MEDS: Mometasone 200 MCG/Formoterol 5 MCG 120 PUFF INHALER INH SCH ×2 (07:27→18:49)
[2020-08-10] MEDS ORDERED: Iopamidol 370 76% 100 ML VIAL ONE (08:54)
[2020-08-10] MEDS ORDERED: Non-Formulary Item 1 EACH (Ferrous Sulfate [Ferrous Sulfate] 325 MG Tab) PO SCH (09:00)
[2020-08-10] MEDS: Aspirin 81 mg Enteric Coated Tablet PO SCH (09:02)
[2020-08-10] MEDS: Lisinopril 2.5 MG TAB PO SCH (09:03)
[2020-08-10] MEDS: glipiZIDE 5 MG TAB PO SCH ×2 (09:03→20:50)
[2020-08-10] MEDS: Flecainide 50 MG TAB PO SCH ×2 (09:03→20:50)
[2020-08-10] MEDS: Ferrous Sulfate 325 MG TAB PO SCH (09:04)
[2020-08-10] MEDS: Acetaminophen 325 MG TAB PO PRN ×3 (09:04→20:51)
[2020-08-10] MEDS: PARoxetine 20 MG TAB PO SCH (09:05)
[2020-08-10] MEDS: Cholecalciferol 1,000 UNITS (25 MCG) TAB PO SCH (09:06)
[2020-08-10] MEDS: Carvedilol 3.125 MG TAB PO SCH ×2 (09:06→20:50)
[2020-08-10] MEDS: Rifaximin 550 MG TAB PO SCH ×2 (09:11→20:48)
[2020-08-10] MEDS: Apixaban 2.5 MG TAB PO SCH ×2 (09:11→20:48)
[2020-08-10] MEDS ORDERED: Doxycycline 100 MG CAP PO SCH (16:15)
[2020-08-10] MEDS ORDERED: guaiFENesin ER 600 MG TAB PO SCH (19:45)
[2020-08-10] MEDS: Atorvastatin Calcium 40 MG TAB PO SCH (20:49)
[2020-08-10] MEDS: Doxycycline 100 MG CAP PO SCH (20:49)
[2020-08-10] MEDS: Senokot S 8.6-50 MG TAB PO PRN (21:23)
[2020-08-11] MEDS: GUAIFENESIN SF SOLN 200 MG/10 ML UDCUP PO PRN ×2 (02:31→08:55)
[2020-08-11] MEDS: Mometasone 200 MCG/Formoterol 5 MCG 120 PUFF INHALER INH SCH ×2 (07:29→19:01)
[2020-08-11] MEDS: PARoxetine 20 MG TAB PO SCH (08:53)
[2020-08-11] MEDS: Carvedilol 3.125 MG TAB PO SCH ×3 (08:53→22:13)
[2020-08-11] MEDS: Apixaban 2.5 MG TAB PO SCH ×2 (08:53→22:13)
[2020-08-11] MEDS: Ferrous Sulfate 325 MG TAB PO SCH (08:53)
[2020-08-11] MEDS: Cholecalciferol 1,000 UNITS (25 MCG) TAB PO SCH (08:53)
[2020-08-11] MEDS: Doxycycline 100 MG CAP PO SCH ×2 (08:53→22:13)
[2020-08-11] MEDS: Furosemide 40 MG TAB PO SCH (08:53)
[2020-08-11] MEDS: guaiFENesin ER 600 MG TAB PO SCH ×2 (08:53→22:13)
[2020-08-11] MEDS: predniSONE 20 MG TAB PO SCH (08:53)
[2020-08-11] MEDS: Flecainide 50 MG TAB PO SCH ×2 (08:54→22:13)
[2020-08-11] MEDS: Aspirin 81 mg Enteric Coated Tablet PO SCH (08:54)
[2020-08-11] MEDS: glipiZIDE 5 MG TAB PO SCH ×2 (08:54→22:13)
[2020-08-11] MEDS: Rifaximin 550 MG TAB PO SCH ×2 (08:54→22:12)
[2020-08-11] MEDS: Lisinopril 2.5 MG TAB PO SCH (08:54)
[2020-08-11 09:19] LABS: Anion Gap 13 mmol/L (10-20); BUN (Urea Nitrogen) 24 mg/dL (9.8-20.1); Calc. Creatinine Clearance 48 mL/min (70-130); Carbon Dioxide 33 mmol/L (22-29); Chloride 98 mmol/L (98-107); Potassium 3.1 mmol/L (3.5-5.1); Sodium 141 mmol/L (136-145)
[2020-08-11 09:20] LABS: Calcium 9.3 mg/dL (7.8-10.44); Glucose 82 mg/dL (70-105)
[2020-08-11] MEDS ORDERED: Potassium Chloride 20 MEQ TAB PO SCH (11:15)
[2020-08-11] MEDS: methylPREDNISolone Sod Succ 40 MG VIAL IVP SCH ×2 (11:29→17:02)
[2020-08-11] MEDS: Bacteriostatic Water 30 ML VIAL FS PRN (11:31)
[2020-08-11] MEDS: HumaLOG 300 UNITS/3 ML VIAL SC PRN ×2 (16:59→22:39)
[2020-08-11] MEDS: Atorvastatin Calcium 40 MG TAB PO SCH (22:13)
[2020-08-12] MEDS: methylPREDNISolone Sod Succ 40 MG VIAL IVP SCH ×3 (01:21→18:45)
[2020-08-12 05:22] LABS: Anion Gap 14 mmol/L (10-20); BUN (Urea Nitrogen) 24 mg/dL (9.8-20.1); Calc. Creatinine Clearance 56 mL/min (70-130); Calcium 8.7 mg/dL (7.8-10.44); Carbon Dioxide 29 mmol/L (22-29); Chloride 100 mmol/L (98-107); Glucose 193 mg/dL (70-105); Sodium 139 mmol/L (136-145)
[2020-08-12] MEDS: Mometasone 200 MCG/Formoterol 5 MCG 120 PUFF INHALER INH SCH ×2 (06:28→18:31)
[2020-08-12] MEDS: HumaLOG 300 UNITS/3 ML VIAL SC PRN ×3 (06:54→17:08)
[2020-08-12] MEDS: Furosemide 40 MG TAB PO SCH (06:54)
[2020-08-12] MEDS: Rifaximin 550 MG TAB PO SCH ×2 (09:11→21:46)
[2020-08-12] MEDS: Apixaban 2.5 MG TAB PO SCH ×2 (09:11→21:46)
[2020-08-12] MEDS: Aspirin 81 mg Enteric Coated Tablet PO SCH (09:12)
[2020-08-12] MEDS: Doxycycline 100 MG CAP PO SCH ×2 (09:12→21:46)
[2020-08-12] MEDS: glipiZIDE 5 MG TAB PO SCH ×2 (09:12→21:46)
[2020-08-12] MEDS: Flecainide 50 MG TAB PO SCH ×2 (09:12→21:46)
[2020-08-12] MEDS: PARoxetine 20 MG TAB PO SCH (09:12)
[2020-08-12] MEDS: Ferrous Sulfate 325 MG TAB PO SCH (09:12)
[2020-08-12] MEDS: Carvedilol 3.125 MG TAB PO SCH ×3 (09:12→21:46)
[2020-08-12] MEDS: guaiFENesin ER 600 MG TAB PO SCH ×2 (09:12→21:46)
[2020-08-12] MEDS: Cholecalciferol 1,000 UNITS (25 MCG) TAB PO SCH (09:13)
[2020-08-12] MEDS: predniSONE 20 MG TAB PO SCH (10:22)
[2020-08-12 12:48] LABS: Actual Bicarbonate (HCO3a) 29.7 mEq/L (22-28); Analyzer IN Cardio OR; Base Excess (BEa) 4.6 mEq/L (-2.0 to +3.0); CO2 Tension 45.5 mmHg (35.0-45.0); Calcium, Ionized (arterial) 1.16 mmol/L (1.12-1.30); Carboxyhemoglobin (COHb) 0.8 gm% (0.0-3.0); Hemoglobin (Hb) 14.6 g/dL (12.0-16.0); O2 Tension (PaO2), arterial 72.8 mmHg (80.0-100.0); Potassium - ABG Lab 3.49 mmol/L (3.70-5.30); Puncture Site RBA; pH, Arterial 7.43 (7.35-7.45)
[2020-08-12] MEDS: GUAIFENESIN SF SOLN 200 MG/10 ML UDCUP PO PRN (18:45)
[2020-08-12] MEDS: Senokot S 8.6-50 MG TAB PO PRN (18:45)
[2020-08-12] MEDS: Atorvastatin Calcium 40 MG TAB PO SCH (21:46)
[2020-08-13] MEDS ORDERED: traMADol HCl 50 MG TAB PO PRN (01:21)
[2020-08-13] MEDS: Mometasone 200 MCG/Formoterol 5 MCG 120 PUFF INHALER INH SCH ×2 (06:57→18:26)
[2020-08-13] MEDS: methylPREDNISolone Sod Succ 40 MG VIAL IVP SCH ×3 (07:03→18:06)
[2020-08-13] MEDS: HumaLOG 300 UNITS/3 ML VIAL SC PRN ×4 (07:03→21:07)
[2020-08-13] MEDS: Apixaban 2.5 MG TAB PO SCH ×2 (08:36→21:05)
[2020-08-13] MEDS: Carvedilol 3.125 MG TAB PO SCH ×3 (08:36→21:06)
[2020-08-13] MEDS: Aspirin 81 mg Enteric Coated Tablet PO SCH (08:36)
[2020-08-13] MEDS: Furosemide 40 MG TAB PO SCH (08:36)
[2020-08-13] MEDS: glipiZIDE 5 MG TAB PO SCH ×2 (08:36→21:05)
[2020-08-13] MEDS: guaiFENesin ER 600 MG TAB PO SCH ×2 (08:37→21:06)
[2020-08-13] MEDS: Cholecalciferol 1,000 UNITS (25 MCG) TAB PO SCH (08:37)
[2020-08-13] MEDS: PARoxetine 20 MG TAB PO SCH (08:37)
[2020-08-13] MEDS: Doxycycline 100 MG CAP PO SCH ×2 (08:37→21:05)
[2020-08-13] MEDS: Flecainide 50 MG TAB PO SCH ×2 (08:37→21:06)
[2020-08-13] MEDS: Ferrous Sulfate 325 MG TAB PO SCH (08:37)
[2020-08-13] MEDS: Rifaximin 550 MG TAB PO SCH ×2 (08:38→21:07)
[2020-08-13] MEDS ORDERED: Albuterol Sulfate 1.25 MG/3 ML NEB NEB PRN (09:03)
[2020-08-13] MEDS: ENTECAVIR 1 MG PO SCH ×4 (09:10→10:12)
[2020-08-13] MEDS: Atorvastatin Calcium 40 MG TAB PO SCH (21:06)
[2020-08-13] MEDS ORDERED: Lantus 1000 UNITS/10 ML VIAL SC SCH (22:00)
[2020-08-14] MEDS: Bacteriostatic Water 30 ML VIAL FS PRN ×2 (00:32→06:35)
[2020-08-14] MEDS: methylPREDNISolone Sod Succ 40 MG VIAL IVP SCH ×4 (00:32→20:00)
[2020-08-14 05:21] LABS: Anion Gap 10 mmol/L (10-20); BUN (Urea Nitrogen) 26 mg/dL (9.8-20.1); Calc. Creatinine Clearance 54 mL/min (70-130); Calcium 8.8 mg/dL (7.8-10.44); Carbon Dioxide 28 mmol/L (22-29); Chloride 101 mmol/L (98-107); Glucose 344 mg/dL (70-105); Sodium 135 mmol/L (136-145)
[2020-08-14] MEDS: HumaLOG 300 UNITS/3 ML VIAL SC PRN ×4 (06:34→21:18)
[2020-08-14] MEDS: Mometasone 200 MCG/Formoterol 5 MCG 120 PUFF INHALER INH SCH ×2 (07:10→18:08)
[2020-08-14] MEDS: Flecainide 50 MG TAB PO SCH ×2 (08:11→21:21)
[2020-08-14] MEDS: Ferrous Sulfate 325 MG TAB PO SCH (08:11)
[2020-08-14] MEDS: Furosemide 40 MG TAB PO SCH (08:11)
[2020-08-14] MEDS: Carvedilol 3.125 MG TAB PO SCH ×2 (08:11→15:02)
[2020-08-14] MEDS: glipiZIDE 5 MG TAB PO SCH ×2 (08:12→21:20)
[2020-08-14] MEDS: Doxycycline 100 MG CAP PO SCH ×2 (08:12→21:21)
[2020-08-14] MEDS: Cholecalciferol 1,000 UNITS (25 MCG) TAB PO SCH (08:12)
[2020-08-14] MEDS: Rifaximin 550 MG TAB PO SCH ×2 (08:12→21:21)
[2020-08-14] MEDS: PARoxetine 20 MG TAB PO SCH (08:12)
[2020-08-14] MEDS: Aspirin 81 mg Enteric Coated Tablet PO SCH (08:12)
[2020-08-14] MEDS: guaiFENesin ER 600 MG TAB PO SCH ×2 (08:12→21:20)
[2020-08-14] MEDS: ENTECAVIR 1 MG PO SCH (08:14)
[2020-08-14] MEDS: Acetaminophen 325 MG TAB PO PRN (08:21)
[2020-08-14] MEDS: Apixaban 2.5 MG TAB PO SCH ×2 (08:22→21:20)
[2020-08-14] MEDS: Carvedilol 6.25 MG TAB PO SCH (17:17)
[2020-08-14] MEDS: GUAIFENESIN SF SOLN 200 MG/10 ML UDCUP PO PRN (18:11)
[2020-08-14] MEDS ORDERED: Lantus 1000 UNITS/10 ML VIAL SC SCH (21:00)
[2020-08-14] MEDS: Lantus 1000 UNITS/10 ML VIAL SC SCH (21:19)
[2020-08-14] MEDS: Atorvastatin Calcium 40 MG TAB PO SCH (21:21)
[2020-08-15] MEDS: methylPREDNISolone Sod Succ 40 MG VIAL IVP SCH ×3 (00:51→13:23)
[2020-08-15 05:42] LABS: Hemoglobin 15.4 g/dL (12.0-16.0); Mean Corpuscular HGB CONC 33.7 g/dL (32.0-36.0); Mean Corpuscular Hemoglobin 27.6 pg (27.0-31.0); Mean Corpuscular Volume 81.9 fL (78.0-98.0); Platelet Count 128 thou/uL (130-400); RBC Distribution Width 15.5 % (11.5-14.5); Red Blood Cell (RBC) Count 5.58 mill/uL (4.20-5.40)
[2020-08-15 06:13] LABS: #Lymphocytes 0.5 thou/uL (1.20-3.40); #Monocytes 0.5 thou/uL (0.11-0.59); #Neutrophils 9.5 thou/uL (1.40-6.50); %Basophils 0.3 % (0.0-1.0); %Eosinophils 0.1 % (0.0-10.0); %Lymphocytes 4.4 % (21.0-51.0); %Monocytes 4.6 % (0.0-10.0); %Neutrophils 90.7 % (42.0-75.0); White Blood Cell (WBC) Count 10.5 thou/uL (4.8-10.8)
[2020-08-15] MEDS: HumaLOG 300 UNITS/3 ML VIAL SC PRN ×3 (06:13→17:01)
[2020-08-15] MEDS: Mometasone 200 MCG/Formoterol 5 MCG 120 PUFF INHALER INH SCH ×2 (07:45→18:32)
[2020-08-15] MEDS: Flecainide 50 MG TAB PO SCH ×2 (08:20→22:43)
[2020-08-15] MEDS: Doxycycline 100 MG CAP PO SCH ×2 (08:20→22:44)
[2020-08-15] MEDS: Furosemide 40 MG TAB PO SCH (08:20)
[2020-08-15] MEDS: Cholecalciferol 1,000 UNITS (25 MCG) TAB PO SCH (08:20)
[2020-08-15] MEDS: PARoxetine 20 MG TAB PO SCH (08:20)
[2020-08-15] MEDS: glipiZIDE 5 MG TAB PO SCH ×2 (08:20→22:44)
[2020-08-15] MEDS: Ferrous Sulfate 325 MG TAB PO SCH (08:20)
[2020-08-15] MEDS: Carvedilol 6.25 MG TAB PO SCH ×2 (08:20→16:12)
[2020-08-15] MEDS: Aspirin 81 mg Enteric Coated Tablet PO SCH (08:20)
[2020-08-15] MEDS: guaiFENesin ER 600 MG TAB PO SCH ×2 (08:20→22:44)
[2020-08-15] MEDS: ENTECAVIR 1 MG PO SCH (08:21)
[2020-08-15] MEDS: Rifaximin 550 MG TAB PO SCH ×2 (08:22→22:44)
[2020-08-15] MEDS: Apixaban 2.5 MG TAB PO SCH ×2 (08:27→22:43)
[2020-08-15] MEDS: Acetaminophen 325 MG TAB PO PRN (08:27)
[2020-08-15] MEDS ORDERED: predniSONE 20 MG TAB PO SCH (15:30)
[2020-08-15] MEDS: GUAIFENESIN SF SOLN 200 MG/10 ML UDCUP PO PRN (16:15)
[2020-08-15] MEDS: Atorvastatin Calcium 40 MG TAB PO SCH (22:43)
[2020-08-15] MEDS: Lantus 1000 UNITS/10 ML VIAL SC SCH (22:45)
[2020-08-16] MEDS: HumaLOG 300 UNITS/3 ML VIAL SC PRN ×2 (06:01→11:37)
[2020-08-16] MEDS: Mometasone 200 MCG/Formoterol 5 MCG 120 PUFF INHALER INH SCH (06:35)
[2020-08-16] MEDS ORDERED: predniSONE 20 MG TAB PO SCH (08:00)
[2020-08-16] MEDS: Carvedilol 6.25 MG TAB PO SCH (08:09)
[2020-08-16] MEDS: Furosemide 40 MG TAB PO SCH (08:09)
[2020-08-16] MEDS: Rifaximin 550 MG TAB PO SCH (08:10)
[2020-08-16] MEDS: Doxycycline 100 MG CAP PO SCH (08:10)
[2020-08-16] MEDS: Cholecalciferol 1,000 UNITS (25 MCG) TAB PO SCH (08:10)
[2020-08-16] MEDS: PARoxetine 20 MG TAB PO SCH (08:10)
[2020-08-16] MEDS: Aspirin 81 mg Enteric Coated Tablet PO SCH (08:10)
[2020-08-16] MEDS: guaiFENesin ER 600 MG TAB PO SCH (08:10)
[2020-08-16] MEDS: glipiZIDE 5 MG TAB PO SCH (08:10)
[2020-08-16] MEDS: Ferrous Sulfate 325 MG TAB PO SCH (08:10)
[2020-08-16] MEDS: Flecainide 50 MG TAB PO SCH (08:10)
[2020-08-16] MEDS: Apixaban 2.5 MG TAB PO SCH (08:10)
[2020-08-16] MEDS: Acetaminophen 325 MG TAB PO PRN (08:11)
[2020-08-16] MEDS: ENTECAVIR 1 MG PO SCH (08:11)
[2020-08-16] MEDS ORDERED: Furosemide 40 MG/4 ML VIAL SLOW IVP SCH (09:15)
[2020-08-16 11:25] VITALS: BP 119/76; TEMP 98.1
== END 2020-08-16 15:15 | disposition home or self-care (01) | DRG 291 ==
LOC: 2SE 23:09
PROVIDERS: ADMIT Internal Medicine; ATTEND Family Medicine
DX: I13.0 Hypertensive heart and chronic kidney disease with heart failure and stage 1 through stage 4 chronic kidney disease, or unspecified chronic kidney disease (principal); J96.01 Acute respiratory failure with hypoxia; I50.23 Acute on chronic systolic (congestive) heart failure; J44.1 Chronic obstructive pulmonary disease with (acute) exacerbation; J84.9 Interstitial pulmonary disease, unspecified; N17.9 Acute kidney failure, unspecified; Z79.82 Long term (current) use of aspirin; Z79.84 Long term (current) use of oral hypoglycemic drugs; E78.5 Hyperlipidemia, unspecified; Z86.19 Personal history of other infectious and parasitic diseases; Z90.710 Acquired absence of both cervix and uterus; J84.10 Pulmonary fibrosis, unspecified; Z87.891 Personal history of nicotine dependence; Z83.3 Family history of diabetes mellitus; Z80.8 Family history of malignant neoplasm of other organs or systems; Z84.1 Family history of disorders of kidney and ureter; E87.6 Hypokalemia; I50.810 Right heart failure, unspecified; E11.22 Type 2 diabetes mellitus with diabetic chronic kidney disease; N18.2 Chronic kidney disease, stage 2 (mild); I42.8 Other cardiomyopathies
CPT/HCPCS: 36415; 36416; 36600; 71045; 71275; 80048; 80061; 82805; 83036; 83735; 83880; 85025; 93306; 93798; 94150; 94640; J1815; J1940; J2920; J7512; J7620; Q9967

== ENCOUNTER 2020-12-18 08:52 | Inpatient (IN) | payer BC ==
[2020-12-18] MEDS ORDERED: Senokot S 8.6-50 MG TAB PO PRN (09:18)
[2020-12-18] MEDS ORDERED: Acetaminophen 325 MG TAB PO PRN (09:18)
[2020-12-18 09:20] VITALS: BMI 18.8
[2020-12-18] MEDS ORDERED: Ondansetron PF 4 MG/2 ML Vial IVP PRN (09:54)
[2020-12-18] MEDS ORDERED: Ondansetron ODT 4 MG TAB PO PRN (09:55)
[2020-12-18] MEDS ORDERED: Aspirin 325 MG TAB PO SCH (10:00)
[2020-12-18] MEDS ORDERED: Dextrose 50% Abboject 50 ML SYRINGE SLOW IVP PRN (11:03)
[2020-12-18] MEDS ORDERED: Dextrose 5% in Water 1,000 ML IV PRN (11:03)
[2020-12-18 11:31] LABS: ALT (SGPT) 16 U/L (8-55); AST (SGOT) 31 U/L (5-34); Albumin 3.7 g/dL (3.5-5.0); Alkaline Phosphatase 154 U/L (40-110); Anion Gap 16 mmol/L (10-20); BUN (Urea Nitrogen) 15 mg/dL (9.8-20.1); Bilirubin, Total 1.1 mg/dL (0.2-1.2); Calc. Creatinine Clearance 46 mL/min (70-130); Carbon Dioxide 24 mmol/L (22-29); Chloride 103 mmol/L (98-107); Globulin 3.8 g/dL (2.4-3.5); Glucose 212 mg/dL (70-105); Potassium 3.4 mmol/L (3.5-5.1); Protein, Total 7.5 g/dL (6.0-8.3); Sodium 140 mmol/L (136-145)
[2020-12-18 11:47] LABS: Hemoglobin 15.4 g/dL (12.0-16.0); Mean Corpuscular HGB CONC 33.9 g/dL (32.0-36.0); Mean Corpuscular Hemoglobin 28.1 pg (27.0-31.0); Mean Corpuscular Volume 82.7 fL (78.0-98.0); Platelet Count 158 thou/uL (130-400); RBC Distribution Width 14.1 % (11.5-14.5); Red Blood Cell (RBC) Count 5.48 mill/uL (4.20-5.40); White Blood Cell (WBC) Count 4.8 thou/uL (4.8-10.8)
[2020-12-18 12:51] LABS: #Lymphocytes 0.8 thou/uL (1.20-3.40); #Monocytes 0.2 thou/uL (0.11-0.59); #Neutrophils 3.9 thou/uL (1.40-6.50); %Basophils 0.1 % (0.0-1.0); %Eosinophils 0.3 % (0.0-10.0); %Lymphocytes 16.1 % (21.0-51.0); %Monocytes 3.1 % (0.0-10.0); %Neutrophils 80.5 % (42.0-75.0); Mean Platelet Volume 12.1 fL (7.4-10.4)
[2020-12-18] MEDS ORDERED: Furosemide 20 MG/2 ML VIAL SLOW IVP SCH (14:00)
[2020-12-18] MEDS ORDERED: Potassium Chloride 20 MEQ TAB PO SCH (15:30)
[2020-12-18] MEDS: HumaLOG 300 UNITS/3 ML VIAL SC PRN (17:11)
[2020-12-18 18:42] LABS: Lactic Acid 2.5 mmol/L (0.5-2.2)
[2020-12-18] MEDS: Mometasone 200 MCG/Formoterol 5 MCG 120 PUFF INHALER INH SCH (19:11)
[2020-12-18] MEDS ORDERED: Carvedilol 3.125 MG TAB PO SCH (21:00)
[2020-12-18] MEDS ORDERED: Carvedilol 6.25 MG TAB PO SCH (21:00)
[2020-12-18] MEDS: Apixaban 2.5 MG TAB PO SCH (21:13)
[2020-12-18] MEDS: Famotidine 20 MG TAB PO SCH (21:13)
[2020-12-19 05:30] LABS: #Eosinphils 0.1 thou/uL (0.0-0.7); #Monocytes 0.8 thou/uL (0.11-0.59); #Neutrophils 4.8 thou/uL (1.40-6.50); %Basophils 0.1 % (0.0-1.0); %Eosinophils 0.9 % (0.0-10.0); %Lymphocytes 14.6 % (21.0-51.0); %Monocytes 12.5 % (0.0-10.0); %Neutrophils 71.9 % (42.0-75.0); Mean Corpuscular HGB CONC 32.8 g/dL (32.0-36.0); Mean Corpuscular Hemoglobin 27.2 pg (27.0-31.0); Mean Platelet Volume 11.9 fL (7.4-10.4); Platelet Count 137 thou/uL (130-400); Red Blood Cell (RBC) Count 4.79 mill/uL (4.20-5.40); White Blood Cell (WBC) Count 6.7 thou/uL (4.8-10.8)
[2020-12-19 05:50] LABS: Anion Gap 13 mmol/L (10-20); BUN (Urea Nitrogen) 17 mg/dL (9.8-20.1); Calc. Creatinine Clearance 67 mL/min (70-130); Calcium 8.8 mg/dL (7.8-10.44); Carbon Dioxide 29 mmol/L (22-29); Chloride 105 mmol/L (98-107); Glucose 130 mg/dL (70-105); Potassium 3.5 mmol/L (3.5-5.1); Sodium 143 mmol/L (136-145)
[2020-12-19] MEDS: Apixaban 2.5 MG TAB PO SCH ×2 (09:10→22:35)
[2020-12-19] MEDS: methylPREDNISolone Sod Succ 40 MG VIAL IVP SCH (09:11)
[2020-12-19] MEDS: Famotidine 20 MG TAB PO SCH ×2 (09:11→22:35)
[2020-12-19] MEDS: Mometasone 200 MCG/Formoterol 5 MCG 120 PUFF INHALER INH SCH ×2 (11:34→18:58)
[2020-12-19] MEDS: HumaLOG 300 UNITS/3 ML VIAL SC PRN ×3 (11:56→22:36)
[2020-12-19] MEDS ORDERED: Dextrose 50% Abboject 50 ML SYRINGE SLOW IVP PRN (21:33)
[2020-12-19] MEDS ORDERED: Dextrose 5% in Water 1,000 ML IV PRN (21:33)
[2020-12-20] MEDS: Mometasone 200 MCG/Formoterol 5 MCG 120 PUFF INHALER INH SCH (07:29)
[2020-12-20 08:43] LABS: Anion Gap 12 mmol/L (10-20); BUN (Urea Nitrogen) 14 mg/dL (9.8-20.1); Calc. Creatinine Clearance 72 mL/min (70-130); Calcium 8.5 mg/dL (7.8-10.44); Carbon Dioxide 30 mmol/L (22-29); Chloride 104 mmol/L (98-107); Glucose 118 mg/dL (70-105); Potassium 3.5 mmol/L (3.5-5.1); Sodium 142 mmol/L (136-145)
[2020-12-20] MEDS: Apixaban 2.5 MG TAB PO SCH ×2 (08:47→20:49)
[2020-12-20] MEDS: methylPREDNISolone Sod Succ 40 MG VIAL IVP SCH (08:47)
[2020-12-20] MEDS: Famotidine 20 MG TAB PO SCH ×2 (08:47→20:49)
[2020-12-20] MEDS: HumaLOG 300 UNITS/3 ML VIAL SC PRN ×2 (11:53→16:51)
[2020-12-21] MEDS: Mometasone 200 MCG/Formoterol 5 MCG 120 PUFF INHALER INH SCH ×2 (00:18→07:17)
[2020-12-21] MEDS ORDERED: Digoxin 0.5 MG/2 ML AMP ONE ×2 (09:45→10:11)
[2020-12-21] MEDS ORDERED: Diltiazem 125 MG in Sodium Chloride 0.9% 100 ML IVPB SCH (10:00)
[2020-12-21] MEDS: Apixaban 2.5 MG TAB PO SCH (10:06)
[2020-12-21] MEDS: Famotidine 20 MG TAB PO SCH (10:06)
[2020-12-21] MEDS: methylPREDNISolone Sod Succ 40 MG VIAL IVP SCH (10:07)
[2020-12-21] MEDS ORDERED: Digoxin 0.5 MG/2 ML AMP SLOW IVP SCH ×5 (10:15→23:00)
[2020-12-21] MEDS ORDERED: Sodium Chloride 0.9% 1,000 ML IV SCH (10:15)
[2020-12-21 11:17] LABS: Free T4 (Free Thyroxine) 0.95 ng/dL (0.70-1.48); Thyroid Stimulating Hormone 1.2865 uIU/mL (0.35-4.94)
[2020-12-21] MEDS: Albumin 25% 25 GM/100 ML BOT IVPB SCH ×2 (13:15→16:32)
[2020-12-21] MEDS: HumaLOG 300 UNITS/3 ML VIAL SC PRN ×2 (18:00→20:53)
[2020-12-21] MEDS ORDERED: Lantus 1000 UNITS/10 ML VIAL SC SCH (18:11)
[2020-12-21 18:47] LABS: #Lymphocytes 0.5 thou/uL (1.20-3.40); #Monocytes 0.2 thou/uL (0.11-0.59); #Neutrophils 4.6 thou/uL (1.40-6.50); %Basophils 0.1 % (0.0-1.0); %Eosinophils 0.1 % (0.0-10.0); %Lymphocytes 8.8 % (21.0-51.0); %Neutrophils 87.9 % (42.0-75.0); Mean Corpuscular HGB CONC 32.7 g/dL (32.0-36.0); Mean Corpuscular Hemoglobin 27.4 pg (27.0-31.0); Mean Corpuscular Volume 83.9 fL (78.0-98.0); Mean Platelet Volume 11.6 fL (7.4-10.4); Platelet Count 145 thou/uL (130-400); Red Blood Cell (RBC) Count 4.74 mill/uL (4.20-5.40); White Blood Cell (WBC) Count 5.3 thou/uL (4.8-10.8)
[2020-12-21 19:07] LABS: Anion Gap 14 mmol/L (10-20); BUN (Urea Nitrogen) 14 mg/dL (9.8-20.1); Calc. Creatinine Clearance 48 mL/min (70-130); Calcium 8.5 mg/dL (7.8-10.44); Carbon Dioxide 25 mmol/L (22-29); Chloride 103 mmol/L (98-107); Glucose 455 mg/dL (70-105); Potassium 4.4 mmol/L (3.5-5.1); Sodium 138 mmol/L (136-145)
[2020-12-21] MEDS: Apixaban 5 MG TAB PO SCH (20:49)
[2020-12-22 05:51] LABS: Anion Gap 12 mmol/L (10-20); BUN (Urea Nitrogen) 14 mg/dL (9.8-20.1); Calc. Creatinine Clearance 70 mL/min (70-130); Calcium 8.7 mg/dL (7.8-10.44); Carbon Dioxide 30 mmol/L (22-29); Chloride 104 mmol/L (98-107); Glucose 190 mg/dL (70-105); Potassium 3.7 mmol/L (3.5-5.1); Sodium 142 mmol/L (136-145)
[2020-12-22] MEDS: Mometasone 200 MCG/Formoterol 5 MCG 120 PUFF INHALER INH SCH ×3 (07:15→19:43)
[2020-12-22] MEDS: Apixaban 5 MG TAB PO SCH ×2 (08:57→20:50)
[2020-12-22] MEDS: Carvedilol 3.125 MG TAB PO SCH ×2 (08:57→16:22)
[2020-12-22] MEDS: predniSONE 5 MG TAB PO SCH (08:57)
[2020-12-22] MEDS: Digoxin 0.25 MG TAB PO SCH (08:57)
[2020-12-22] MEDS: HumaLOG 300 UNITS/3 ML VIAL SC PRN (17:46)
[2020-12-23 07:49] VITALS: TEMP 98.3
[2020-12-23] MEDS: Mometasone 200 MCG/Formoterol 5 MCG 120 PUFF INHALER INH SCH (08:27)
[2020-12-23] MEDS: Carvedilol 3.125 MG TAB PO SCH (09:12)
[2020-12-23] MEDS: Digoxin 0.25 MG TAB PO SCH (09:12)
[2020-12-23] MEDS: Apixaban 5 MG TAB PO SCH (09:12)
[2020-12-23] MEDS: predniSONE 5 MG TAB PO SCH (09:12)
[2020-12-23] MEDS ORDERED: Furosemide 40 MG TAB PO SCH (09:30)
[2020-12-23 11:54] VITALS: BP 134/90
[2020-12-23 13:16] LABS: Anion Gap 11 mmol/L (10-20); BUN (Urea Nitrogen) 13 mg/dL (9.8-20.1); Calc. Creatinine Clearance 76 mL/min (70-130); Calcium 8.5 mg/dL (7.8-10.44); Carbon Dioxide 30 mmol/L (22-29); Chloride 103 mmol/L (98-107); Glucose 139 mg/dL (70-105); Potassium 3.6 mmol/L (3.5-5.1); Sodium 140 mmol/L (136-145)
[2020-12-23 13:54] LABS: Band 1 % (5-11); Eosinophils 6 % (0-10); Large Platelets SLIGHT; Lymphocytes 9 % (21-51); MDiff Complete? YES; Mean Corpuscular HGB CONC 32.3 g/dL (32.0-36.0); Mean Corpuscular Hemoglobin 27.2 pg (27.0-31.0); Mean Corpuscular Volume 84.3 fL (78.0-98.0); Mean Platelet Volume 11.5 fL (7.4-10.4); Monocytes 13 % (0-10); Neutrophil 64 % (42-75); Platelet Count 123 thou/uL (130-400); Platelet Morphology Comment Appears Adequate; Reactive Lymphocytes 7 % (0-10); Red Blood Cell (RBC) Count 4.77 mill/uL (4.20-5.40); Target Cells SLIGHT = 2-5 cells (100X) (0-1/hpf)
[2020-12-24] MEDS ORDERED: Furosemide 40 MG TAB PO SCH (07:30)
== END 2020-12-23 15:20 | disposition home or self-care (01) | DRG 196 ==
LOC: 2NO 08:52
PROVIDERS: ADMIT Student in an Organized Health Care Education/Training Program; ATTEND Internal Medicine
DX: J84.10 Pulmonary fibrosis, unspecified (principal); J96.20 Acute and chronic respiratory failure, unspecified whether with hypoxia or hypercapnia; I50.43 Acute on chronic combined systolic (congestive) and diastolic (congestive) heart failure; J44.1 Chronic obstructive pulmonary disease with (acute) exacerbation; B18.1 Chronic viral hepatitis B without delta-agent; I42.8 Other cardiomyopathies; I11.0 Hypertensive heart disease with heart failure; I48.0 Paroxysmal atrial fibrillation; K21.9 Gastro-esophageal reflux disease without esophagitis; K74.69 Other cirrhosis of liver; E11.69 Type 2 diabetes mellitus with other specified complication; E78.2 Mixed hyperlipidemia; Z90.710 Acquired absence of both cervix and uterus; Z87.891 Personal history of nicotine dependence; Z79.51 Long term (current) use of inhaled steroids; Z79.01 Long term (current) use of anticoagulants; Z79.84 Long term (current) use of oral hypoglycemic drugs
CPT/HCPCS: 36415; 36416; 71046; 80048; 83605; 83735; 83880; 84439; 84443; 84481; 85025; 93005; 93010; 93306; 93798; 94640; J1160; J1815; J1940; J2920; J7050; J7512; J7620; P9047

== ENCOUNTER 2022-07-14 23:45 | Inpatient (IN) | payer OTHER, MEDICAID ==
[2022-07-15] MEDS ORDERED: Ondansetron PF 4 MG/2 ML Vial IVP PRN (03:22)
[2022-07-15 03:26] VITALS: BMI 18.1
[2022-07-15 05:48] LABS: #Lymphocytes 0.6 thou/uL (1.20-3.40); #Monocytes 0.4 thou/uL (0.11-0.59); #Neutrophils 14.4 thou/uL (1.40-6.50); %Basophils 0.2 % (0.0-1.0); %Lymphocytes 3.8 % (21.0-51.0); %Monocytes 2.4 % (0.0-10.0); %Neutrophils 93.5 % (42.0-75.0); Hemoglobin 12.2 g/dL (12.0-16.0); Mean Corpuscular HGB CONC 33.4 g/dL (32.0-36.0); Mean Corpuscular Hemoglobin 24.2 pg (27.0-31.0); Mean Corpuscular Volume 72.3 fl (78.0-98.0); Mean Platelet Volume 9.5 fL (7.4-10.4); Platelet Count 109 10x3/uL (130-400); RBC Distribution Width 19.2 % (11.5-14.5); Red Blood Cell (RBC) Count 5.04 mill/uL (4.20-5.40); White Blood Cell (WBC) Count 15.4 10x3/uL (4.8-10.8)
[2022-07-15] MEDS: methylPREDNISolone Sod Succ 40 MG VIAL IVP SCH ×4 (05:49→23:04)
[2022-07-15 06:14] LABS: Troponin I 0.016 ng/mL (< 0.028)
[2022-07-15 06:15] LABS: ALT (SGPT) 20 U/L (8-55); AST (SGOT) 32 U/L (5-34); Albumin 3.4 g/dL (3.5-5.0); Alkaline Phosphatase 113 U/L (40-110); Bilirubin, Direct 0.7 mg/dL (0.1-0.3); Bilirubin, Total 1.1 mg/dL (0.2-1.2)
[2022-07-15 06:16] LABS: Anion Gap 16 mmol/L (10-20); BUN (Urea Nitrogen) 16 mg/dL (9.8-20.1); Calc. Creatinine Clearance 42 mL/min (70-130); Calcium 8.3 mg/dL (7.8-10.44); Carbon Dioxide 18 mmol/L (22-29); Chloride 104 mmol/L (98-107); Estimated GFR 56; Glucose 329 mg/dL (70-105); Magnesium 1.8 mg/dL (1.6-2.6); Potassium 3.5 mmol/L (3.5-5.1); Sodium 134 mmol/L (136-145)
[2022-07-15] MEDS ORDERED: Dextrose 5% in Water 1,000 ML IV PRN (06:32)
[2022-07-15] MEDS ORDERED: Dextrose 50% Abboject 50 ML SYRINGE SLOW IVP PRN (06:32)
[2022-07-15] MEDS: HumaLOG 300 UNITS/3 ML VIAL SC PRN ×4 (06:45→21:04)
[2022-07-15] MEDS: Ipratropium Bromide 2.5 ml Neb NEB SCH ×4 (11:10→22:21)
[2022-07-15] MEDS: Albuterol 200 PUFF (6.7GM INHALER) INH SCH ×5 (11:10→22:05)
[2022-07-15] MEDS ORDERED: Ipratropium 200 Puff Oral Inhaler INH SCH (19:15)
[2022-07-15] MEDS: Acetaminophen 325 MG TAB PO PRN (21:05)
[2022-07-15] MEDS: cefTRIAXone\\ROCEPHIN 1 GM in Sodium Chloride 0.9% 100 ML IVPB SCH (21:05)
[2022-07-15] MEDS: Benzonatate 100 MG CAP PO PRN (21:05)
[2022-07-15] MEDS: Azithromycin 500 MG in Sodium Chloride 0.9% 250 ML 250 ML IVPB SCH (22:00)
[2022-07-15] MEDS: Ipratropium 200 Puff Oral Inhaler INH SCH (22:05)
[2022-07-16] MEDS: Albuterol 200 PUFF (6.7GM INHALER) INH SCH ×5 (01:39→19:12)
[2022-07-16] MEDS: Ipratropium 200 Puff Oral Inhaler INH SCH ×5 (01:40→19:12)
[2022-07-16] MEDS: methylPREDNISolone Sod Succ 40 MG VIAL IVP SCH ×4 (05:16→23:47)
[2022-07-16] MEDS: Acetaminophen 325 MG TAB PO PRN ×3 (05:16→22:12)
[2022-07-16 05:45] LABS: Anion Gap 14 mmol/L (10-20); BUN (Urea Nitrogen) 25 mg/dL (9.8-20.1); Calc. Creatinine Clearance 54 mL/min (70-130); Carbon Dioxide 21 mmol/L (22-29); Chloride 108 mmol/L (98-107); Estimated GFR 76; Glucose 175 mg/dL (70-105); Potassium 3.6 mmol/L (3.5-5.1); Sodium 139 mmol/L (136-145)
[2022-07-16 06:19] LABS: Anisocytosis SLIGHT = 6-15 cells (100X) (0-5/hpf); Hemoglobin 11.5 g/dL (12.0-16.0); Lymphocytes 4 % (21-51); MDiff Complete? YES; Mean Corpuscular HGB CONC 34.1 g/dL (32.0-36.0); Mean Corpuscular Hemoglobin 24.7 pg (27.0-31.0); Mean Corpuscular Volume 72.3 fl (78.0-98.0); Mean Platelet Volume 9.5 fL (7.4-10.4); Microcytosis SLIGHT = 6-15 cells (100X) (0-5/hpf); Monocytes 2 % (0-10); Neutrophil 94 % (42-75); Platelet Count 111 10x3/uL (130-400); Platelet Morphology Comment Appears Decreased; RBC Distribution Width 19.1 % (11.5-14.5); Red Blood Cell (RBC) Count 4.64 mill/uL (4.20-5.40); Target Cells MODERATE= 6-15 cells (100X) (0-1/hpf); White Blood Cell (WBC) Count 16.1 10x3/uL (4.8-10.8)
[2022-07-16] MEDS ORDERED: Furosemide 20 MG TAB PO SCH (08:00)
[2022-07-16] MEDS: Benzonatate 100 MG CAP PO PRN ×3 (08:32→22:13)
[2022-07-16] MEDS: Digoxin 0.25 MG TAB PO SCH (08:32)
[2022-07-16] MEDS: Sacubitril 49 MG/Valsartan 51 MG TABLET PO SCH ×2 (08:33→20:24)
[2022-07-16] MEDS: PARoxetine 20 MG TAB PO SCH (08:33)
[2022-07-16] MEDS: Apixaban 5 MG TAB PO SCH ×2 (08:33→20:24)
[2022-07-16] MEDS: Rifaximin 550 MG TAB PO SCH ×2 (08:33→20:24)
[2022-07-16] MEDS: metFORMIN 500 MG TAB PO SCH ×2 (08:34→17:24)
[2022-07-16] MEDS: Carvedilol 3.125 MG TAB PO SCH ×2 (08:34→17:24)
[2022-07-16] MEDS: Flecainide 50 MG TAB PO SCH ×2 (08:34→20:25)
[2022-07-16] MEDS: Aspirin 81 mg Enteric Coated Tablet PO SCH (08:34)
[2022-07-16] MEDS ORDERED: ENTECAVIR 1 MG PO SCH (09:00)
[2022-07-16] MEDS: HumaLOG 300 UNITS/3 ML VIAL SC PRN (17:25)
[2022-07-16] MEDS: Mometasone 100 MCG/PUFF (1 INHALER) INH SCH (19:13)
[2022-07-16] MEDS: Atorvastatin Calcium 40 MG TAB PO SCH (20:25)
[2022-07-16] MEDS: cefTRIAXone\\ROCEPHIN 1 GM in Sodium Chloride 0.9% 100 ML IVPB SCH (22:15)
[2022-07-16] MEDS: Azithromycin 500 MG in Sodium Chloride 0.9% 250 ML 250 ML IVPB SCH (22:43)
[2022-07-17] MEDS: ALBUTEROL INH SCH ×7 (05:13→23:17)
[2022-07-17] MEDS: IPRATROPIUM BROMIDE INH SCH ×7 (05:13→23:17)
[2022-07-17] MEDS: Benzonatate 100 MG CAP PO PRN ×3 (05:14→23:37)
[2022-07-17] MEDS: methylPREDNISolone Sod Succ 40 MG VIAL IVP SCH ×4 (05:14→23:31)
[2022-07-17 05:26] LABS: Anion Gap 12 mmol/L (10-20); BUN (Urea Nitrogen) 27 mg/dL (9.8-20.1); Calc. Creatinine Clearance 50 mL/min (70-130); Calcium 8.7 mg/dL (7.8-10.44); Carbon Dioxide 24 mmol/L (22-29); Chloride 107 mmol/L (98-107); Estimated GFR 68; Glucose 248 mg/dL (70-105); Sodium 139 mmol/L (136-145)
[2022-07-17 05:31] LABS: Band 1 % (5-11); Hemoglobin 11.3 g/dL (12.0-16.0); Hypochromia SLIGHT = 6-15 cells (100X) (0-5/hpf); Lymphocytes 1 % (21-51); MDiff Complete? YES; Mean Corpuscular HGB CONC 33.8 g/dL (32.0-36.0); Mean Corpuscular Hemoglobin 24.4 pg (27.0-31.0); Mean Corpuscular Volume 72.2 fl (78.0-98.0); Monocytes 6 % (0-10); Neutrophil 92 % (42-75); Platelet Count 121 10x3/uL (130-400); Platelet Morphology Comment Appears Adequate; RBC Distribution Width 19.3 % (11.5-14.5); Red Blood Cell (RBC) Count 4.61 mill/uL (4.20-5.40); White Blood Cell (WBC) Count 15.7 10x3/uL (4.8-10.8)
[2022-07-17] MEDS: HumaLOG 300 UNITS/3 ML VIAL SC PRN ×3 (05:59→21:46)
[2022-07-17] MEDS: Mometasone 100 MCG/PUFF (1 INHALER) INH SCH ×2 (07:30→18:20)
[2022-07-17] MEDS: PARoxetine 20 MG TAB PO SCH (09:52)
[2022-07-17] MEDS: Furosemide 20 MG TAB PO SCH (09:52)
[2022-07-17] MEDS: Rifaximin 550 MG TAB PO SCH ×2 (09:52→20:29)
[2022-07-17] MEDS: metFORMIN 500 MG TAB PO SCH ×2 (09:52→18:22)
[2022-07-17] MEDS: Aspirin 81 mg Enteric Coated Tablet PO SCH (09:52)
[2022-07-17] MEDS: Apixaban 5 MG TAB PO SCH ×2 (09:52→20:29)
[2022-07-17] MEDS: Flecainide 50 MG TAB PO SCH ×2 (09:52→20:29)
[2022-07-17] MEDS: Sacubitril 49 MG/Valsartan 51 MG TABLET PO SCH ×2 (09:53→20:30)
[2022-07-17] MEDS: Digoxin 0.25 MG TAB PO SCH (09:53)
[2022-07-17] MEDS: Carvedilol 3.125 MG TAB PO SCH ×2 (09:54→18:22)
[2022-07-17] MEDS: guaiFENesin ER 600 MG TAB PO SCH (20:29)
[2022-07-17] MEDS: Atorvastatin Calcium 40 MG TAB PO SCH (20:30)
[2022-07-17] MEDS: cefTRIAXone\\ROCEPHIN 1 GM in Sodium Chloride 0.9% 100 ML IVPB SCH (21:47)
[2022-07-17] MEDS: Azithromycin 500 MG in Sodium Chloride 0.9% 250 ML 250 ML IVPB SCH (22:20)
[2022-07-18] MEDS: ALBUTEROL INH SCH ×6 (03:30→22:57)
[2022-07-18] MEDS: IPRATROPIUM BROMIDE INH SCH ×6 (03:30→22:57)
[2022-07-18] MEDS: HumaLOG 300 UNITS/3 ML VIAL SC PRN ×4 (06:32→21:48)
[2022-07-18] MEDS: methylPREDNISolone Sod Succ 40 MG VIAL IVP SCH ×3 (06:33→18:28)
[2022-07-18] MEDS: Furosemide 20 MG TAB PO SCH (07:52)
[2022-07-18] MEDS: Mometasone 100 MCG/PUFF (1 INHALER) INH SCH ×2 (08:23→18:23)
[2022-07-18] MEDS: Carvedilol 3.125 MG TAB PO SCH ×2 (08:40→17:43)
[2022-07-18] MEDS: metFORMIN 500 MG TAB PO SCH ×2 (08:40→17:43)
[2022-07-18] MEDS: Flecainide 50 MG TAB PO SCH ×2 (09:17→21:35)
[2022-07-18] MEDS: Digoxin 0.25 MG TAB PO SCH (09:17)
[2022-07-18] MEDS: guaiFENesin ER 600 MG TAB PO SCH ×2 (09:17→21:35)
[2022-07-18] MEDS: Aspirin 81 mg Enteric Coated Tablet PO SCH (09:17)
[2022-07-18] MEDS: Apixaban 5 MG TAB PO SCH ×2 (09:17→21:35)
[2022-07-18] MEDS: Rifaximin 550 MG TAB PO SCH ×2 (09:18→21:36)
[2022-07-18] MEDS: Sacubitril 49 MG/Valsartan 51 MG TABLET PO SCH ×2 (09:18→21:35)
[2022-07-18] MEDS: PARoxetine 20 MG TAB PO SCH (09:18)
[2022-07-18] MEDS: Benzonatate 100 MG CAP PO PRN (18:32)
[2022-07-18] MEDS: Atorvastatin Calcium 40 MG TAB PO SCH (21:35)
[2022-07-18] MEDS: cefTRIAXone\\ROCEPHIN 1 GM in Sodium Chloride 0.9% 100 ML IVPB SCH (21:47)
[2022-07-18] MEDS: Azithromycin 500 MG in Sodium Chloride 0.9% 250 ML 250 ML IVPB SCH (22:28)
[2022-07-19] MEDS: methylPREDNISolone Sod Succ 40 MG VIAL IVP SCH ×4 (00:04→18:29)
[2022-07-19] MEDS: IPRATROPIUM BROMIDE INH SCH ×5 (03:21→21:45)
[2022-07-19] MEDS: ALBUTEROL INH SCH ×5 (03:21→21:45)
[2022-07-19] MEDS: HumaLOG 300 UNITS/3 ML VIAL SC PRN ×4 (05:34→23:25)
[2022-07-19] MEDS: Mometasone 100 MCG/PUFF (1 INHALER) INH SCH ×3 (07:29→18:57)
[2022-07-19] MEDS: Sacubitril 49 MG/Valsartan 51 MG TABLET PO SCH ×2 (09:05→21:44)
[2022-07-19] MEDS: Digoxin 0.25 MG TAB PO SCH (09:05)
[2022-07-19] MEDS: Furosemide 20 MG TAB PO SCH (09:05)
[2022-07-19] MEDS: Carvedilol 3.125 MG TAB PO SCH ×2 (09:06→17:18)
[2022-07-19] MEDS: PARoxetine 20 MG TAB PO SCH (09:06)
[2022-07-19] MEDS: metFORMIN 500 MG TAB PO SCH ×2 (09:06→17:18)
[2022-07-19] MEDS: Rifaximin 550 MG TAB PO SCH ×2 (09:06→22:09)
[2022-07-19] MEDS: guaiFENesin ER 600 MG TAB PO SCH ×2 (09:06→21:43)
[2022-07-19] MEDS: Apixaban 5 MG TAB PO SCH ×2 (09:06→21:44)
[2022-07-19] MEDS: Flecainide 50 MG TAB PO SCH ×2 (09:07→21:44)
[2022-07-19] MEDS: Aspirin 81 mg Enteric Coated Tablet PO SCH (09:07)
[2022-07-19] MEDS: Benzonatate 100 MG CAP PO PRN (13:39)
[2022-07-19] MEDS: Acetaminophen 325 MG TAB PO PRN (17:18)
[2022-07-19] MEDS: Atorvastatin Calcium 40 MG TAB PO SCH (21:43)
[2022-07-19] MEDS: cefTRIAXone\\ROCEPHIN 1 GM in Sodium Chloride 0.9% 100 ML IVPB SCH (22:20)
[2022-07-19] MEDS: Azithromycin 500 MG in Sodium Chloride 0.9% 250 ML 250 ML IVPB SCH (23:21)
[2022-07-20] MEDS: IPRATROPIUM BROMIDE INH SCH ×4 (00:20→10:49)
[2022-07-20] MEDS: ALBUTEROL INH SCH ×4 (00:20→10:49)
[2022-07-20] MEDS: methylPREDNISolone Sod Succ 40 MG VIAL IVP SCH ×2 (00:49→06:00)
[2022-07-20] MEDS: HumaLOG 300 UNITS/3 ML VIAL SC PRN (06:00)
[2022-07-20] MEDS: Mometasone 100 MCG/PUFF (1 INHALER) INH SCH (06:49)
[2022-07-20] MEDS ORDERED: predniSONE 20 MG TAB PO SCH (08:00)
[2022-07-20] MEDS: metFORMIN 500 MG TAB PO SCH (08:15)
[2022-07-20] MEDS: Carvedilol 3.125 MG TAB PO SCH (08:16)
[2022-07-20] MEDS: Furosemide 20 MG TAB PO SCH (08:16)
[2022-07-20] MEDS ORDERED: Cefdinir 300 MG CAP PO SCH (09:00)
[2022-07-20] MEDS: Apixaban 5 MG TAB PO SCH (09:41)
[2022-07-20] MEDS: Flecainide 50 MG TAB PO SCH (09:41)
[2022-07-20] MEDS: Digoxin 0.25 MG TAB PO SCH (09:42)
[2022-07-20] MEDS: Aspirin 81 mg Enteric Coated Tablet PO SCH (09:42)
[2022-07-20] MEDS: Rifaximin 550 MG TAB PO SCH (09:42)
[2022-07-20] MEDS: Sacubitril 49 MG/Valsartan 51 MG TABLET PO SCH (09:43)
[2022-07-20] MEDS: guaiFENesin ER 600 MG TAB PO SCH (09:43)
[2022-07-20] MEDS: PARoxetine 20 MG TAB PO SCH (09:43)
[2022-07-20 12:20] VITALS: BP 124/77; TEMP 98.7
== END 2022-07-20 12:35 | disposition home or self-care (01) | DRG 191 ==
LOC: 2SW 23:45 → UNDOADMIN 23:45 → 2SW 07-15 03:22
PROVIDERS: ADMIT Internal Medicine; ATTEND Internal Medicine
DX: J44.1 Chronic obstructive pulmonary disease with (acute) exacerbation (principal); E87.1 Hypo-osmolality and hyponatremia; I50.42 Chronic combined systolic (congestive) and diastolic (congestive) heart failure; J84.9 Interstitial pulmonary disease, unspecified; J96.11 Chronic respiratory failure with hypoxia; I11.0 Hypertensive heart disease with heart failure; E78.5 Hyperlipidemia, unspecified; E11.9 Type 2 diabetes mellitus without complications; B18.2 Chronic viral hepatitis C; Z79.01 Long term (current) use of anticoagulants; Z79.84 Long term (current) use of oral hypoglycemic drugs; Z79.899 Other long term (current) drug therapy; Z90.710 Acquired absence of both cervix and uterus; Z87.891 Personal history of nicotine dependence
CPT/HCPCS: 36415; 36416; 80048; 80076; 83735; 84484; 85025; 93306; 94640; J0456; J0696; J1815; J2920; J3490; J7050; J7512

== ENCOUNTER 2022-11-09 10:31 | Inpatient (IN) | payer OTHER, MEDICAID ==
[2022-11-09 16:44] VITALS: BMI 19.1
[2022-11-09] MEDS ORDERED: Dextrose 50% Abboject 50 ML SYRINGE SLOW IVP PRN (17:27)
[2022-11-09] MEDS ORDERED: Glucagon 1 MG/ML KIT IM PRN (17:27)
[2022-11-09] MEDS ORDERED: Dextrose 5% in Water 1,000 ML IV PRN (17:27)
[2022-11-09] MEDS ORDERED: Senokot S 8.6-50 MG TAB PO PRN (17:29)
[2022-11-09] MEDS ORDERED: Ondansetron PF 4 MG/2 ML Vial IVP PRN (17:29)
[2022-11-09] MEDS: methylPREDNISolone Sod Succ 40 MG VIAL IVP SCH ×2 (17:49→23:30)
[2022-11-09] MEDS: Ipratropium/Albuterol 3 ML NEB NEB PRN ×2 (17:49→22:25)
[2022-11-09] MEDS: Guaifenesin DM 100-10/5 ML UDCUP PO PRN (17:49)
[2022-11-09] MEDS: Ipratropium/Albuterol 3 ML NEB NEB SCH (18:57)
[2022-11-09] MEDS: Apixaban 5 MG TAB PO SCH (20:30)
[2022-11-09] MEDS: Atorvastatin Calcium 40 MG TAB PO SCH (20:30)
[2022-11-09] MEDS: Flecainide 50 MG TAB PO SCH (20:31)
[2022-11-09] MEDS: Rifaximin 200 MG TAB PO SCH (20:31)
[2022-11-09] MEDS: Sacubitril 49 MG/Valsartan 51 MG TABLET PO SCH (20:32)
[2022-11-09] MEDS ORDERED: Carvedilol 3.125 MG TAB PO SCH (20:45)
[2022-11-09] MEDS: HumaLOG 300 UNITS/3 ML VIAL SC PRN (20:49)
[2022-11-10] MEDS: Ipratropium/Albuterol 3 ML NEB NEB SCH ×5 (02:12→23:08)
[2022-11-10 05:00] LABS: Hemoglobin A1c 5.3 % (4.0-6.0)
[2022-11-10 05:04] LABS: #Neutrophils 3.6 thou/uL (1.40-6.50); %Basophils 0.2 % (0.0-1.0); %Lymphocytes 10.2 % (21.0-51.0); %Monocytes 0.7 % (0.0-10.0); %Neutrophils 88.4 % (42.0-75.0); Hematocrit 33.3 % (36.0-47.0); Hemoglobin 10.7 g/dL (12.0-16.0); Mean Corpuscular HGB CONC 32.1 g/dL (32.0-36.0); Mean Corpuscular Hemoglobin 20.9 pg (27.0-31.0); Platelet Count 133 10x3/uL (130-400); RBC Distribution Width 20.9 % (11.5-14.5); Red Blood Cell (RBC) Count 5.12 mill/uL (4.20-5.40); White Blood Cell (WBC) Count 4.1 10x3/uL (4.8-10.8)
[2022-11-10 05:17] LABS: Anion Gap 15 mmol/L (10-20); BUN (Urea Nitrogen) 19 mg/dL (9.8-20.1); Calc. Creatinine Clearance 48 mL/min (70-130); Calcium 8.5 mg/dL (7.8-10.44); Carbon Dioxide 24 mmol/L (22-29); Chloride 103 mmol/L (98-107); Estimated GFR 61; Glucose 366 mg/dL (70-105); Magnesium 1.8 mg/dL (1.6-2.6); Potassium 3.7 mmol/L (3.5-5.1); Sodium 138 mmol/L (136-145)
[2022-11-10 05:48] LABS: Anisocytosis SLIGHT = 6-15 cells HPF (0-5); CellaVision Operator ID lab.abc; Microcytosis SLIGHT = 6-15 cells HPF (0-5); Platelet Adequacy Comment Platelets Normal; Polychromasia SLIGHT = 2-3 cells HPF (0-2); Target Cells MODERATE= 6-15 cells HPF (0-1)
[2022-11-10] MEDS: HumaLOG 300 UNITS/3 ML VIAL SC PRN ×3 (06:00→20:58)
[2022-11-10] MEDS: methylPREDNISolone Sod Succ 40 MG VIAL IVP SCH ×4 (06:00→23:51)
[2022-11-10] MEDS: Mometasone 100 MCG HFA INHALER (RT USE) INH SCH ×2 (06:46→18:22)
[2022-11-10] MEDS ORDERED: Magnesium 2 GM/50 ML(in water) 2 GM in Premix Bag 1 BAG IVPB SCH (09:00)
[2022-11-10] MEDS ORDERED: ENTECAVIR 1 MG PO SCH (09:00)
[2022-11-10] MEDS: Furosemide 20 MG TAB PO SCH (09:09)
[2022-11-10] MEDS: Carvedilol 3.125 MG TAB PO SCH ×2 (09:10→18:10)
[2022-11-10] MEDS: Sacubitril 49 MG/Valsartan 51 MG TABLET PO SCH ×2 (09:10→20:18)
[2022-11-10] MEDS: Digoxin 0.25 MG TAB PO SCH (09:11)
[2022-11-10] MEDS: Apixaban 5 MG TAB PO SCH ×2 (09:11→20:18)
[2022-11-10] MEDS: Azithromycin 250 MG TAB PO SCH (09:11)
[2022-11-10] MEDS: Aspirin 81 mg Enteric Coated Tablet PO SCH (09:11)
[2022-11-10] MEDS: PARoxetine 20 MG TAB PO SCH (09:12)
[2022-11-10] MEDS: Rifaximin 200 MG TAB PO SCH ×2 (09:12→20:18)
[2022-11-10] MEDS: Flecainide 50 MG TAB PO SCH ×2 (09:12→20:18)
[2022-11-10] MEDS ORDERED: Insulin Glargine 30 UNITS/0.3 ML VIAL SC SCH (10:45)
[2022-11-10] MEDS: Acetaminophen 325 MG TAB PO PRN ×2 (11:33→18:13)
[2022-11-10] MEDS: Guaifenesin DM 100-10/5 ML UDCUP PO PRN ×2 (11:33→20:57)
[2022-11-10] MEDS: Ipratropium/Albuterol 3 ML NEB NEB PRN (16:43)
[2022-11-10] MEDS: Atorvastatin Calcium 40 MG TAB PO SCH (20:18)
[2022-11-11] MEDS: methylPREDNISolone Sod Succ 40 MG VIAL IVP SCH ×3 (06:06→18:09)
[2022-11-11] MEDS: HumaLOG 300 UNITS/3 ML VIAL SC PRN ×3 (06:07→18:09)
[2022-11-11 06:16] LABS: #Monocytes 0.3 thou/uL (0.11-0.59); #Neutrophils 9.9 thou/uL (1.40-6.50); %Basophils 0.1 % (0.0-1.0); %Lymphocytes 3.7 % (21.0-51.0); %Monocytes 3.2 % (0.0-10.0); %Neutrophils 92.6 % (42.0-75.0); Hematocrit 35.7 % (36.0-47.0); Hemoglobin 11.1 g/dL (12.0-16.0); Mean Corpuscular HGB CONC 31.1 g/dL (32.0-36.0); Mean Corpuscular Hemoglobin 20.4 pg (27.0-31.0); Mean Corpuscular Volume 65.7 fl (78.0-98.0); Platelet Count 143 10x3/uL (130-400); RBC Distribution Width 21.3 % (11.5-14.5); Red Blood Cell (RBC) Count 5.43 mill/uL (4.20-5.40); White Blood Cell (WBC) Count 10.7 10x3/uL (4.8-10.8)
[2022-11-11] MEDS: Ipratropium/Albuterol 3 ML NEB NEB SCH ×4 (06:37→23:19)
[2022-11-11 06:39] LABS: Anion Gap 10 mmol/L (10-20); BUN (Urea Nitrogen) 22 mg/dL (9.8-20.1); Calc. Creatinine Clearance 46 mL/min (70-130); Calcium 8.5 mg/dL (7.8-10.44); Carbon Dioxide 27 mmol/L (22-29); Chloride 103 mmol/L (98-107); Estimated GFR 58; Glucose 392 mg/dL (70-105); Magnesium 2.2 mg/dL (1.6-2.6); Sodium 136 mmol/L (136-145)
[2022-11-11] MEDS: Mometasone 100 MCG HFA INHALER (RT USE) INH SCH ×2 (06:39→18:57)
[2022-11-11 08:21] LABS: Anisocytosis MODERATE=16-30 cells HPF (0-5); Burr Cells SLIGHT = 2-5 cells HPF (0-1); CellaVision Operator ID LAB.CMB; Large Platelets 6.7 % (0-5); Microcytosis MODERATE=15-30 cells HPF (0-5); Ovalocytes SLIGHT = 2-5 cells HPF (0-1); Platelet Adequacy Comment Platelets Normal; RBC Morphology 2; Target Cells MODERATE= 6-15 cells HPF (0-1); Tear Drops SLIGHT = 2-5 cells HPF (0-1)
[2022-11-11] MEDS ORDERED: Insulin Glargine 30 UNITS/0.3 ML VIAL SC SCH (09:00)
[2022-11-11] MEDS: Carvedilol 3.125 MG TAB PO SCH ×2 (09:40→18:09)
[2022-11-11] MEDS: Furosemide 20 MG TAB PO SCH (09:40)
[2022-11-11] MEDS: Guaifenesin DM 100-10/5 ML UDCUP PO PRN (09:40)
[2022-11-11] MEDS: Rifaximin 200 MG TAB PO SCH ×2 (09:41→20:29)
[2022-11-11] MEDS: Digoxin 0.25 MG TAB PO SCH (09:41)
[2022-11-11] MEDS: Azithromycin 250 MG TAB PO SCH (09:41)
[2022-11-11] MEDS: PARoxetine 20 MG TAB PO SCH (09:41)
[2022-11-11] MEDS: Apixaban 5 MG TAB PO SCH ×2 (09:41→20:29)
[2022-11-11] MEDS: Flecainide 50 MG TAB PO SCH ×2 (09:41→20:29)
[2022-11-11] MEDS: Aspirin 81 mg Enteric Coated Tablet PO SCH (09:41)
[2022-11-11] MEDS: Sacubitril 49 MG/Valsartan 51 MG TABLET PO SCH ×2 (09:42→20:29)
[2022-11-11] MEDS: Acetaminophen 325 MG TAB PO PRN (09:44)
[2022-11-11] MEDS ORDERED: Furosemide 40 MG/4 ML VIAL SLOW IVP SCH (13:15)
[2022-11-11] MEDS: cefTRIAXone\\ROCEPHIN 1 GM in Sodium Chloride 0.9% 100 ML IVPB SCH (13:43)
[2022-11-11 14:49] LABS: SARS-CoV-2 NAA Rapid Test Not Detected (NotDetected)
[2022-11-11] MEDS: guaiFENesin/Codeine 200 mg/20 mg 10 ml Cup PO PRN (14:57)
[2022-11-11] MEDS: Atorvastatin Calcium 40 MG TAB PO SCH (20:29)
[2022-11-12] MEDS: guaiFENesin/Codeine 200 mg/20 mg 10 ml Cup PO PRN ×2 (03:58→19:40)
[2022-11-12 05:17] LABS: #Neutrophils 9.9 thou/uL (1.40-6.50); %Lymphocytes 5.2 % (21.0-51.0); %Monocytes 8.4 % (0.0-10.0); %Neutrophils 86.1 % (42.0-75.0); Hematocrit 34.9 % (36.0-47.0); Hemoglobin 11.2 g/dL (12.0-16.0); Mean Corpuscular HGB CONC 32.1 g/dL (32.0-36.0); Mean Corpuscular Hemoglobin 20.9 pg (27.0-31.0); Platelet Count 160 10x3/uL (130-400); RBC Distribution Width 21.3 % (11.5-14.5); Red Blood Cell (RBC) Count 5.37 mill/uL (4.20-5.40); White Blood Cell (WBC) Count 11.5 10x3/uL (4.8-10.8)
[2022-11-12 05:40] LABS: Anion Gap 14 mmol/L (10-20); BUN (Urea Nitrogen) 23 mg/dL (9.8-20.1); Calc. Creatinine Clearance 48 mL/min (70-130); Calcium 8.2 mg/dL (7.8-10.44); Carbon Dioxide 25 mmol/L (22-29); Chloride 102 mmol/L (98-107); Estimated GFR 61; Glucose 264 mg/dL (70-105); Iron 43 ug/dL (50-170); Iron Binding Capacity, Total 341 mcg/dL (265-497); Potassium 4.2 mmol/L (3.5-5.1); Sodium 137 mmol/L (136-145)
[2022-11-12 05:46] LABS: Anisocytosis SLIGHT = 6-15 cells HPF (0-5); CellaVision Operator ID lab.abc; Hypochromia SLIGHT = 6-15 cells HPF (0-5); Microcytosis SLIGHT = 6-15 cells HPF (0-5); Platelet Adequacy Comment Platelets Normal; Polychromasia SLIGHT = 2-3 cells HPF (0-2); Target Cells SLIGHT = 2-5 cells HPF (0-1)
[2022-11-12] MEDS: HumaLOG 300 UNITS/3 ML VIAL SC PRN ×2 (06:34→18:09)
[2022-11-12] MEDS: Ipratropium/Albuterol 3 ML NEB NEB SCH ×4 (06:58→22:29)
[2022-11-12] MEDS: Mometasone 100 MCG HFA INHALER (RT USE) INH SCH ×2 (06:58→18:20)
[2022-11-12] MEDS: Carvedilol 3.125 MG TAB PO SCH ×2 (08:56→16:07)
[2022-11-12] MEDS: Flecainide 50 MG TAB PO SCH ×2 (09:28→21:37)
[2022-11-12] MEDS: Rifaximin 200 MG TAB PO SCH ×2 (09:28→21:37)
[2022-11-12] MEDS: PARoxetine 20 MG TAB PO SCH (09:28)
[2022-11-12] MEDS: Apixaban 5 MG TAB PO SCH ×2 (09:28→21:37)
[2022-11-12] MEDS: Sacubitril 49 MG/Valsartan 51 MG TABLET PO SCH ×2 (09:28→21:37)
[2022-11-12] MEDS: Azithromycin 250 MG TAB PO SCH (09:28)
[2022-11-12] MEDS: Aspirin 81 mg Enteric Coated Tablet PO SCH (09:28)
[2022-11-12] MEDS: Digoxin 0.25 MG TAB PO SCH (09:28)
[2022-11-12] MEDS: Furosemide 40 MG/4 ML VIAL SLOW IVP SCH (09:29)
[2022-11-12] MEDS: Insulin Glargine 30 UNITS/0.3 ML VIAL SC SCH (09:29)
[2022-11-12] MEDS: methylPREDNISolone Sod Succ 40 MG VIAL IVP SCH ×2 (13:02→21:38)
[2022-11-12] MEDS: cefTRIAXone\\ROCEPHIN 1 GM in Sodium Chloride 0.9% 100 ML IVPB SCH (13:02)
[2022-11-12] MEDS: Atorvastatin Calcium 40 MG TAB PO SCH (21:37)
[2022-11-13] MEDS: guaiFENesin/Codeine 200 mg/20 mg 10 ml Cup PO PRN (06:04)
[2022-11-13] MEDS: methylPREDNISolone Sod Succ 40 MG VIAL IVP SCH (06:04)
[2022-11-13] MEDS: HumaLOG 300 UNITS/3 ML VIAL SC PRN (06:09)
[2022-11-13] MEDS: Mometasone 100 MCG HFA INHALER (RT USE) INH SCH (07:48)
[2022-11-13] MEDS: Ipratropium/Albuterol 3 ML NEB NEB SCH ×2 (07:48→13:15)
[2022-11-13] MEDS ORDERED: Ferrous Sulfate 325 MG TAB PO SCH (08:00)
[2022-11-13] MEDS: Carvedilol 3.125 MG TAB PO SCH (10:33)
[2022-11-13] MEDS: Apixaban 5 MG TAB PO SCH (10:33)
[2022-11-13] MEDS: Azithromycin 250 MG TAB PO SCH (10:34)
[2022-11-13] MEDS: Digoxin 0.25 MG TAB PO SCH (10:34)
[2022-11-13] MEDS: Aspirin 81 mg Enteric Coated Tablet PO SCH (10:34)
[2022-11-13] MEDS: Flecainide 50 MG TAB PO SCH (10:34)
[2022-11-13] MEDS: Furosemide 40 MG/4 ML VIAL SLOW IVP SCH (10:34)
[2022-11-13] MEDS: Insulin Glargine 30 UNITS/0.3 ML VIAL SC SCH (10:35)
[2022-11-13] MEDS: PARoxetine 20 MG TAB PO SCH (10:35)
[2022-11-13] MEDS: Rifaximin 200 MG TAB PO SCH (10:35)
[2022-11-13] MEDS: Sacubitril 49 MG/Valsartan 51 MG TABLET PO SCH (10:35)
[2022-11-13 11:48] VITALS: BP 119/83; TEMP 97.8
[2022-11-13] MEDS ORDERED: Midazolam HCl 2 mg/2 ml Vial ONE (12:10)
== END 2022-11-13 14:00 | disposition home or self-care (01) | DRG 196 ==
LOC: 2NO 16:11 → 2SW 16:22 → OBSVTOIN 17:29
PROVIDERS: ADMIT Hospitalist; ATTEND Emergency Medicine
DX: J84.9 Interstitial pulmonary disease, unspecified (principal); I50.43 Acute on chronic combined systolic (congestive) and diastolic (congestive) heart failure; J96.21 Acute and chronic respiratory failure with hypoxia; B19.10 Unspecified viral hepatitis B without hepatic coma; J44.1 Chronic obstructive pulmonary disease with (acute) exacerbation; I24.8 Other forms of acute ischemic heart disease; I11.0 Hypertensive heart disease with heart failure; F10.90 Alcohol use, unspecified, uncomplicated; E78.5 Hyperlipidemia, unspecified; I48.0 Paroxysmal atrial fibrillation; G47.33 Obstructive sleep apnea (adult) (pediatric); Z20.822 Contact with and (suspected) exposure to COVID-19; Z79.82 Long term (current) use of aspirin; Z79.899 Other long term (current) drug therapy; Z99.81 Dependence on supplemental oxygen; D50.9 Iron deficiency anemia, unspecified; E11.65 Type 2 diabetes mellitus with hyperglycemia
CPT/HCPCS: 36415; 36416; 80048; 82728; 83036; 83540; 83550; 83735; 85025; 94640; J0696; J1815; J1940; J2250; J2920; J3475; J3490; J7620